=== PATIENT | male | born 1940 | race Caucasian/White ===

== ENCOUNTER 2017-05-08 06:32 | Day surgery (SDC) | payer OTHER ==
[~2017-05-08] VITALS: Ht 167.6 cm; Wt 92.7 kg
[~2017-05-08 06:32] MED LIST: FURO1TAB93 PO; LISI40TA PO; NEBI20 PO; PROS5TAB2 PO
[2017-05-08 06:52] VITALS: BP 128/65; PULSE 115; RESP 18; TEMP 97.7; O2SAT 94
[2017-05-08] MEDS ORDERED: AMLO5TAB2 PO (07:06)
[2017-05-08] MEDS ORDERED: LISI40TA PO (07:06)
[2017-05-08] MEDS ORDERED: FINA5TAB2 PO (07:06)
[2017-05-08] MEDS ORDERED: SPIR50TA PO (07:06)
[2017-05-08] MEDS ORDERED: OXYC1TAB63 PO (07:06)
[2017-05-08] MEDS ORDERED: IBUP1TAB7 PO (07:06)
[2017-05-08] MEDS ORDERED: UMEC1AER INH (07:06)
[2017-05-08] MEDS ORDERED: TRAM50TA PO (07:06)
[2017-05-08] MEDS ORDERED: HYDR50TA3 PO (07:06)
[2017-05-08] MEDS ORDERED: OMEP20TA93 PO (07:06)
[2017-05-08] MEDS ORDERED: METO50TA PO (07:06)
[2017-05-08] MEDS ORDERED: LIDOCAINE HCL 1% 20 ML VIAL ONE (07:58)
[2017-05-08] MEDS ORDERED: SODIUM CHLOR 0.9% 1000 ML IV SCH (08:00)
[2017-05-08] MEDS ORDERED: MIDAZOLAM HCL 2 MG/2 ML VIAL ONE (08:04)
[2017-05-08] MEDS ORDERED: fentaNYL CITRATE 250 MCG/5 ML AMP ONE (08:04)
--- NOTE | 2017-05-08 08:47 | PD.RAD ---
Post CT Procedure Prog Note Pre Procedure Diagnosis: (1) Lung mass Post Procedure Diagnosis: (1) Lung mass Procedure Date: May 08, 2017 Supervising Radiologist: Yung Lim Proceduralist/Assist: lisandra allan Estimated blood loss: none Anesthesia: Conscious Sedation Plan of Activity Patient to Unit: [facility] Patient Condition: Good See PACS Report for procedural detail/treatment Yung Lim MD May 08, 2017 08:47
[2017-05-08 09:00] VITALS: BP 110/57; PULSE 105; RESP 18; TEMP 98.5; O2SAT 92
[2017-05-08] MEDS ORDERED: oxyCODONE/ACETAMINOPHEN 5 MG/325 MG TAB PO PRN (09:00)
[2017-05-08 09:45] VITALS: BP 114/55; PULSE 98; RESP 18; O2SAT 97
[2017-05-08 10:15] VITALS: BP 106/55; PULSE 103; RESP 18; O2SAT 96
[2017-05-08 10:45] VITALS: BP 118/66; PULSE 105; RESP 18; O2SAT 94
--- NOTE | 2017-05-08 10:54 | RADRPT ---
EXAM DATE/TIME: 05/08/2017 10:05 [facility] COMPARISON: CT NEEDLE BIOPSY LUNG, RIGHT, May 08, 2017, 8:33. INDICATIONS : Post lung biopsy MEDICAL HISTORY : None. SURGICAL HISTORY : None. ENCOUNTER: Initial ACUITY: 1 day PAIN SCORE: 0/10 LOCATION: Bilateral chest FINDINGS: A single frontal expiratory view of the chest was performed. Right basilar pleural-parenchymal densit y and mass. No evidence of pneumothorax. Elevation right hemidiaphragm. Mediastinal structures are i n the midline. CONCLUSION: No pneumothorax status post biopsy on the right. Yung Lim MD on May 08, 2017 at 10:51 Board Certified Radiologist. This report was verified electronically.
[2017-05-08 11:15] VITALS: BP 113/52; PULSE 107; RESP 16; O2SAT 92
--- NOTE | 2017-05-08 16:05 | RADRPT ---
EXAM DATE/TIME: 05/08/2017 08:33 [facility] COMPARISON: No previous studies available for comparison. INDICATIONS : Right lung mass. SEDATION TIME: minutes BIOPSY SITE: MEDICATION(S): 1.) 2 mg midazolam (Versed) IV 2.) 150 mcg fentanyl (Sublimaze) IV DEVICE(S): 1.) 20 gauge Temno core biopsy needle MEDICAL HISTORY : Hypertension. Emphysema. Chronic obstructive pulmonary disease. SURGICAL HISTORY : None. ENCOUNTER: Initial ACUITY: 1 day PAIN SCORE: 0/10 LOCATION: Right chest A total of three core specimen(s) were obtained and sent to the laboratory for pathologic evaluation. PROCEDURE: 1. CT guided lung biopsy. 2. Conscious sedation with continuous EKG and oximetry monitoring. 3. EKG and oximetry remained stable throughout the procedure. Prior to the procedure informed consent was obtained. Any appropriate prior imaging studies were rev iewed. Using automated exposure control and adjustment of the mA and/or kV according to patient size, radiation dose was kept as low as reasonably achievable to obtain optimal diagnostic quality images. DICOM format image data is available electronically for review and comparison. The site was prepped in a sterile fashion. Full sterile technique was used, including cap, mask, alison rile gloves and gown and a large sterile sheet. Hand hygiene and 2% chlorhexidine and/or betadine/al cohol prep was utilized per protocol for cutaneous antisepsis. The skin and subcutaneous tissues wer e infiltrated with local anesthetic solution. With CT guidance the previously identified target was localized. Biopsy was performed using the presc ribed needle as above. Adequate hemostasis was obtained with compression at the puncture site. Follow-up CT scan reveals no pneumothorax. Conscious sedation was performed with the prescribed dosages and duration as above in the presence of an independent trained radiology nurse to assist in the monitoring of the patient. EKG and oximetry remained stable throughout the procedure. The patient tolerated the procedure well and there were no complications. The patient was sent to Radiology Outpatient Unit in stable condition. CONCLUSION: Uncomplicated CT guided biopsy of the mass in the right middle lobe at the cardiophrenic angle. Yung Lim MD on May 08, 2017 at 16:02 Board Certified Radiologist. This report was verified electronically.
== END 2017-05-08 13:10 | disposition home or self-care (01) ==
LOC: HRAD 06:32 → HRIP 06:43 → HRAD 13:10
PROVIDERS: ATTEND Internal Medicine Hematology & Oncology
DX: C34.91 Malignant neoplasm of unspecified part of right bronchus or lung (principal); I10 Essential (primary) hypertension; J44.9 Chronic obstructive pulmonary disease, unspecified
CPT/HCPCS: 32405; 71045; 77012; 88305; 88341; 88342; J2250; J3010; J7030

== ENCOUNTER → 2017-05-13 | Day surgery (SDC) | payer OTHER ==
[~2017-05-13] MED LIST changes: +AMLO5TAB2 PO; +BUPIVACAINE/EPINEPHRINE 0.25% PF 10 ML VIAL ONE; +COQ-100C5 PO; +DEXA1TAB PO; +DURA12DI T-DERMAL; +FINA5TAB2 PO; +FOLI1TAB6 PO; -FURO1TAB93 PO; +HYDR-3288 PO; +HYDR50TA3 PO; +IBUP1TAB7 PO; +LACT10SO PO; +LOPE-1 PO; +METO50TA PO; -NEBI20 PO; +OMEP20TA93 PO; +OXYC1TAB63 PO; +POME1CAP PO; +PROC10TA PO; -PROS5TAB2 PO; +RESV1CAP2 PO; +SELE50TA PO; +SODIUM CHLORIDE 0.9% INJ 0 ML ONE; +SPIR50TA PO; +TRAM50TA PO; +UMEC1AER INH; +VITA250T3 PO; +VITA400T18 PO; +ZOFR8TAB PO; +[UNRECOGNIZED DRUG - CODE] PO
== END | disposition home or self-care (01) ==
LOC: ESDC 12:06
PROVIDERS: ATTEND Surgery Trauma Surgery
DX: C34.90 Malignant neoplasm of unspecified part of unspecified bronchus or lung (principal); Z53.9 Procedure and treatment not carried out, unspecified reason
CPT/HCPCS: J1642

== ENCOUNTER 2017-05-22 12:09 | Inpatient (IN) | payer OTHER ==
[2017-05-22] VITALS (11 sets, daily range): BP systolic 92–135; BP diastolic 54–82; PULSE 105–122; RESP 13–24; TEMP 97.6–98; O2SAT 94–98
[~2017-05-22] VITALS: Ht 170.2 cm; Wt 81.0 kg
[~2017-05-22 12:09] MED LIST changes: -BUPIVACAINE/EPINEPHRINE 0.25% PF 10 ML VIAL ONE; -COQ-100C5 PO; -DEXA1TAB PO; -DURA12DI T-DERMAL; -FOLI1TAB6 PO; -HYDR-3288 PO; -LACT10SO PO; -LOPE-1 PO; -POME1CAP PO; -PROC10TA PO; -RESV1CAP2 PO; -SELE50TA PO; -SODIUM CHLORIDE 0.9% INJ 0 ML ONE; -VITA250T3 PO; -VITA400T18 PO; -ZOFR8TAB PO; -[UNRECOGNIZED DRUG - CODE] PO
[2017-05-22] MEDS ORDERED: SODIUM CHLOR 0.9% 1000 ML INJ 1,000 ML IV SCH (12:23)
[2017-05-22] MEDS ORDERED: SODIUM CHLORIDE 0.9% FLUSH 10 ML FLUSH IV FLUSH PRN (12:30)
--- NOTE | 2017-05-22 12:34 | PD ---
HPI Chief Complaint: General Weakness Time Seen by Provider: 12:22 Travel History International Travel<30 days: No Contact w/Intl Traveler<30days: No Traveled to known affect area: No History of Present Illness HPI Patient is a 76-year-old male presenting to emergency department for evaluation of generalized weakness. Patient was at the oncology clinic today where he was noted to have a systolic blood pressure in the 70s. He reported feeling short of breath and the event was called to transport patient. Patient states he's had a decreased appetite and has felt weak for several days. He reports mild abdominal pain, loose stools last night. He denies any nausea or vomiting, fever, chills, chest pain. Symptom onset was gradual, exacerbating factors include activity. There were no alleviating factors. Patient was diagnosed with lung cancer in March and he had his first round of chemotherapy last Friday. A note was sent from the nurse at the oncology clinic and family reported to them that his blood pressure has been lower at home as well. He has not had any blood pressure medications this morning. He does have a fentanyl patch on and took a dose of hydrocodone around 9 AM this morning. Past medical history significant for COPD, lung cancer, hypertension, BPH. Patient is also undergoing radiation therapy. PFSH Past Medical History Arthritis: Yes Cancer: Yes (lung) Chemotherapy: Yes (LUNG CANCER ) Genitourinary: Yes (BPH) Hypertension: Yes Implanted Vascular Access Dvce: Yes (left chest port) Respiratory: Yes (copd, emphysema) ?: Not Past Surgical History Cholecystectomy: Yes Joint Replacement: No Pacemaker: No Social History Alcohol Use: No Tobacco Use: No Substance Use: No Allergies-Medications (Allergen,Severity, Reaction): Coded Allergies: No Known Allergies (Unverified , 05/06/14) Reported Meds & Prescriptions Reported Meds & Active Scripts Active Reported Pomegranate (Pomegranate Fruit Extract) 250 Mg Capsule 250 Mg PO DAILY Resveratrol 250 Mg Cap 250 Mg PO DAILY Coq-10 Tr (Coenzyme Q10 (Ubidecarenone)) 100 Mg Cap 100 Mg PO DAILY Oceanic Selenium (Selenium) 50 Mcg Tab 50 Mcg PO DAILY Vitamin E (Vitamin E Acid Succinate) 400 Unit Tablet 400 Units PO DAILY Vitamin C (Ascorbic Acid) 250 Mg Tab 500 Mg PO DAILY Vitamin A 25,000 Unit Capsule 25,000 Units PO DAILY Imodium A-D (Loperamide HCl) 2 Mg Capsule 2 Mg PO DIRECTED PRN One capsule after each loose stool. Not to exceed 4 tablets per day. Lactulose Liq (Lactulose) 10 Gm/15 Ml Soln 15 Ml PO Q6H PRN Prochlorperazine Maleate 10 Mg Tab 10 Mg PO HS Zofran (Ondansetron HCl) 8 Mg Tab 8 Mg PO TID [place] (Hydrocodone-Acetaminophen) 7.5-325 mg Tab 1 Tab PO Q4-6H PRN Duragesic Patch 72 HR (Fentanyl) 12 Mcg/Hr Patch 24 Mcg T-DERMAL Q72H Remove old patch when new one placed. Dexamethasone 1 Mg Tab 1 Mg PO DIRECTED Take 1 tablet (1mg) 2 days before & day after Chemo Folic Acid 1 Mg Tablet 1 Mg PO DAILY Spironolactone 50 Mg Tab 50 Mg PO DAILY Finasteride 5 Mg Tab 5 Mg PO DAILY Do not crush. Amlodipine (Amlodipine Besylate) 5 Mg Tab 5 Mg PO DAILY Metoprolol Tartrate 50 Mg Tab 50 Mg PO DAILY Lisinopril 40 Mg Tab 40 Mg PO DAILY Anoro Ellipta Inh (Umeclidinium/Vilanterol) 62.5-25 Mcg/Act Aero 1 Puff INH DAILY Review of Systems Except as stated in HPI: all other systems reviewed are Neg General / Constitutional: No: Fever, Chills HENT: No: Headaches Cardiovascular: Positive: Edema, No: Chest Pain or Discomfort Respiratory: Positive: Shortness of Breath Gastrointestinal: Positive: Diarrhea, Abdominal Pain, Changes in Bowel Habits, Loss of Appetite, No: Nausea, Vomiting Genitourinary: Positive: Decreased Urinary Output Musculoskeletal: No: Myalgias Neurologic: Positive: Weakness, No: Dizziness, Syncope, Focal Abnormalities Physical Exam Narrative GENERAL: Overweight, well-developed, alert elderly gentleman. Resting comfortably in no acute distress. SKIN: Warm and dry. HEAD: Atraumatic. Normocephalic. EYES: Pupils equal and round. No scleral icterus. No injection or drainage. ENT: No nasal bleeding or discharge. Mucous membranes pink and moist. NECK: Trachea midline. No JVD. CARDIOVASCULAR: Mildly tachycardic RESPIRATORY: No accessory muscle use. Prolonged expiratory wheezes in bases bilaterally. GASTROINTESTINAL: Abdomen soft, mildly tender diffusely, mildly distended. Hepatic and splenic margins not palpable. Positive bowel sounds, positive guarding, no rebound. MUSCULOSKELETAL: Extremities without clubbing, cyanosis. 1+ pitting edema. No obvious deformities. NEUROLOGICAL: Awake and alert. No obvious cranial nerve deficits. Motor grossly within normal limits. Five out of 5 muscle strength in the arms and legs. Normal speech. PSYCHIATRIC: Appropriate mood and affect; insight and judgment normal. Data Data Last Documented VS Vital Signs Date Time Temp Pulse Resp B/P (MAP) Pulse Ox O2 Delivery O2 Flow Rate FiO2 05/22/17 12:49 110 20 98 Nasal Cannula 2.00 05/22/17 12:20 109/57 (74) Orders Orders Complete Blood Count With Diff (05/22/17 12:23) Comprehensive Metabolic Panel (05/22/17 12:23) Lipase (05/22/17 12:23) Prothrombin Time / Inr (Pt) (05/22/17 12:23) Act Partial Throm Time (Ptt) (05/22/17 12:23) Urinalysis - C+S If Indicated (05/22/17 12:23) Iv Access Insert/Monitor (05/22/17 12:23) Ecg Monitoring (05/22/17 12:23) Oximetry (05/22/17 12:23) NPO (05/22/17 12:23) Sodium Chlor 0.9% 1000 Ml Inj (Ns 1000 M (05/22/17 12:23) Sodium Chloride 0.9% Flush (Ns Flush) (05/22/17 12:30) Electrocardiogram (05/22/17 12:23) Chest, Single Ap (05/22/17 12:23) Oxygen Administration (05/22/17 12:23) Ct Abd/Pel W/O Iv Contrast (05/22/17 ) B-Type Natriuretic Peptide (05/22/17 12:34) Admit Order (Ed Use Only) (05/22/17 13:43) Labs Laboratory Tests Test 05/22/17 12:42 White Blood Count 0.9 TH/MM3 Red Blood Count 3.29 MIL/MM3 Hemoglobin 10.3 GM/DL Hematocrit 30.2 % Mean Corpuscular Volume 91.8 FL Mean Corpuscular Hemoglobin 31.2 PG Mean Corpuscular Hemoglobin Concent 33.9 % Red Cell Distribution Width 12.8 % Platelet Count 116 TH/MM3 Mean Platelet Volume 8.6 FL CBC Comment AUTO DIFF Differential Total Cells Counted 100 Neutrophils % (Manual) 69 % Band Neutrophils % 7 % Lymphocytes % 18 % Monocytes % 2 % Eosinophils % 4 % Neutrophils # (Manual) 0.7 TH/MM3 Differential Comment FINAL DIFF MANUAL Toxic Granulation 2+ Platelet Estimate LOW Platelet Morphology Comment NORMAL Red Cell Morphology Comment NORMAL Prothrombin Time 10.7 SEC Prothromb Time International Ratio 1.1 RATIO Activated Partial Thromboplast Time 26.1 SEC Blood Urea Nitrogen 112 MG/DL Creatinine 2.51 MG/DL Random Glucose 165 MG/DL Total Protein 5.9 GM/DL Albumin 2.8 GM/DL Calcium Level 9.7 MG/DL Alkaline Phosphatase 51 U/L Aspartate Amino Transf (AST/SGOT) 5 U/L Alanine Aminotransferase (ALT/SGPT) 20 U/L Total Bilirubin 0.3 MG/DL Sodium Level 137 MEQ/L Potassium Level 4.3 MEQ/L Chloride Level 109 MEQ/L Carbon Dioxide Level 17.8 MEQ/L Anion Gap 10 MEQ/L Estimat Glomerular Filtration Rate 25 ML/MIN B-Type Natriuretic Peptide 45 PG/ML Lipase 71 U/L MDM Medical Decision Making Medical Screen Exam Complete: Yes Emergency Medical Condition: Yes Interpretation(s) Last Impressions Chest X-Ray 05/22/17 1223 Signed Impressions: Service Date/Time: April 12:41 - CONCLUSION: Increase in size of right pleural effusion and the right lung base consolidation and/or compressive collapse. Nino Brunner MD Laboratory Tests Test 05/22/17 12:42 White Blood Count 0.9 TH/MM3 Red Blood Count 3.29 MIL/MM3 Hemoglobin 10.3 GM/DL Hematocrit 30.2 % Mean Corpuscular Volume 91.8 FL Mean Corpuscular Hemoglobin 31.2 PG Mean Corpuscular Hemoglobin Concent 33.9 % Red Cell Distribution Width 12.8 % Platelet Count 116 TH/MM3 Mean Platelet Volume 8.6 FL CBC Comment AUTO DIFF Prothrombin Time 10.7 SEC Prothromb Time International Ratio 1.1 RATIO Activated Partial Thromboplast Time 26.1 SEC Blood Urea Nitrogen 112 MG/DL Creatinine 2.51 MG/DL Random Glucose 165 MG/DL Total Protein 5.9 GM/DL Albumin 2.8 GM/DL Calcium Level 9.7 MG/DL Alkaline Phosphatase 51 U/L Aspartate Amino Transf (AST/SGOT) 5 U/L Alanine Aminotransferase (ALT/SGPT) 20 U/L Total Bilirubin 0.3 MG/DL Sodium Level 137 MEQ/L Potassium Level 4.3 MEQ/L Chloride Level 109 MEQ/L Carbon Dioxide Level 17.8 MEQ/L Anion Gap 10 MEQ/L Estimat Glomerular Filtration Rate 25 ML/MIN Lipase 71 U/L Vital Signs Date Time Temp Pulse Resp B/P (MAP) Pulse Ox O2 Delivery O2 Flow Rate FiO2 05/22/17 12:20 105 20 109/57 (74) 98 Differential Diagnosis Metabolic abnormality versus cardiac arrhythmia versus congestive heart failure versus other Narrative Course Patient is a 76-year-old male presenting from the oncology office for evaluation of generalized weakness. Patient is mildly hypotensive and mildly tachycardic on arrival. Patient is requiring 2 L of oxygen to maintain O2 sat. Per EMS patient was mildly hypoxic on arrival and they placed the oxygen on him initially. He appears fatigued and is requiring oxygen at this time. Initially he had no complaints of abdominal pain however on exam he was tender to light palpation. He then admitted that he has had abdominal pain. Labs and imaging ordered and pending. Initial EKG shows sinus tachycardia with a right bundle branch block. Rate is 100. CBC with a white blood cell count of 0.9, this is new when compared to prior. Chemistry with elevated BUN and creatinine of 112/2.51 Chest x-ray was read by radiologist as increase in size of the right pleural effusion and the right lung base consolidation and/or compressive collapse. CT scan of the abdomen/pelvis with no acute findings. BNP is normal Discussed findings and plan of care with my attending physician. Patient will be admitted at this time. Discussed with Dr. Sanchez who accepted admission. Admission orders place. Diagnosis Primary Impression: Pleural effusion Additional Impressions: Neutropenia Qualified Codes: D70.9 - Neutropenia, unspecified Weakness generalized KELLIE (acute kidney injury) Lung cancer Qualified Codes: C34.90 - Malignant neoplasm of unspecified part of unspecified bronchus or lung Admitting Information Admitting Physician Requests: Admit Condition: Stable Caroline Carlson May 22, 2017 12:34
[2017-05-22 12:54] LABS: HEMATOCRIT 30.2 % (39.0-51.0); HEMOGLOBIN 10.3 GM/DL (13.0-17.0); MEAN CELL VOLUME 91.8 FL (80.0-100.0); MEAN CORPUSCULAR HEMOGLOBIN 31.2 PG (27.0-34.0); MEAN CORPUSCULAR HGB CONC 33.9 % (32.0-36.0); MEAN PLATELET VOLUME 8.6 FL (7.0-11.0); PLATELET COUNT 116 TH/MM3 (150-450); RED BLOOD COUNT 3.29 MIL/MM3 (4.50-5.90); RED CELL DISTRIBUTION WIDTH 12.8 % (11.6-17.2); WHITE BLOOD COUNT 0.9 TH/MM3 (4.0-11.0)
--- NOTE | 2017-05-22 13:05 | RADRPT ---
EXAM DATE/TIME: 05/22/2017 12:41 [facility] COMPARISON: CHEST EXPIRATION ONLY, May 08, 2017, 10:05. INDICATIONS : Short of breath. MEDICAL HISTORY : Carcinoma, lung. Hypertension. Emphysema. Chronic obstructive pulmonary disease. SURGICAL HISTORY : Infuse a port. ENCOUNTER: Initial ACUITY: 1 day PAIN SCORE: 0/10 LOCATION: Bilateral chest FINDINGS: Large right pleural effusion is present increased in size since prior exam. There is right lung base consolidation and/or compressive glass. Heart and mediastinum are unremarkable for technique. CONCLUSION: Increase in size of right pleural effusion and the right lung base consolidation and/or compressive c ollapse. Nino Brunner MD on May 22, 2017 at 12:59 Board Certified Radiologist. This report was verified electronically.
[2017-05-22 13:07] LABS: INTERNATIONAL NORMALIZED RATIO 1.1 RATIO; PROTHROMBIN TIME - PATIENT 10.7 SEC (9.8-11.6)
[2017-05-22 13:08] LABS: ALBUMIN 2.8 GM/DL (3.4-5.0); ALT (GPT) 20 U/L (12-78); AST (GOT) 5 U/L (15-37); BICARBONATE 17.8 MEQ/L (21.0-32.0); BLOOD UREA NITROGEN 112 MG/DL (7-18); CALCIUM 9.7 MG/DL (8.5-10.1); CHLORIDE 109 MEQ/L (98-107); CREATININE 2.51 MG/DL (0.60-1.30); GLOMERULAR FILTRATION RATE 25 ML/MIN (>89); GLUCOSE,RANDOM 165 MG/DL (74-106); LIPASE 71 U/L (73-393); SODIUM (NA) 137 MEQ/L (136-145)
[2017-05-22 13:10] LABS: ALKALINE PHOSPHATASE 51 U/L (45-117); TOTAL BILIRUBIN ADULT 0.3 MG/DL (0.2-1.0); TOTAL PROTEIN 5.9 GM/DL (6.4-8.2)
[2017-05-22] MEDS ORDERED: DURA12DI T-DERMAL (13:16)
[2017-05-22] MEDS ORDERED: ZOFR8TAB PO (13:16)
[2017-05-22] MEDS ORDERED: HYDR-3288 PO (13:16)
[2017-05-22] MEDS ORDERED: PROC10TA PO (13:16)
[2017-05-22] MEDS ORDERED: DEXA1TAB PO (13:16)
[2017-05-22] MEDS ORDERED: FOLI1TAB6 PO (13:16)
[2017-05-22] MEDS ORDERED: LOPE-1 PO (13:16)
[2017-05-22] MEDS ORDERED: LACT10SO PO (13:16)
[2017-05-22] MEDS ORDERED: VITA250T3 PO (13:24)
[2017-05-22] MEDS ORDERED: VITA400T18 PO (13:24)
[2017-05-22] MEDS ORDERED: RESV1CAP2 PO (13:24)
[2017-05-22] MEDS ORDERED: COQ-100C5 PO (13:24)
[2017-05-22] MEDS ORDERED: POME1CAP PO (13:24)
[2017-05-22] MEDS ORDERED: [UNRECOGNIZED DRUG - CODE] PO (13:24)
[2017-05-22] MEDS ORDERED: SELE50TA PO (13:24)
[2017-05-22 13:35] LABS: BANDS 7 % (0-6); LYMPHOCYTES 18 % (9-44); MONOCYTES 2 % (0-8); NEUTROPHIL # MANUAL DIFF 0.7 TH/MM3 (1.8-7.7); POLYS (SEG NEUTROPHILS) 69 % (16-70)
[2017-05-22 13:36] LABS: TOXIC GRANULATION 2+ (NORMAL)
[2017-05-22] MEDS ORDERED: NALOXONE HCL 0.4 MG/ML AMP IV PUSH PRN (13:45)
[2017-05-22] MEDS ORDERED: ONDANSETRON HCL 4 MG/2 ML VIAL IVP PRN (13:45)
[2017-05-22] MEDS ORDERED: ACETAMINOPHEN 325 MG TAB PO PRN (13:45)
--- NOTE | 2017-05-22 14:07 | RADRPT ---
EXAM DATE/TIME: 05/22/2017 13:32 [facility] COMPARISON: No previous studies available for comparison. INDICATIONS : Weakness, diarrhea . ORAL CONTRAST: No oral contrast ingested. RADIATION DOSE: 16.41 CTDIvol (mGy) MEDICAL HISTORY : Hypertension. Metastatic, lung. SURGICAL HISTORY : None. ENCOUNTER: Initial ACUITY: 1 day PAIN SCALE: 7/10 LOCATION: Right TECHNIQUE: Volumetric scanning of the abdomen and pelvis was performed. Using automated exposure control and ad justment of the mA and/or kV according to patient size, radiation dose was kept as low as reasonably achievable to obtain optimal diagnostic quality images. DICOM format image data is available electro nically for review and comparison. FINDINGS: LOWER LUNGS: There is a large right-sided pleural effusion with associated passive atelectasis of the right lower lobe. No effusion seen on the left. The heart is normal in size without pericardial effusion. There i s a rounded masslike area consolidation involving the anterior inferior portion of the right hilum. T his measures 4.3 x 2.6 cm. And 1.6 x 1.6 cm pleural-based nodule seen anteriorly within the lingula. Adjacent to this is smooth pleural thickening. A calcified granuloma is seen within the left base. LIVER: Homogeneous density without lesion. There is no dilation of the biliary tree. Prior cholecystectomy. SPLEEN: Normal size without lesion. PANCREAS: Within normal limits. KIDNEYS: Normal in size and shape. There is no mass, stone, or hydronephrosis. ADRENAL GLANDS: There is a 4.0 x 2.9 cm mass involving the left adrenal gland. The right adrenal gland is unremarkabl e. VASCULAR: Calcified atherosclerotic plaque throughout the aorta and inflow vessels. No aneurysmal change. BOWEL/MESENTERY: The stomach, small bowel, and colon demonstrate no acute abnormality. There is no free intraperitone al air or fluid. ABDOMINAL WALL: Within normal limits. RETROPERITONEUM: There is no lymphadenopathy. BLADDER: No wall thickening or mass. REPRODUCTIVE: Within normal limits. INGUINAL: There is no lymphadenopathy or hernia. MUSCULOSKELETAL: Multiple lytic metastatic lesions scattered throughout the pelvis, lumbar spine, and visualized thora cic spine, and visualized ribs bilaterally. The largest lesion involves the right sacral ala. There i s a metastatic lesion involving the left posterior portion of the T10 vertebral body that extends int o the neural foramen. There is a metastatic lesion involving the L1 pedicle on the left which also ex tends towards the neural foramen. CONCLUSION: 1. Diffuse metastatic disease to the visualized bony structures, left adrenal gland, and visualized l solomon parenchyma. Special note is made of destructive lesions involving the T10 and L1 levels that invo lve the left neural foramen and could be possible source of the left radiculopathy. 2. Large right-sided pleural effusion. 3. Prior cholecystectomy. Quinn Huang Jr., MD on May 22, 2017 at 13:57 Board Certified Radiologist. This report was verified electronically.
[2017-05-22 14:42] LABS: BILIRUBIN, URINE NEG (NEG); BLOOD, URINE NEG (NEG); GLUCOSE,URINE NEG (NEG); HYALINE CAST, URINE 3 /lpf (RARE); KETONE, URINE NEG (NEG); MUCUS URINE FEW /lpf (OCC); NITRITE,URINE NEG (NEG); SQUAMOUS EPITHELIAL CELL URINE <1 /hpf (0-5); URINE COLOR LIGHT-YELLOW (YELLW/STRAW); URINE LEUKOCYTE ESTERASE NEG (NEG)
--- NOTE | 2017-05-22 14:42 | HHI.HP ---
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 History mostly taken from patient's ywugonim-kr-jxz Gerry. Patient was short of breath and did not want to give a history. Per jzokxmss-co-slf patient had chemotherapy on Friday in which yesterday he developed diarrhea, shortness of breathing, generalized weakness, and emesis. Patient has had decreased appetite recently. Positive for chills but denies any fevers. Daughter in law stated that she also checked his blood pressure yesterday in which his blood pressure was in the lower 100s. She stated that on his antihypertensive medication is usually normal. She also stated that patient had increase in his pain medication doses. She patient does complain of pain. Pain is located in the back. Daughter stated that pain has worsened and that is the reason why he had a recent increase and his [place]. Patient was seen in radiation with Leslie Nowak. He stated that they did vitals and he was sent to the emergency department because his vitals. Per ED provider she was told systolic blood pressure was in the 70s. During my interview the patient systolic blood pressure in the low 100s. Patient also asking for his Mucinex and pain medication. Per uqnwnkhv-oq-rgw patient saw Dr. Young plater helper and also sees Dr. Gregorio oncologist. Patient continues to smoke about 1-1/2 pack per day which is a lot less from his 3-4 packs a day. Occasionally drinks alcohol. Denies any illicit drug use. All other review system reviewed and negative. All other review system reviewed and negative. Past Family Social History Past Medical History Non-small cell lung cancer with metastases to the bone Hypertension Tobacco dependence Past Surgical History Left knee arthroscopically Cholecystectomy Biopsy of the lungs Reported Medications Pomegranate (Pomegranate Fruit Extract) 250 Mg Capsule 250 Mg PO DAILY Resveratrol 250 Mg Cap 250 Mg PO DAILY Coq-10 Tr (Coenzyme Q10 (Ubidecarenone)) 100 Mg Cap 100 Mg PO DAILY Oceanic Selenium (Selenium) 50 Mcg Tab 50 Mcg PO DAILY Vitamin E (Vitamin E Acid Succinate) 400 Unit Tablet 400 Units PO DAILY Vitamin C (Ascorbic Acid) 250 Mg Tab 500 Mg PO DAILY Vitamin A 25,000 Unit Capsule 25,000 Units PO DAILY Imodium A-D (Loperamide HCl) 2 Mg Capsule 2 Mg PO DIRECTED PRN One capsule after each loose stool. Not to exceed 4 tablets per day. Lactulose Liq (Lactulose) 10 Gm/15 Ml Soln 15 Ml PO Q6H PRN Prochlorperazine Maleate 10 Mg Tab 10 Mg PO HS Zofran (Ondansetron HCl) 8 Mg Tab 8 Mg PO TID [place] (Hydrocodone-Acetaminophen) 7.5-325 mg Tab 1 Tab PO Q4-6H PRN Duragesic Patch 72 HR (Fentanyl) 12 Mcg/Hr Patch 24 Mcg T-DERMAL Q72H Remove old patch when new one placed. Dexamethasone 1 Mg Tab 1 Mg PO DIRECTED Take 1 tablet (1mg) 2 days before & day after Chemo Folic Acid 1 Mg Tablet 1 Mg PO DAILY Spironolactone 50 Mg Tab 50 Mg PO DAILY Finasteride 5 Mg Tab 5 Mg PO DAILY Do not crush. Amlodipine (Amlodipine Besylate) 5 Mg Tab 5 Mg PO DAILY Metoprolol Tartrate 50 Mg Tab 50 Mg PO DAILY Lisinopril 40 Mg Tab 40 Mg PO DAILY Anoro Ellipta Inh (Umeclidinium/Vilanterol) 62.5-25 Mcg/Act Aero 1 Puff INH DAILY Allergies: Coded Allergies: No Known Allergies (Unverified , 05/06/14) Active Ordered Medications Current Medications Sodium Chloride 1,000 ml @ 1,000 mls/hr Q1H IV Last administered on 05/22/17at 12:58; Start 05/22/17 at 12:23; Stop 05/22/17 at 13:22; Status DC Sodium Chloride (NS Flush) 2 ml UNSCH PRN IV FLUSH FLUSH AFTER USING IV ACCESS ; Start 05/22/17 at 12:30; Stop 05/22/17 at 13:53; Status DC Sodium Chloride (NS Flush) 2 ml UNSCH PRN IV FLUSH FLUSH AFTER USING IV ACCESS ; Start 05/22/17 at 13:45 Sodium Chloride (NS Flush) 2 ml BID IV FLUSH ; Start 05/22/17 at 21:00 Acetaminophen (Tylenol) 650 mg Q4H PRN PO TEMP > 100.4; Start 05/22/17 at 13:45 Ondansetron HCl (Zofran Inj) 4 mg Q6H PRN IVP NAUSEA OR VOMITING; Start at 13:45 Naloxone HCl (Narcan Inj) 0.4 mg UNSCH PRN IV PUSH SEE LABEL COMMENTS; Start at 13:45 Guaifenesin (Mucinex Er) 1,200 mg BID PO ; Start 05/22/17 at 14:30 Dexamethasone (Decadron) 1 mg DAILY PO ; Start 05/23/17 at 09:00; Status UNV Folic Acid (Folate) 1 mg DAILY PO ; Start 05/23/17 at 09:00; Status UNV Non-Formulary Medication 500 mg DAILY PO ; Start 05/23/17 at 09:00; Status UNV Non-Formulary Medication 100 mg DAILY PO ; Start 05/23/17 at 09:00; Status UNV Non-Formulary Medication 250 mg DAILY PO ; Start 05/23/17 at 09:00; Status UNV Non-Formulary Medication 250 mg DAILY PO ; Start 05/23/17 at 09:00; Status UNV Non-Formulary Medication 50 mcg DAILY PO ; Start 05/23/17 at 09:00; Status UNV Non-Formulary Medication 25,000 units DAILY PO ; Start 05/23/17 at 09:00; Status UNV Non-Formulary Medication 400 units DAILY PO ; Start 05/23/17 at 09:00; Status UNV Acetaminophen/ Hydrocodone Bitart ([place] 5-325 Mg) 1 tab Q4H PRN PO pain>4; Start 05/22/17 at 14:45; Status UNV Family History Reviewed past family history noncontributory Social History Smokes one half pack per day of tobacco Occasional alcohol use Denies any illicit drug use. Physical Exam Vital Signs Vital Signs Date Time Temp Pulse Resp B/P (MAP) Pulse Ox O2 Delivery O2 Flow Rate FiO2 05/22/17 12:49 110 20 98 Nasal Cannula 2.00 05/22/17 12:49 98 Nasal Cannula 2.00 05/22/17 12:49 104 16 98 Nasal Cannula 2.00 05/22/17 12:20 105 16 109/57 (74) 98 Nasal Cannula 2.00 05/22/17 12:20 105 20 109/57 (74) 98 Physical Exam GENERAL: mild distress with labored breathing SKIN: No rashes, ecchymoses or lesions. Cool and dry. HEAD: Atraumatic. Normocephalic. No temporal or scalp tenderness. EYES: Pupils equal round and reactive. Extraocular motions intact. No scleral icterus. No injection or drainage. ENT: Nose without bleeding, purulent drainage or septal hematoma. Throat without erythema, tonsillar hypertrophy or exudate. Uvula midline. Airway patent. NECK: Trachea midline. No JVD or lymphadenopathy. Supple, nontender, no meningeal signs. CARDIOVASCULAR: Regular rate and rhythm without murmurs, gallops, or rubs. RESPIRATORY: Decreased breath sounds in the right basilar area otherwise clear to auscultation. No rhonchi or wheezing noted. GASTROINTESTINAL: Abdomen soft, non-tender, nondistended. No hepato-splenomegaly , or palpable masses. No guarding. MUSCULOSKELETAL: Positive tenderness to palpation in the lower back. +1 to trace edema the lower extremity. NEUROLOGICAL: Awake and alert. Cranial nerves II through XII intact. Motor and sensory grossly within normal limits. Five out of 5 muscle strength in all muscle groups. Normal speech. Laboratory Laboratory Tests Test 05/22/17 12:42 05/22/17 14:28 White Blood Count 0.9 Red Blood Count 3.29 Hemoglobin 10.3 Hematocrit 30.2 Mean Corpuscular Volume 91.8 Mean Corpuscular Hemoglobin 31.2 Mean Corpuscular Hemoglobin Concent 33.9 Red Cell Distribution Width 12.8 Platelet Count 116 Mean Platelet Volume 8.6 CBC Comment AUTO DIFF Differential Total Cells Counted 100 Neutrophils % (Manual) 69 Band Neutrophils % 7 Lymphocytes % 18 Monocytes % 2 Eosinophils % 4 Neutrophils # (Manual) 0.7 Differential Comment FINAL DIFF MANUAL Toxic Granulation 2+ Platelet Estimate LOW Platelet Morphology Comment NORMAL Red Cell Morphology Comment NORMAL Prothrombin Time 10.7 Prothromb Time International Ratio 1.1 Activated Partial Thromboplast Time 26.1 Blood Urea Nitrogen 112 Creatinine 2.51 Random Glucose 165 Total Protein 5.9 Albumin 2.8 Calcium Level 9.7 Alkaline Phosphatase 51 Aspartate Amino Transf (AST/SGOT) 5 Alanine Aminotransferase (ALT/SGPT) 20 Total Bilirubin 0.3 Sodium Level 137 Potassium Level 4.3 Chloride Level 109 Carbon Dioxide Level 17.8 Anion Gap 10 Estimat Glomerular Filtration Rate 25 B-Type Natriuretic Peptide 45 Lipase 71 Result Diagram: 05/22/17 1242 05/22/17 1242 Imaging Last Impressions Chest X-Ray 05/22/17 1223 Signed Impressions: Service Date/Time: April 12:41 - CONCLUSION: Increase in size of right pleural effusion and the right lung base consolidation and/or compressive collapse. Nino Brunner MD Abdomen/Pelvis CT 05/22/17 0000 Signed Impressions: Service Date/Time: April 13:32 - CONCLUSION: 1. Diffuse metastatic disease to the visualized bony structures, left adrenal gland, and visualized lung parenchyma. Special note is made of destructive lesions involving the T10 and L1 levels that involve the left neural foramen and could be possible source of the left radiculopathy. 2. Large right-sided pleural effusion. 3. Prior cholecystectomy. MD Jerri Garnica Jr. VTE Risk Assessment Caprini VTE Risk Assessment: Mod/High Risk (score >= 2) Caprini Risk Assessment Model Point Value = 1 Point Value = 2 Point Value = 3 Point Value = 5 Age 41-60 Minor surgery BMI > 25 kg/m2 Swollen legs Varicose veins or History of unexplained or recurrent spontaneous Oral contraceptives or hormone replacement Sepsis (< 1 month) Serious lung disease, including pneumonia (< 1 month) Abnormal pulmonary function Acute myocardial infarction Congestive heart failure (< 1 month) History of inflammatory bowel disease Medical patient at bed rest Age 61-74 Arthroscopic surgery Major open surgery (> 45 min) Laparoscopic surgery (> 45 min) Malignancy Confined to bed (> 72 hours) Immobilizing plaster cast Central venous access Age >= 75 History of VTE Family history of VTE Factor V Leiden Prothrombin [id number] Lupus anticoagulant Anticardiolipin antibodies Elevated serum homocysteine Heparin-induced thrombocytopenia Other congenital or acquired thrombophilia Stroke (< 1 month) Elective arthroplasty Hip, pelvis, or leg fracture Acute spinal cord injury (< 1 month) Prophylaxis Regimen Total Risk Factor Score Risk Level Prophylaxis Regimen 0-1 Low Early ambulation 2 Moderate Order ONE of the following: *Sequential Compression Device (SCD) *Heparin 5000 units SQ BID 3-4 Higher Order ONE of the following medications: *Heparin 5000 units SQ TID *Enoxaparin/Lovenox 40 mg SQ daily (WT < 150 kg, CrCl > 30 mL/min) *Enoxaparin/Lovenox 30 mg SQ daily (WT < 150 kg, CrCl > 10-29 mL/min) *Enoxaparin/Lovenox 30 mg SQ BID (WT < 150 kg, CrCl > 30 mL/min) AND/OR *Sequential Compression Device (SCD) 5 or more Highest Order ONE of the following medications: *Heparin 5000 units SQ TID (Preferred with Epidurals) *Enoxaparin/Lovenox 40 mg SQ daily (WT < 150 kg, CrCl > 30 mL/min) *Enoxaparin/Lovenox 30 mg SQ daily (WT < 150 kg, CrCl > 10-29 mL/min) *Enoxaparin/Lovenox 30 mg SQ BID (WT < 150 kg, CrCl > 30 mL/min) AND *Sequential Compression Device (SCD) Assessment and Plan Assessment and Plan This is a 76-year-old male with 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 Chest x-ray shows right-sided pleural effusion that was reviewed by me. -Patient currently on 2 L of oxygen but does have labored breathing. -We will supplement with oxygen. Consult plater helper. Recommend a therapeutic thoracentesis since patient is symptomatic. Will place order for that. Non-small cell lung cancer with metastases to the bone -Consult oncologist Dr. Gregorio. Neutropenia/anemia/mild thrombocytopenia -Status post chemotherapy on Friday -Consult his oncologist Dr. Gregorio. Hypotension -Review labs. Patient is third spacing with low albumin. Decrease oral intake along with diarrhea. -We will start IV fluids at a very low rate and be cautious due to pleural effusion. Will give a dose of albumin. -Will hold antihypertensive medication. Need to be cautious with pain medication due to side effects causing low blood pressure. Diarrhea -Mostly secondary to chemotherapy. Will check for C. difficile. -Refuse CT scan of the abdomen which shows metastases to the bones, left adrenal gland, and lungs. Acute on chronic pain secondary to metastatic disease -Patient on fentanyl patch and [place]. Will resume [place] at a low dose but will need to be cautious. If his blood pressure continues to improve and remain stable can be more aggressive with pain control. Acute on chronic renal failure -Patient was recently taken off of ibuprofen due to worsening renal function. -Most likely secondary to combination of hypotension and ibuprofen use. Not recommend NSAID use. -will give fluids as noted above. Ins and outs. Continue to monitor creatinine. Hypertension -Currently patient is hypotensive. See management as above. Failure to thrive -Secondary to cancer and chemotherapy treatment. -Will consult dietitian. Patient was put on Megace. Tobacco dependence -Patient has decreased amount of cigarettes he is smoking. Smoking cessation. DVT prophylaxis -Chemoprophylaxis held secondary to anticipating thoracentesis. Code Status DNR Discussed Condition With patient and with [id number]-[id number]. Physician Certification 2 Midnight Certification Type: Admission for Inpatient Services Order for Inpatient Services The services are ordered in accordance with Medicare regulations or non- Medicare payer requirements, as applicable. In the case of services not specified as inpatient-only, they are appropriately provided as inpatient services in accordance with the 2-midnight benchmark. Estimated LOS (days): 5 5 days is the estimated time the patient will need to remain in the hospital, assuming treatment plan goals are met and no additional complications. Post-Hospital Plan: Lidia Lezama MD May 22, 2017 14:42
[2017-05-22] MEDS ORDERED: ACETAMINOPHEN/HYDROcodone 325 MG/5 MG TAB PO PRN (14:45)
[2017-05-22] MEDS: guaiFENesin E.R. 600 MG TAB PO SCH (14:49)
[2017-05-22] MEDS ORDERED: ALBUMIN 25% INJ 50 ML IV ONE (15:15)
[2017-05-22] MEDS ORDERED: LIDOCAINE HCL 1% 20 ML VIAL ONE (15:48)
--- NOTE | 2017-05-22 16:06 | RADRPT ---
EXAM DATE/TIME: 05/22/2017 15:52 [facility] COMPARISON: CT NEEDLE BIOPSY LUNG, RIGHT, May 08, 2017, 8:33. CHEST EXPIRATION ONLY, May 08, 2017, 10:05 . INDICATIONS : Post right thoracentesis MEDICAL HISTORY : Hypertension. Metastatic, lung. SURGICAL HISTORY : None. ENCOUNTER: Subsequent ACUITY: 1 day PAIN SCORE: 3/10 LOCATION: Right chest FINDINGS: A single portable frontal view the chest shows mild atelectasis within the right base. No pneumothora x following right thoracentesis. The right lung has fully reexpanded. A masslike consolidation is aga in seen involving the right medial base. Stable. Left lung is clear with exception of areas of scarri ng. Heart is enlarged. No residual effusions. CONCLUSION: No pneumothorax following right thoracentesis. Quinn Huang Jr., MD on May 22, 2017 at 16:02 Board Certified Radiologist. This report was verified electronically.
--- NOTE | 2017-05-22 16:14 | RADRPT ---
EXAM DATE/TIME: 05/22/2017 14:56 [facility] COMPARISON: No previous studies available for comparison. EXTERNAL COMPARISON: [facility], XR CHEST, UPRIGHT, May 14 2017, PET/CT TUMOR, May 05, 2017, [facility], CT CHEST W /CONTRAST, April 29, 2017. INDICATIONS : Right pleural effusion. MEDICAL HISTORY : Benign prostatic hyperplasia, (BPH) Hypertension. Metastatic, lung. SURGICAL HISTORY : Cholecystectomy Port. ENCOUNTER: Initial ACUITY: 3 days PAIN SCORE: 4/10 LOCATION: Right chest FLUID: Total volume of 2400 cc of clear, yellow fluid was removed. Fluid was discarded. Thoracentesis was therapeutic only. TECHNIQUE: 1. Ultrasound guidance for thoracentesis. 2. Thoracentesis. The risks, benefits, and alternatives to ultrasound guided thoracentesis were explained to the patien t in lay simple terms, including the risk of bleeding and infection. Written and verbal informed con sent was obtained. Appropriate area for thoracentesis was marked under ultrasound guidance with the patient in the uprig ht position. Overlying skin was prepped and draped in the usual sterile fashion and with local anest hetic, a dermatotomy was made with an 11 blade scalpel. A 6 Brazilian thoracentesis catheter was placed in the pleural space and fluid was removed. Catheter was then removed and a sterile dressing applie d. There were no immediate complications. The patient tolerated the procedure well and the left the ultrasound suite in stable condition. Chest radiograph is to be obtained. CONCLUSION: Uncomplicated ultrasound guided right thoracentesis. Sampling was not requested. Quinn Huang Jr., MD on May 22, 2017 at 16:11 Board Certified Radiologist. This report was verified electronically.
[2017-05-22] MEDS: SODIUM CHLOR 0.9% 1000 ML INJ 1,000 ML IV SCH (18:30)
[2017-05-22] MEDS ORDERED: ACETAMINOPHEN/HYDROcodone 325 MG/10 MG TAB PO PRN (18:45)
[2017-05-22] MEDS ORDERED: MORPHINE SULFATE 2 MG/ML INJ IV PUSH PRN (18:45)
[2017-05-22] MEDS: FILGRASTIM 480 MCG/1.6 ML VIAL SQ SCH (19:07)
[2017-05-22] MEDS ORDERED: HYDROmorphone HCL PF 2 MG/ML VIAL IV PUSH ONE (19:45)
[2017-05-22] MEDS ORDERED: HYDROmorphone HCL PF 2 MG/ML VIAL IV PUSH PRN ×2 (19:45→20:15)
[2017-05-22] MEDS: MEGESTROL ACETATE SUSP 400 MG/10 ML CUP PO SCH (21:00)
[2017-05-22] MEDS: SODIUM CHLORIDE 0.9% FLUSH 10 ML FLUSH IV FLUSH SCH (21:00)
[2017-05-23] VITALS (22 sets, daily range): BP systolic 67–149; BP diastolic 43–74; PULSE 91–180; RESP 18–24; TEMP 97.9–98.7; O2SAT 95–100
[2017-05-23] MEDS: MEGESTROL ACETATE SUSP 400 MG/10 ML CUP PO SCH ×3 (06:01→15:20)
[2017-05-23] MEDS: SODIUM CHLORIDE 0.9% FLUSH 10 ML FLUSH IV FLUSH SCH ×2 (09:00→21:00)
[2017-05-23] MEDS ORDERED: [UNRECOGNIZED DRUG - OTHER] PO SCH (09:00)
[2017-05-23] MEDS ORDERED: LACTULOSE SYRUP 20 GM/30 ML CUP PO SCH (09:00)
[2017-05-23] MEDS ORDERED: COENZYME Q10 100 MG PO SCH (09:00)
[2017-05-23] MEDS ORDERED: RESVERATROL 250 MG PO SCH (09:00)
[2017-05-23] MEDS ORDERED: BETA CAROTENE 25,000 UNIT CAP PO SCH (09:00)
[2017-05-23] MEDS ORDERED: DEXAMETHASONE 0.5 MG TAB PO SCH (09:00)
[2017-05-23] MEDS ORDERED: SELENIUM 50 MCG PO SCH (09:00)
[2017-05-23] MEDS ORDERED: ASCORBIC ACID 500 MG TAB PO SCH (09:00)
[2017-05-23] MEDS ORDERED: PNEUMOCOCCAL POLYVALENT INJ 25 MCG/0.5 ML SYR IM ONE (09:00)
[2017-05-23] MEDS ORDERED: VITAMIN E 400 UNIT CAP PO SCH (09:00)
--- NOTE | 2017-05-23 09:55 | MB ---
cc: GENNA EM MD, RUBY ANNE E. M.D. DATE OF CONSULTATION 05/22/2017 DATE OF [address] Genna Em CHIEF COMPLAINT Dr. Em requested consultation for Mr. Acosta regarding metastatic pgx-njaqj-[id number] lung cancer post chemotherapy with neutropenia. HISTORY OF PRESENT ILLNESS Mr. Acosta is a 76-year-old man with a long history of tobacco use. He wade in [place]. He was found to have a large pleural based mass in the medial aspect of the right upper lobe with bony metastatic disease. CT/PET scan shows evidence of metastatic disease to the left adrenal gland in addition to a right pleural effusion and questionable solitary metastatic lesion to the liver. Biopsy showed a poorly differentiated non-small cell lung cancer, adenocarcinoma histology. EGFR, ALK, PD-L1 are still pending. He was offered palliative chemotherapy with carboplatin and Alimta on May 16, 2017. At that time, his creatinine was 1.6. His carboplatin was adjusted accordingly. Neulasta was requested through his insurance company, but was denied given that the stated risk of neutropenic fever associated with Alimta and carboplatin is only 5%. He was undergoing some palliative radiation treatment. He had progressive symptoms of weakness. He was short of breath. He was hypotensive at this time that his ymufykoy-at-jwz found him. He was advised to be brought to the emergency room. In the emergency room, he was afebrile with a temperature of 98.0. He was neutropenic, however with an ANC of 700. His heart rate was 105. His blood pressure was low at 109/57. Laboratory evaluation also shows thrombocytopenia, worsened renal insufficiency with a BUN of 112, creatinine of 2.51. He has stopped taking his ibuprofen at this point. He still has urinary symptoms as seen previously. He complains of nocturia. He is unable to empty his bladder completely. He feels that the bladder is still full. He had declined postvoid residual check in the clinic. He was pending follow up appointment with Dr. Barajas for his urologic symptoms. He was admitted to the hospital because of the above symptoms. Evaluation in the hospital shows worsening pleural effusion. In light of his symptoms, a thoracentesis was performed which was therapeutic. Mr. Acosta has received some benefit. He was complaining of a significant amount of pain. Pain-diane, his Fentanyl patch is increased to 25 mcg. He was taking his breakthrough medication. He is not taking any breakthrough medication and is quite uncomfortable all over at the time of the consultation. CT scan of the abdomen and pelvis showed the bony structures and a destructive lesion at T10 and 11 that is probably a source of his radiculopathy. These other sites are being targeted with radiation. He denies any fevers at home. He was feeling very weak this week. The rest of his review of systems is negative. PAST MEDICAL HISTORY 1. COPD 2. Chronic pain 3. Chronic tobacco use 4. Metastatic xxw-cbpko-jtea lung cancer adenocarcinoma Histology. 5 Chronic renal insufficiency 6. Chronic anemia PAST SURGICAL HISTORY 1. Left knee surgery 2. Colonoscopy 3. Port placement 4. Cholecystectomy 5. Gallbladder surgery ALLERGIES NO KNOWN DRUG ALLERGIES. FAMILY HISTORY Mother age 96. Father at age 56. SOCIAL HISTORY He is and retired. He smokes daily three packs a day for 60 years. He drinks daily. He drinks three drinks per day 7 days a week. Denies any illicit drug use. ALLERGIES NO KNOWN DRUG ALLERGIES. CURRENT MEDICATIONS Include: 1. Decadron 2. Folic acid 3. Vitamin C 4. Vitamin A 5. Vitamin E 6. Normal saline flush 7. V[place]on 8. Morphine 9. Neupogen was started PHYSICAL EXAMINATION VITAL SIGNS: Temperature 98.0, heart rate 120, respiratory rate 18, blood pressure 103/54, saturation 96%. GENERAL: Mr. Logan is a well-developed, heavy-set man forward head posturing. He looks uncomfortable sitting in a chair. His pupils are round and reactive to light and accommodation. Oropharynx is dry. NECK: Supple. LUNGS: With diminished breath sounds at the right lung base. CARDIOVASCULAR: Exam reveals tachycardia. ABDOMEN: Benign. EXTREMITIES: Lower extremities with no edema. LABORATORY DATA Significant for a BUN of 112, creatinine 2.5, white blood cell count 0.9, ANC of 700. ASSESSMENT/PLAN Mr. Acosta is a 76-year-old man with metastatic unn-qipef-hhgi lung cancer adenocarcinoma histology. He was treated with his first cycle of chemotherapy May 16, 2017. He is admitted with toxicity related to the chemotherapy, namely neutropenia. He is fortunately afebrile. He comes in with worsening shortness of breath, worsened renal insufficiency and hypotension. He is undergoing a thoracentesis with some relief of symptoms. He remains tachycardiac. We will continue support with IV fluid hydration gingerly. Neurology will be consulted. I suspect the renal insufficiency is related to the obstruction. He had declined a Hernadez catheter previously. It is tricky to place a Hernadez catheter at this point given that he is neutropenic. Nevertheless, a bladder scan will be performed if significantly full and unable to urinate, a Hernadez catheter will need to be placed. Urology Dr. Barajas will be consulted. Neupogen is initiated for support. Folic acid will continue because of the Alimta. His COPD will be managed by the primary team as he still has this underlying problem as he continues to smoke despite the cancer diagnosis. I will continue his long-acting pain medication of fentanyl 25 mcg patch. We will monitor closely his response. He is stating his pain is 6-7/10 which is an improvement from before. He may be a little sleepy, but we will monitor closely. Breakthrough medication will be monitored. Megace and bowel regimen will be started as well. MD AYLEEN Solis/GRACIE /7:32 PM /9:08 AM
[2017-05-23] MEDS ORDERED: ALTEPLASE RECOMBINANT 2 MG VIAL INTRACATH PRN (10:00)
--- NOTE | 2017-05-23 10:07 | PD.CONS ---
[facility] Service Urology Consult Requested By Dr. Gregorio Reason for Consult Difficulty urinating with elevation in the serum creatinine. Primary Care Physician Unknown Diagnosis: History of Present Illness Consulted to evaluate this pleasant 76-year-old gentleman with history BPH for difficulty urinating. Patient has a history of metastatic lung cancer being managed with chemotherapy and was recently admitted for symptoms of shortness of breath, generalized weakness and diarrhea. During his present consultation the patient complained of difficulty urinating with elevation of the serum creatinine measuring 2.51 thus prompting the urology consult. Patient has an established urologist Dr. Nilay Prieto who is treating the patient for BPH with finasteride. At the time of consultation, the patient reports that his voiding has improved. Laboratory studies from this morning demonstrated improvement of the serum creatinine now measuring 1.61. CT scanning was performed during present consultation consistent with diffuse metastatic lung cancer. The kidneys themselves appear normal without evidence of mass lesions or hydronephrosis. Review of Systems Constitutional: COMPLAINS OF: Fatigue, Change in appetite (diminished) Respiratory: COMPLAINS OF: Shortness of breath Gastrointestinal: COMPLAINS OF: Diarrhea Except as stated in HPI: all other systems reviewed are Neg Past Family Social History Past Medical History BPH Metastatic lung cancer Hypertension Past Surgical History Status post cholecystectomy Status post left knee surgery Reported Medications Refer to EMR Allergies: Coded Allergies: No Known Allergies (Unverified , 05/06/14) Active Ordered Medications Refer to EMR Family History Reviewed and noncontributory Social History care home smoker, Dickson smokes one half pack per day Occasional alcohol use Denies history intravenous drug abuse Physical Exam Vital Signs Date Time Temp Pulse Resp B/P (MAP) Pulse Ox O2 Delivery O2 Flow Rate FiO2 05/23/17 04:45 98.0 113 20 149/71 (97) 95 05/23/17 01:38 98.6 106 18 132/69 (90) 97 05/22/17 23:05 16 05/22/17 22:55 05/22/17 22:23 97.6 119 16 92/56 (68) 94 05/22/17 21:56 109 17 107/55 (72) 98 Nasal Cannula 2.00 05/22/17 21:30 108 15 101/82 (88) 97 Nasal Cannula 2.00 05/22/17 20:33 112 13 98/56 (70) 98 Nasal Cannula 2.00 05/22/17 20:09 115 18 97 2.00 05/22/17 20:08 115 18 115/56 (75) 97 Nasal Cannula 2.00 05/22/17 19:30 96 Nasal Cannula 2.00 05/22/17 18:16 96 Nasal Cannula 2.00 05/22/17 16:00 98.0 120 18 103/54 (70) 96 Nasal Cannula 2.00 05/22/17 15:37 98.0 122 24 135/67 (89) 98 05/22/17 12:49 110 20 98 Nasal Cannula 2.00 05/22/17 12:49 98 Nasal Cannula 2.00 05/22/17 12:49 104 16 98 Nasal Cannula 2.00 05/22/17 12:20 105 16 109/57 (74) 98 Nasal Cannula 2.00 05/22/17 12:20 105 20 109/57 (74) 98 Physical Exam GENERAL: This is a well-nourished, well-developed patient, in no apparent distress. SKIN: No rashes, ecchymoses or lesions. Cool and dry. HEAD: Atraumatic. Normocephalic. No temporal or scalp tenderness. EYES: Pupils equal round and reactive. Extraocular motions intact. No scleral icterus. No injection or drainage. ENT: Nose without bleeding, purulent drainage or septal hematoma. Throat without erythema, tonsillar hypertrophy or exudate. Uvula midline. Airway patent. NECK: Trachea midline. No JVD or lymphadenopathy. Supple, nontender, no meningeal signs. GASTROINTESTINAL: Abdomen soft, non-tender, nondistended. No hepato-splenomegaly , or palpable masses. No guarding. GENITOURINARY: Bladder not distended MUSCULOSKELETAL: Extremities without clubbing, cyanosis, or edema. No joint tenderness, effusion, or edema noted. No calf tenderness. Negative Homans sign bilaterally. NEUROLOGICAL: Awake and alert. Cranial nerves II through XII intact. Motor and sensory grossly within normal limits. Five out of 5 muscle strength in all muscle groups. Normal speech. Lab results reviewed: Yes Laboratory Tests Test 05/22/17 12:42 05/22/17 14:28 White Blood Count 0.9 Red Blood Count 3.29 Hemoglobin 10.3 Hematocrit 30.2 Mean Corpuscular Volume 91.8 Mean Corpuscular Hemoglobin 31.2 Mean Corpuscular Hemoglobin Concent 33.9 Red Cell Distribution Width 12.8 Platelet Count 116 Mean Platelet Volume 8.6 CBC Comment AUTO DIFF Differential Total Cells Counted 100 Neutrophils % (Manual) 69 Band Neutrophils % 7 Lymphocytes % 18 Monocytes % 2 Eosinophils % 4 Neutrophils # (Manual) 0.7 Differential Comment FINAL DIFF MANUAL Toxic Granulation 2+ Platelet Estimate LOW Platelet Morphology Comment NORMAL Red Cell Morphology Comment NORMAL Prothrombin Time 10.7 Prothromb Time International Ratio 1.1 Activated Partial Thromboplast Time 26.1 Blood Urea Nitrogen 112 Creatinine 2.51 Random Glucose 165 Total Protein 5.9 Albumin 2.8 Calcium Level 9.7 Alkaline Phosphatase 51 Aspartate Amino Transf (AST/SGOT) 5 Alanine Aminotransferase (ALT/SGPT) 20 Total Bilirubin 0.3 Sodium Level 137 Potassium Level 4.3 Chloride Level 109 Carbon Dioxide Level 17.8 Anion Gap 10 Estimat Glomerular Filtration Rate 25 B-Type Natriuretic Peptide 45 Lipase 71 Urine Color LIGHT-YELLOW Urine Turbidity CLEAR Urine pH 5.0 Urine Specific [place] 1.010 Urine Protein TRACE Urine Glucose (UA) NEG Urine Ketones NEG Urine Occult Blood NEG Urine Nitrite NEG Urine Bilirubin NEG Urine Urobilinogen LESS THAN 2.0 Urine Leukocyte Esterase NEG Urine RBC LESS THAN 1 Urine WBC 2 Urine Squamous Epithelial Cells <1 Urine Hyaline Casts 3 Urine Mucus FEW Microscopic Urinalysis Comment CULT NOT INDICATED Result Diagram: 05/22/17 1242 05/22/17 1242 Personally reviewed images: Yes Imaging Last Impressions Chest X-Ray 05/22/17 1223 Signed Impressions: Service Date/Time: April 12:41 - CONCLUSION: Increase in size of right pleural effusion and the right lung base consolidation and/or compressive collapse. Nino Brunner MD Thoracentesis Ultrasound 05/22/17 0000 Signed Impressions: Service Date/Time: April 14:56 - CONCLUSION: Uncomplicated ultrasound guided right thoracentesis. Sampling was not requested. Quinn Huang Jr., MD Abdomen/Pelvis CT 05/22/17 0000 Signed Impressions: Service Date/Time: April 13:32 - CONCLUSION: 1. Diffuse metastatic disease to the visualized bony structures, left adrenal gland, and visualized lung parenchyma. Special note is made of destructive lesions involving the T10 and L1 levels that involve the left neural foramen and could be possible source of the left radiculopathy. 2. Large right-sided pleural effusion. 3. Prior cholecystectomy. Quinn Huang Jr., MD Assessment and Plan Assessment and Plan Urologic impression: #1 lower urinary tract symptoms related to BPH #2 improvement in serum creatinine levels since hospitalization Recommendations: #1 resume finasteride 5 mg by mouth daily #2 and Flomax 0.4 mg by mouth daily #3 patient to follow up with his established urologist Dr. Nilay Prieto after hospital discharge as previously scheduled. Jamel Rivera MD May 23, 2017 10:07
--- NOTE | 2017-05-23 10:26 | EKG ---
Date Performed: 05/22/2017 Time Performed: 12:35:01 PTAGE: 76 years EKG: SINUS TACHYCARDIA RIGHT BUNDLE BRANCH BLOCK LEFT ANTERIOR FASCICULAR BLOCK ABNORMAL ECG NO PREVIOUS TRACING DOCTOR: Braden Barr Interpretating Date/Time 05/23/2017 10:24:24
[2017-05-23 10:52] LABS: HEMATOCRIT 28.2 % (39.0-51.0); HEMOGLOBIN 9.7 GM/DL (13.0-17.0); MEAN CELL VOLUME 92.4 FL (80.0-100.0); MEAN CORPUSCULAR HEMOGLOBIN 31.6 PG (27.0-34.0); MEAN CORPUSCULAR HGB CONC 34.2 % (32.0-36.0); MEAN PLATELET VOLUME 9.2 FL (7.0-11.0); PLATELET COUNT 74 TH/MM3 (150-450); RED BLOOD COUNT 3.05 MIL/MM3 (4.50-5.90); WHITE BLOOD COUNT 0.8 TH/MM3 (4.0-11.0)
[2017-05-23] MEDS: HYDROmorphone HCL 2 MG TAB PO PRN (10:52)
[2017-05-23] MEDS: guaiFENesin E.R. 600 MG TAB PO SCH ×2 (10:52→22:56)
[2017-05-23] MEDS: FOLIC ACID 1 MG TAB PO SCH (10:53)
--- NOTE | 2017-05-23 11:14 | HHI.PR ---
Subjective Remarks Follow-up for multiple medical condition was and assessment and plan Patient denied any shortness of breathing. He stated that he feels a lot better but still very weak. Patient complaining about diarrhea and not getting to the restroom quickly. Otherwise he has no other complaints. Objective Vitals Vital Signs Date Time Temp Pulse Resp B/P (MAP) Pulse Ox O2 Delivery O2 Flow Rate FiO2 05/23/17 04:45 98.0 113 20 149/71 (97) 95 05/23/17 01:38 98.6 106 18 132/69 (90) 97 05/22/17 23:05 16 05/22/17 22:55 05/22/17 22:23 97.6 119 16 92/56 (68) 94 05/22/17 21:56 109 17 107/55 (72) 98 Nasal Cannula 2.00 05/22/17 21:30 108 15 101/82 (88) 97 Nasal Cannula 2.00 05/22/17 20:33 112 13 98/56 (70) 98 Nasal Cannula 2.00 05/22/17 20:09 115 18 97 2.00 05/22/17 20:08 115 18 115/56 (75) 97 Nasal Cannula 2.00 05/22/17 19:30 96 Nasal Cannula 2.00 05/22/17 18:16 96 Nasal Cannula 2.00 05/22/17 16:00 98.0 120 18 103/54 (70) 96 Nasal Cannula 2.00 05/22/17 15:37 98.0 122 24 135/67 (89) 98 05/22/17 12:49 110 20 98 Nasal Cannula 2.00 05/22/17 12:49 98 Nasal Cannula 2.00 05/22/17 12:49 104 16 98 Nasal Cannula 2.00 05/22/17 12:20 105 16 109/57 (74) 98 Nasal Cannula 2.00 05/22/17 12:20 105 20 109/57 (74) 98 I/O 05/22/17 05/22/17 05/22/17 05/23/17 05/23/17 05/23/17 07:00 15:00 23:00 07:00 15:00 23:00 Intake Total 1000 ml 50 ml Output Total 550 ml Balance 1000 ml 50 ml -550 ml Intake IV Total 1000 ml 50 ml Output Urine Total 550 ml Result Diagram: 05/22/17 1242 05/22/17 1242 Objective Remarks GENERAL: in NAD CARDIOVASCULAR: Regular rate and rhythm without murmurs, gallops, or rubs. RESPIRATORY: Decreased breath sounds in the right lower area. Otherwise clear to auscultation. Dressing in place on the right side. No accessory muscle use. GASTROINTESTINAL: Abdomen soft, non-tender, nondistended. MUSCULOSKELETAL: No cyanosis, or edema. BACK: Nontender without obvious deformity. No CVA tenderness. Medications and IVs Current Medications Sodium Chloride 1,000 ml @ 1,000 mls/hr Q1H IV Last administered on 05/22/17at 12:58; Start 05/22/17 at 12:23; Stop 05/22/17 at 13:22; Status DC Sodium Chloride (NS Flush) 2 ml UNSCH PRN IV FLUSH FLUSH AFTER USING IV ACCESS ; Start 05/22/17 at 12:30; Stop 05/22/17 at 13:53; Status DC Sodium Chloride (NS Flush) 2 ml UNSCH PRN IV FLUSH FLUSH AFTER USING IV ACCESS ; Start 05/22/17 at 13:45 Sodium Chloride (NS Flush) 2 ml BID IV FLUSH ; Start 05/22/17 at 21:00 Acetaminophen (Tylenol) 650 mg Q4H PRN PO TEMP > 100.4; Start 05/22/17 at 13:45 Ondansetron HCl (Zofran Inj) 4 mg Q6H PRN IVP NAUSEA OR VOMITING; Start at 13:45 Naloxone HCl (Narcan Inj) 0.4 mg UNSCH PRN IV PUSH SEE LABEL COMMENTS; Start at 13:45 Guaifenesin (Mucinex Er) 1,200 mg BID PO Last administered on 05/23/17at 10:52; Start 05/22/17 at 14:30 Dexamethasone (Decadron) 1 mg DAILY PO ; Start 05/23/17 at 09:00; Status Cancel Folic Acid (Folate) 1 mg DAILY PO Last administered on 05/23/17at 10:53; Start 05/23/17 at 09:00 Ascorbic Acid (Vitamin C) 500 mg DAILY PO Last administered on 05/23/17at 10:53 ; Start 05/23/17 at 09:00 Non-Formulary Medication 100 mg DAILY PO ; Start 05/23/17 at 09:00; Stop at 09:00; Status DC Non-Formulary Medication 250 mg DAILY PO ; Start 05/23/17 at 09:00; Stop at 09:00; Status DC Non-Formulary Medication 250 mg DAILY PO ; Start 05/23/17 at 09:00; Status UNV Non-Formulary Medication 50 mcg DAILY PO ; Start 05/23/17 at 09:00; Stop at 09:00; Status DC Beta Carotene (Vitamin A) 25,000 units DAILY PO ; Start 05/23/17 at 09:00 Vitamin E (Vitamin E) 400 units DAILY PO ; Start 05/23/17 at 09:00 Acetaminophen/ Hydrocodone Bitart ([place] 5-325 Mg) 1 tab Q4H PRN PO pain 1-7; Start 05/22/17 at 14:45; Status Future Hold Sodium Chloride 1,000 ml @ 70 mls/hr [id number] IV Last administered on at 18:30; Start 05/22/17 at 15:00 Albumin Human 50 ml @ 60 mls/hr ONCE ONCE IV Last administered on 05/22/17at 17 :22; Start 05/22/17 at 15:15; Stop 05/22/17 at 16:04; Status DC Lidocaine HCl (Xylocaine 1% Inj) 20 ml STK-MED ONCE .ROUTE Last administered on 05/22/17at 15:48; Start 05/22/17 at 15:48; Stop 05/22/17 at 15:49; Status DC Filgrastim (Neupogen Inj) 480 mcg DAILY@14 SQ Last administered on 05/22/17at 19 :07; Start 05/22/17 at 18:00 Acetaminophen/ Hydrocodone Bitart ([place]gs 10-325 Mg) 1 tab Q4H PRN PO 8-10; Start 05/22/17 at 18:45; Status Future Hold Morphine Sulfate (Morphine Inj) 2 mg Q4H PRN IV PUSH PAIN, SEVERE 7-10 ON SCALE ; Start 05/22/17 at 18:45 Hydromorphone HCl (Dilaudid Pf Inj) 1 mg ONCE ONCE IV PUSH Last administered on 05/22/17at 20:23; Start 05/22/17 at 19:45; Stop 05/22/17 at 19:46; Status DC Hydromorphone HCl (Dilaudid Pf Inj) 1 mg UNSCH X1 PRN IV PUSH SEE LABEL COMMENTS; Start 05/22/17 at 19:45; Stop 05/22/17 at 19:46; Status Cancel Hydromorphone HCl (Dilaudid Pf Inj) 1 mg UNSCH X1 PRN IV PUSH SEE LABEL COMMENTS; Start 05/22/17 at 20:15; Stop 05/22/17 at 20:16; Status DC Megestrol Acetate (Megace Liq) 40 mg ACHS PO Last administered on 05/23/17at 06: 01; Start 05/22/17 at 21:00 Hydromorphone HCl (Dilaudid) 2 mg Q4H PRN PO PAIN SCALE 4 TO 7 Last administered on 05/23/17at 10:52; Start 05/22/17 at 19:45 Lactulose (Lactulose Liq) 30 ml DAILY PO ; Start 05/23/17 at 09:00 Pneumococcal Polyvalent Vaccine (Pneumovax-23 Inj) 25 mcg ONCE ONCE IM ; Start 05/23/17 at 09:00; Stop 05/23/17 at 09:01; Status DC Heparin Sodium (Porcine) (Heparin Central Flush) 250 units UNSCH PRN IV FLUSH SEE PROTOCOL TABLE Last administered on 05/23/17at 05:59; Start 05/23/17 at 05:30 Heparin Sodium (Porcine) (Heparin Central Flush) 500 units UNSCH IV FLUSH ; Start 05/23/17 at 05:30 Sodium Chloride (NS Flush) 5 ml UNSCH PRN IV FLUSH FLUSH AFTER USING IV ACCESS ; Start 05/23/17 at 05:30 Alteplase, Recombinant (Cathflo Activase Inj) 2 mg Q2H PRN INTRACATH clotted catheter Last administered on 05/23/17at 10:42; Start 05/23/17 at 10:00 Finasteride (Proscar) 5 mg DAILY PO ; Start 05/23/17 at 11:00 Tamsulosin HCl (Flomax) 0.4 mg DAILY PO ; Start 05/23/17 at 11:00 A/P Assessment and Plan This is a 76-year-old male with 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 Chest x-ray shows right-sided pleural effusion that was reviewed by me. -Status post therapeutic thoracentesis on 05/22 by IR. -Today there is a drastic improvement in his respiratory status and he is denying any shortness of breathing. -Will wean off oxygen as tolerated. Non-small cell lung cancer with metastases to the bone -Dr. Gregorio consulted and following. Pending report. Neutropenia/anemia/mild thrombocytopenia -Status post chemotherapy on Friday -See treatment as above. Hypotension -Review labs. Patient is third spacing with low albumin. Decrease oral intake along with diarrhea. -Improved on IV fluids. Status post albumin given. -Will continue to hold off on antihypertensive medication. Diarrhea -Mostly secondary to chemotherapy. Pending C. difficile PCR. -Reviewed CT scan of the abdomen which shows metastases to the bones, left adrenal gland, and lungs. Acute on chronic pain secondary to metastatic disease -Pain medication adjusted by oncologist. Patient now on PO Dilaudid. Acute on chronic renal failure -Patient was recently taken off of ibuprofen due to worsening renal function. -Most likely secondary to combination of hypotension and ibuprofen use. Not recommend NSAID use. -Still pending labs from today. Urologist was consulted and stated very unlikely due to BPH. Patient was started on Flomax and Proscar. -Continue to trend creatinine. Based on results will determine if urologist needs to be consulted. Hypertension -Patient was initially hypotensive so medication was held. He is now normotensive so we'll continue to hold medication. Failure to thrive -Secondary to cancer and chemotherapy treatment. -On Megace. Dietitian consulted. Tobacco dependence -Patient has decreased amount of cigarettes he is smoking. Smoking cessation. DVT prophylaxis -Chemoprophylaxis held secondary to anticipating thoracentesis. Discussed case with patient's nurse is at the bedside during the interview. Lidia Sanchez MD May 23, 2017 11:14
[2017-05-23 11:20] LABS: CALCIUM 9.1 MG/DL (8.5-10.1); CREATININE 1.61 MG/DL (0.60-1.30)
[2017-05-23] MEDS: UMECLIDINIUM 62.5 MCG/VILANTEROL 25 MCG INHALER INH SCH (12:44)
[2017-05-23] MEDS: TAMSULOSIN HCL 0.4 MG CAP PO SCH (12:53)
[2017-05-23] MEDS: FINASTERIDE 5 MG TAB PO SCH (12:53)
--- NOTE | 2017-05-23 13:06 | PD.ONC.PN ---
Subjective Subjective Remarks Afebrile overnight. Patient's port has been sluggish with drawing blood per nurse. Patient states he is not in pain. Breathing okay. Tired of people asking him questions. Objective Data Date Time Temp Pulse Resp B/P (MAP) Pulse Ox O2 Delivery O2 Flow Rate FiO2 05/23/17 08:00 98.0 112 20 120/63 (82) 100 05/23/17 04:45 98.0 113 20 149/71 (97) 95 05/23/17 01:38 98.6 106 18 132/69 (90) 97 05/22/17 23:05 16 05/22/17 22:55 05/22/17 22:23 97.6 119 16 92/56 (68) 94 05/22/17 21:56 109 17 107/55 (72) 98 Nasal Cannula 2.00 05/22/17 21:30 108 15 101/82 (88) 97 Nasal Cannula 2.00 05/22/17 20:33 112 13 98/56 (70) 98 Nasal Cannula 2.00 05/22/17 20:09 115 18 97 2.00 05/22/17 20:08 115 18 115/56 (75) 97 Nasal Cannula 2.00 05/22/17 19:30 96 Nasal Cannula 2.00 05/22/17 18:16 96 Nasal Cannula 2.00 05/22/17 16:00 98.0 120 18 103/54 (70) 96 Nasal Cannula 2.00 05/22/17 15:37 98.0 122 24 135/67 (89) 98 05/23/17 05/23/17 05/23/17 07:00 15:00 23:00 Output Total 550 ml Balance -550 ml Result Diagram: 05/23/17 0800 05/23/17 0800 Laboratory Results Laboratory Tests Test 05/22/17 14:28 05/23/17 08:00 Urine Color LIGHT-YELLOW Urine Turbidity CLEAR Urine pH 5.0 Urine Specific [place] 1.010 Urine Protein TRACE mg/dL Urine Glucose (UA) NEG mg/dL Urine Ketones NEG mg/dL Urine Occult Blood NEG Urine Nitrite NEG Urine Bilirubin NEG Urine Urobilinogen LESS THAN 2.0 MG/DL Urine Leukocyte Esterase NEG Urine RBC LESS THAN 1 /hpf Urine WBC 2 /hpf Urine Squamous Epithelial Cells <1 /hpf Urine Hyaline Casts 3 /lpf Urine Mucus FEW /lpf Microscopic Urinalysis Comment CULT NOT INDICATED White Blood Count 0.8 TH/MM3 Red Blood Count 3.05 MIL/MM3 Hemoglobin 9.7 GM/DL Hematocrit 28.2 % Mean Corpuscular Volume 92.4 FL Mean Corpuscular Hemoglobin 31.6 PG Mean Corpuscular Hemoglobin Concent 34.2 % Red Cell Distribution Width 13.0 % Platelet Count 74 TH/MM3 Mean Platelet Volume 9.2 FL Blood Urea Nitrogen 101 MG/DL Creatinine 1.61 MG/DL Random Glucose 144 MG/DL Calcium Level 9.1 MG/DL Sodium Level 144 MEQ/L Potassium Level 4.0 MEQ/L Chloride Level 119 MEQ/L Carbon Dioxide Level 15.0 MEQ/L Anion Gap 10 MEQ/L Estimat Glomerular Filtration Rate 42 ML/MIN Administered Medications Medications (Trade) Dose Ordered Sig/Javier Route PRN Reason Start Time Stop Time Status Last Admin Dose Admin Guaifenesin (Mucinex Er) 1,200 mg BID PO 05/22/17 14:30 05/23/17 10:52 Folic Acid (Folate) 1 mg DAILY PO 05/23/17 09:00 05/23/17 10:53 Ascorbic Acid (Vitamin C) 500 mg DAILY PO 05/23/17 09:00 05/23/17 10:53 Sodium Chloride 1,000 ml @ 70 mls/hr [id number] IV 05/22/17 15:00 05/22/17 18:30 Filgrastim (Neupogen Inj) 480 mcg DAILY@14 SQ 05/22/17 18:00 05/22/17 19:07 Megestrol Acetate (Megace Liq) 40 mg ACHS PO 05/22/17 21:00 05/23/17 06:01 Hydromorphone HCl (Dilaudid) 2 mg Q4H PRN PO PAIN SCALE 4 TO 7 05/22/17 19:45 05/23/17 10:52 Heparin Sodium (Porcine) (Heparin Central Flush) 250 units UNSCH PRN IV FLUSH SEE PROTOCOL TABLE 05/23/17 05:30 05/23/17 05:59 Alteplase, Recombinant (Cathflo Activase Inj) 2 mg Q2H PRN INTRACATH clotted catheter 05/23/17 10:00 05/23/17 10:42 Objective Remarks GENERAL: Elderly male, sitting up in chair next to bed, appears fatigued, but otherwise in nad. SKIN: Warm and dry. port in place, left chest wall HEAD: Normocephalic. EYES: No injection or drainage. NECK: Supple, trachea midline. CARDIOVASCULAR: IRR RESPIRATORY: diminished at bases, anterior eldridge with occasional rhonchi. on O2 via NC GASTROINTESTINAL: Abdomen soft, non-tender, nondistended. EXTREMITIES: No cyanosis NEUROLOGICAL: awake, alert, normal speech. able to move extremities. Assessment/Plan Problem List: (1) Neutropenia ICD Codes: D70.9 - Neutropenia, unspecified Status: Acute Plan: --on Neupogen, monitor for fever (2) Lung cancer ICD Codes: C34.90 - Malignant neoplasm of unspecified part of unspecified bronchus or lung Status: Acute Plan: --will plan further treatment outpatient once recovered from current hospitalization. History: -- found to have a large pleural based mass in the medial aspect of the right upper lobe with bony metastatic disease. --CT/PET scan shows evidence of metastatic disease to the left adrenal gland in addition to a right pleural effusion and questionable solitary metastatic lesion to the liver. --Biopsy showed a poorly differentiated non-small cell lung cancer, adenocarcinoma histology. EGFR, ALK, PD-L1 are still pending. --was offered palliative chemotherapy with carboplatin and Alimta on April. Neulasta was requested through his insurance company, but was denied given that the stated risk of neutropenic fever associated with Alimta and carboplatin is only 5%. (3) Pain ICD Codes: R52 - Pain, unspecified Plan: --on TD Fentanyl Pain: --CT abdomen and pelvis showed diffuse mets to the bony structures and a destructive lesion at T10 and 11 that is probably a source of his radiculopathy. other sites are being targeted with radiation. (4) Pleural effusion ICD Codes: J90 - Pleural effusion, not elsewhere classified Status: Acute Plan: --s/p thoracentesis. (5) Renal insufficiency ICD Codes: N28.9 - Disorder of kidney and ureter, unspecified Plan: --improving. Assessment 76y/o male with metastatic NSCLC admitted with chemotherapy induced neutropenia , worsening pleural effusion, worsened renal insufficiency and hypotension. --s/ p thoracentesis. h/o COPD Chronic pain Chronic tobacco use Metastatic [id number] lung cancer adenocarcinoma Histology. Chronic renal insufficiency Chronic anemia Plan 1. PRN cath-tyesha for sluggish port. UPDATE: will consult invasive for evaluation as only 1cc of the cath-tyesha could be aspirated after indwelling in the catheter 2. check CBC today 3. monitor for fever Attending Statement The exam, history, and the medical decision-making described in the above note were completed with the assistance of the mid-level provider. I reviewed and agree with the findings presented. I attest that I had a [id number] encounter with the patient on the same day, and personally performed and documented my assessment and findings in the medical record. Feels tired in AM, still with pain but better with patch. Some sleepiness with patch 25mcg/hr. Still neutropenic. Anticipate pancytopenia and manpreet. Monitor closely for fevers. Urology consulted, state he is able to urinate in urinal. BP better in AM. Hold XRT due to neutropenia. GCSF continue. No transfusion needed for now. Problem Qualifiers (1) Neutropenia: Qualified Codes: D70.9 - Neutropenia, unspecified (2) Lung cancer: Qualified Codes: C34.90 - Malignant neoplasm of unspecified part of unspecified bronchus or lung Rosalinda Milian May 23, 2017 13:05 Tavia Gregorio MD May 23, 2017 22:21
[2017-05-23 13:38] LABS: BANDS 10 % (0-6); LYMPHOCYTES 8 % (9-44); METAMYELOCYTES 2 % (0-1); MONOCYTES 22 % (0-8); POLYS (SEG NEUTROPHILS) 56 % (16-70)
[2017-05-23 13:47] LABS: NEUTROPHIL # MANUAL DIFF 0.5 TH/MM3 (1.8-7.7)
[2017-05-23] MEDS ORDERED: METOPROLOL TARTRATE 25 MG TAB PO SCH (14:45)
[2017-05-23] MEDS ORDERED: IOHEXOL 350 MG/ML 50 ML BTL (for RAD DIAG) OTHER ONE (16:10)
--- NOTE | 2017-05-23 16:46 | RADRPT ---
EXAM DATE/TIME: 05/23/2017 17:18 [facility] COMPARISON: No previous studies available for comparison. INDICATIONS : Patient with history of lung cancer in need of port evaluation. MEDICAL HISTORY : HTN, Non small cell lung cancer metastatic to the bone, Chemotherapy, COPD, Emphysema SURGICAL HISTORY : Port placement, Lung biopsy ENCOUNTER: Initial ACUITY: 1 day PAIN SCORE: 0/10 FLUORO TIME: 0.2 minutes IMAGE SERIES: 1 CONTRAST: 1.) 5 cc Omnipaque (iohexol) 350 PROCEDURE : 1. Access of [id number]. 2. Port patency injection. The risks, benefits and alternatives to the procedure were explained and verbal and written consent w as obtained. The patient was placed supine. The port was prepped in sterile fashion. Full sterile t echnique was used, including cap, mask, sterile gloves and gown, and a large sterile sheet. Hand hyg iene and 2% chlorhexidine prep was utilized per protocol for cutaneous antisepsis with appropriate dr y time for site. The previously placed port was accessed and positive contrast was injected for evaluation. Injection demonstrates fibrin sheath at the catheter tip. The port reservoir and tubing are otherwise intact. Patient reportedly recently had TPA infusion. CONCLUSION: 1. Port catheter and tubing are intact. 2. Port tip projects over the central venous system. There appears to be a persistent fibrin sheath a t the catheter tip despite recent TPA infusion. Derek Davis MD on May 23, 2017 at 16:42 Board Certified Radiologist. This report was verified electronically.
--- NOTE | 2017-05-23 17:08 | MB ---
cc: Nora JOYNER DATE OF CONSULTATION 05/23/17 HISTORY OF PRESENT ILLNESS Mr. Acosta is a 76-year-old white male who came from [place] to stay with his daughter which he had been doing annually for years. He had had some pleurisy prior to traveling down that had been treated in [place], but when he arrived he looked very short of breath and debilitated. She ended up taking him to [facility] emergency room where a CT was done and he had a mass in his right lung. He was subsequently followed up by Dr. Avila who referred him to Dr. Gregorio who had a biopsy done which revealed non-small cell cancer. It was adenocarcinoma. Unfortunately, he has widespread bony metastatic disease and an adrenal lesion as well. He has received several courses of radiation therapy as an outpatient as well as his initial chemotherapy and he presented with increasing shortness of breath to the emergency room on May 22. CT scan revealed cancer and a large right pleural effusion. He was sent to IR from the ER and had 2.5 liters of fluid drained, but no sampling was done. He is feeling much better. Very little pain currently, receiving pain medication. He continues to smoke about a pack per day and smoked all of his adult life. He has been diagnosed with COPD, emphysema previously and was on Anoro. He was placed on one puff of Anoro here in the hospital. No purulent sputum. No hemoptysis. No fever. He is neutropenic with 800 white cells. Oncology has seen him and no antibiotics have been ordered. He has been afebrile. No purulent sputum. PAST MEDICAL HISTORY 1. Hypertension, 2. Left knee arthroscopic 3. Cholecystectomy. 4. History of anemia 5. Renal insufficiency with an elevated creatinine 6. Multiple bony metastases. ALLERGIES None known. MEDICATIONS Reviewed in the EMR. SOCIAL HISTORY He is from [place], comes here to visit his daughter who is at the bedside with him and very supportive. No excessive alcohol use. Smoking as noted. REVIEW OF SYSTEMS Noted above. PHYSICAL EXAMINATION VITAL SIGNS: 98, pulse 110, a little irregular, respirations are 18, sat is 100% on 2 liters. NECK: No adenopathy in the neck or supraclavicular region. CHEST: Some minimal scattered congestion. No wheezing. CARDIAC: Slightly irregular heart rhythm. No harsh murmur. ABDOMEN: Abdomen is obese but soft. EXTREMITIES: No pitting edema. ASSESSMENT AND PLAN Mr. Acosta presented with increasing shortness of breath, large right pleural effusion. 2.5 liters were drained and his followup chest x-ray looked much better. I have ordered aerosol therapy twice a day in addition to his Anoro to help clear some of this congestion. Undoubtedly, he has underlying COPD and unfortunately continues to smoke, which he knows he should quit. The patient was seen and evaluated prior to this admission by Dr. Avila. He has a follow up with him on May 30 and I have encouraged him to keep that. I will be available as needed in the hospital if further problems arise, but he is markedly improved after the drainage of the pleural effusion. R. MD PHYLLIS Vail/ /12:55 PM /4:51 PM
[2017-05-23] MEDS ORDERED: DILTIAZEM HCL 25 MG/5 ML VIAL IV PUSH ONE (17:45)
[2017-05-23] MEDS ORDERED: ADENOSINE IV SOLN 3 MG/ML 2 ML VIAL IV PUSH ONE (17:45)
[2017-05-23] MEDS ORDERED: AMIODARONE HCL 150 MG/3 ML VIAL ONE (17:55)
[2017-05-23] MEDS: DILTIAZEM INJ 125 MG in SODIUM CHLORIDE 0.9% INJ 100 ML IV PRN (18:15)
--- NOTE | 2017-05-23 18:29 | PD.CONS ---
[facility] Service Critical Care Medicine Consult Requested By Dr. Sanchez Reason for Consult unstable atrial fibrillation with rapid ventricular response Primary Care Physician Unknown History of Present Illness I was called to the bedside emergently by Dr. Sanchez for evaluation of unstable narrow complex tachycardia. In brief, this is a 76yM with metastatic NSCLC undergoing palliative chemo/radiation who was admitted for shortness of breath and malignant pleural effusions. Today with ambulation he went into afib (his lopressor was on hold for admission hypotension). tonight his heart rate became uncontrolled in the 180s with associated hypotension with sbp < 90. I came immediately to the bedside and evaluated the patient. he denied any chest pain or shortness of breath. he was hypotensive and did have a narrow complex tachycardia with rate in the 180s. I gave 6mg adenosine iv x 1 which slowed his rate to the 50s and was clearly atrial fibrillation by tele strip. however, the rate returned to the 180s. While I remained at bedside, I titrated diltiazem in divided doses for a total of 35mg iv. At this point his heart rate slowed to the 110s and the patient stated his subjective fatigue had improved. electrolytes from this morning are wnl. I have ordered 2gm mgso4 and amio load and bolus as well as diltiazem drip. we have restarted his home lopressor and increased its dose to 25mg po q8hr. Review of Systems ROS Limitations: Clinical Condition ROS due to the acute nature of his complaint, a complete ROS is unobtainable. brief pertinent ROS negative for chest pain, SOB. + fatigue. Past Family Social History Allergies: Coded Allergies: No Known Allergies (Unverified , 05/06/14) Past Medical History Non-small cell lung cancer with metastases to the bone Hypertension Tobacco dependence Past Surgical History Left knee arthroscopically Cholecystectomy Biopsy of the lungs Reported Medications Pomegranate (Pomegranate Fruit Extract) 250 Mg Capsule 250 Mg PO DAILY Resveratrol 250 Mg Cap 250 Mg PO DAILY Coq-10 Tr (Coenzyme Q10 (Ubidecarenone)) 100 Mg Cap 100 Mg PO DAILY Oceanic Selenium (Selenium) 50 Mcg Tab 50 Mcg PO DAILY Vitamin E (Vitamin E Acid Succinate) 400 Unit Tablet 400 Units PO DAILY Vitamin C (Ascorbic Acid) 250 Mg Tab 500 Mg PO DAILY Vitamin A 25,000 Unit Capsule 25,000 Units PO DAILY Imodium A-D (Loperamide HCl) 2 Mg Capsule 2 Mg PO DIRECTED PRN One capsule after each loose stool. Not to exceed 4 tablets per day. Lactulose Liq (Lactulose) 10 Gm/15 Ml Soln 15 Ml PO Q6H PRN Prochlorperazine Maleate 10 Mg Tab 10 Mg PO HS Zofran (Ondansetron HCl) 8 Mg Tab 8 Mg PO TID Orestes (Hydrocodone-Acetaminophen) 7.5-325 mg Tab 1 Tab PO Q4-6H PRN Duragesic Patch 72 HR (Fentanyl) 12 Mcg/Hr Patch 24 Mcg T-DERMAL Q72H Remove old patch when new one placed. Dexamethasone 1 Mg Tab 1 Mg PO DIRECTED Take 1 tablet (1mg) 2 days before & day after Chemo Folic Acid 1 Mg Tablet 1 Mg PO DAILY Spironolactone 50 Mg Tab 50 Mg PO DAILY Finasteride 5 Mg Tab 5 Mg PO DAILY Do not crush. Amlodipine (Amlodipine Besylate) 5 Mg Tab 5 Mg PO DAILY Metoprolol Tartrate 50 Mg Tab 50 Mg PO DAILY Lisinopril 40 Mg Tab 40 Mg PO DAILY Anoro Ellipta Inh (Umeclidinium/Vilanterol) 62.5-25 Mcg/Act Aero 1 Puff INH DAILY Active Ordered Medications See MAR Family History unobtainable secondary to the clinical condition of the patient. unlikely to be contributory to his acute illness. Social History Smokes one half pack per day of tobacco Occasional alcohol use Denies any illicit drug use. Physical Exam Vital Signs Vital Signs Date Time Temp Pulse Resp B/P (MAP) Pulse Ox O2 Delivery O2 Flow Rate FiO2 05/23/17 15:31 115/58 (77) 05/23/17 15:27 98.7 91 20 92/52 (65) 98 05/23/17 12:00 97.9 122 18 136/66 (89) 96 05/23/17 08:00 98.0 112 20 120/63 (82) 100 05/23/17 04:45 98.0 113 20 149/71 (97) 95 05/23/17 01:38 98.6 106 18 132/69 (90) 97 05/22/17 23:05 16 05/22/17 22:55 05/22/17 22:23 97.6 119 16 92/56 (68) 94 05/22/17 21:56 109 17 107/55 (72) 98 Nasal Cannula 2.00 05/22/17 21:30 108 15 101/82 (88) 97 Nasal Cannula 2.00 05/22/17 20:33 112 13 98/56 (70) 98 Nasal Cannula 2.00 05/22/17 20:09 115 18 97 2.00 05/22/17 20:08 115 18 115/56 (75) 97 Nasal Cannula 2.00 05/22/17 19:30 96 Nasal Cannula 2.00 Physical Exam on exam on my evaluation patient is in acute distress. HR 180s. SBP < 90. narrow complex tachycardia on monitor. after 6mg adenosine, clearly afib on monitor, transient HR 50s, then back to 180s. after 35mg diltiazem (divided doses), HR 110s. patients distress improving. Laboratory Laboratory Tests Test 05/23/17 08:00 05/23/17 15:30 White Blood Count 0.8 Red Blood Count 3.05 Hemoglobin 9.7 Hematocrit 28.2 Mean Corpuscular Volume 92.4 Mean Corpuscular Hemoglobin 31.6 Mean Corpuscular Hemoglobin Concent 34.2 Red Cell Distribution Width 13.0 Platelet Count 74 Mean Platelet Volume 9.2 Differential Total Cells Counted 50 Neutrophils % (Manual) 56 Band Neutrophils % 10 Lymphocytes % 8 Monocytes % 22 Eosinophils % 2 Neutrophils # (Manual) 0.5 Metamyelocytes 2 Differential Comment FINAL DIFF MANUAL Platelet Estimate LOW Platelet Morphology Comment NORMAL Red Cell Morphology Comment NORMAL Blood Urea Nitrogen 101 Creatinine 1.61 Random Glucose 144 Calcium Level 9.1 Sodium Level 144 Potassium Level 4.0 Chloride Level 119 Carbon Dioxide Level 15.0 Anion Gap 10 Estimat Glomerular Filtration Rate 42 Result Diagram: 05/23/17 0800 05/23/17 0800 Assessment and Plan Assessment and Plan Assessment: 76yM with history of terminal stage IV NSCLC undergoing palliative chemoradiation with hemodynamically unstable atrial fibrillation with rapid venticular response. most likely secondary to catecholamine surge from ambulation. replace electrolytes. restart held beta blockers. will give amio and keep on dilt drip overnight to prevent rebound RVR. Will remain in [facility] now that he has stabilized. Active Problems: Hemodynamically Unstable Atrial Fibrillation with Rapid Ventricular Response Plan: - 2gm mgso4 - amio load and bolus x 24h - diltiazem drip - increase lopressor to 25mg po q8h - AM BMP, mg, phos - discussed with Dr. Sanchez, will keep in [facility] overnight and return to [facility] service AM 05/24. Critical care time: the patient was critically ill with hemodynamically unstable narrow complex tachycardia. I spent in excess of 33 minutes in the evaluation, care, and management of this patient while he was critically ill. this time is exclusive of procedures. Discussed Condition With Victorino Weinstein MD May 23, 2017 18:29
[2017-05-23] MEDS ORDERED: AMIODARONE INJ 150 MG in DEXTROSE 5% IN WATER 100ML INJ 100 ML IV ONE ×2 (18:45)
[2017-05-23] MEDS ORDERED: DILTIAZEM HCL 25 MG/5 ML VIAL IV ONE ×3 (18:45)
[2017-05-23] MEDS ORDERED: DIGOXIN 0.5 MG/2 ML VIAL ONE (18:58)
[2017-05-23] MEDS: MAGNESIUM SULFATE 1 GM PREMIX 100 ML IV SCH ×2 (19:08→20:17)
[2017-05-23] MEDS: FILGRASTIM 480 MCG/1.6 ML VIAL SQ SCH (19:11)
[2017-05-23] MEDS ORDERED: DIGOXIN 0.5 MG/2 ML VIAL IV PUSH ONE (19:15)
[2017-05-23] MEDS: AMIODARONE INJ 450 MG in SODIUM CHLOR 0.9% (EXCEL) INJ 241 ML IV PRN (19:25)
[2017-05-23] MEDS: RESP: ALBUTEROL 2.5 MG/IPRATROPIUM 0.5 MG NEB (SCH) INH (21:08)
[2017-05-23] MEDS: SODIUM CHLOR 0.9% 1000 ML INJ 1,000 ML IV SCH (21:48)
[2017-05-23] MEDS: METOPROLOL TARTRATE 25 MG TAB PO SCH (22:56)
[2017-05-24] VITALS (17 sets, daily range): BP systolic 104–127; BP diastolic 54–70; PULSE 80–103; RESP 14–20; TEMP 97.3–99.1; O2SAT 95–100
[2017-05-24] MEDS: DILTIAZEM INJ 125 MG in SODIUM CHLORIDE 0.9% INJ 100 ML IV PRN (02:19)
[2017-05-24] MEDS: AMIODARONE INJ 450 MG in SODIUM CHLOR 0.9% (EXCEL) INJ 241 ML IV PRN ×2 (02:48→18:01)
[2017-05-24] MEDS: METOPROLOL TARTRATE 25 MG TAB PO SCH ×3 (06:14→21:24)
[2017-05-24 06:27] LABS: HEMOGLOBIN 9.6 GM/DL (13.0-17.0); MEAN CELL VOLUME 91.3 FL (80.0-100.0); MEAN CORPUSCULAR HEMOGLOBIN 31.2 PG (27.0-34.0); MEAN CORPUSCULAR HGB CONC 34.2 % (32.0-36.0); MEAN PLATELET VOLUME 9.1 FL (7.0-11.0); PLATELET COUNT 50 TH/MM3 (150-450); RED BLOOD COUNT 3.07 MIL/MM3 (4.50-5.90); RED CELL DISTRIBUTION WIDTH 12.9 % (11.6-17.2); WHITE BLOOD COUNT 0.5 TH/MM3 (4.0-11.0)
[2017-05-24] MEDS ORDERED: CALCIUM CARBONATE 500 MG CHEWABLE TAB CHEW ONE (06:45)
[2017-05-24 07:04] LABS: BICARBONATE 17.2 MEQ/L (21.0-32.0); CALCIUM 8.5 MG/DL (8.5-10.1); CREATININE 1.13 MG/DL (0.60-1.30); MAGNESIUM 2.7 MG/DL (1.5-2.5); PHOSPHORUS 3.5 MG/DL (2.5-4.9)
[2017-05-24 07:15] LABS: INTERNATIONAL NORMALIZED RATIO 1.1 RATIO; PROTHROMBIN TIME - PATIENT 10.8 SEC (9.8-11.6)
[2017-05-24] MEDS: RESP: ALBUTEROL 2.5 MG/IPRATROPIUM 0.5 MG NEB (SCH) INH ×2 (08:18→20:28)
[2017-05-24 08:19] LABS: BANDS 2 % (0-6); LYMPHOCYTES 11 % (9-44); MONOCYTES 5 % (0-8); POLYS (SEG NEUTROPHILS) 78 % (16-70)
[2017-05-24 08:20] LABS: NEUTROPHIL # MANUAL DIFF 0.4 TH/MM3 (1.8-7.7); ROULEAUX PRESENT (NORMAL)
[2017-05-24 08:21] LABS: HYPERSEGMENTED POLYS 1+ (NORMAL)
[2017-05-24 08:24] LABS: TOXIC GRANULATION 1+ (NORMAL)
[2017-05-24] MEDS ORDERED: POTASSIUM CHLORIDE 20 MEQ CONTROLLED RELEASE TAB PO ONE (08:30)
--- NOTE | 2017-05-24 09:54 | PD.ONC.PN ---
Subjective Subjective Remarks Afebrile Patient reports right-sided abdominal pain that started last night Has had some diarrhea Asking for ice chips Objective Data Date Time Temp Pulse Resp B/P (MAP) Pulse Ox O2 Delivery O2 Flow Rate FiO2 05/24/17 08:21 100 05/24/17 06:00 96 05/24/17 05:00 90 05/24/17 04:00 90 05/24/17 03:00 83 05/24/17 03:00 84 18 110/54 (72) 96 05/24/17 03:00 96 Room Air 05/24/17 02:48 84 117/57 05/24/17 02:33 88 117/57 05/24/17 02:19 90 118/60 05/24/17 02:00 98 05/24/17 01:30 87 122/64 05/24/17 01:30 87 122/64 05/24/17 01:00 82 05/24/17 00:00 83 18 106/55 (72) 96 05/24/17 00:00 84 05/24/17 00:00 85 106/55 05/24/17 00:00 96 Room Air 05/23/17 23:00 161 05/23/17 22:00 130 05/23/17 21:09 97 05/23/17 21:00 144 05/23/17 21:00 162 93/48 05/23/17 20:05 98.5 165 20 104/56 (72) 99 05/23/17 20:05 99 Room Air 05/23/17 20:00 140 05/23/17 19:30 154 20 96/55 (69) 05/23/17 19:25 168 103/52 05/23/17 19:25 164 96/55 05/23/17 19:20 176 20 94/54 (67) 98 18 19:20 174 94/54 05/23/17 19:20 154 96/55 05/23/17 19:15 175 18 87/47 (60) 99 05/23/17 19:15 175 87/47 05/23/17 19:00 180 05/23/17 19:00 18 69/50 (56) 96 05/23/17 19:00 169 69/50 05/23/17 18:30 174 101/54 05/23/17 18:16 157 20 117/74 (88) 97 05/23/17 18:15 147 117/74 05/23/17 18:05 172 24 122/70 (87) 96 05/23/17 18:00 176 121/68 (85) 05/23/17 17:55 175 22 70/50 (57) 97 05/23/17 17:54 180 18 67/43 (51) 95 05/23/17 17:20 100 Nasal Cannula 2.00 05/23/17 16:00 103 05/23/17 15:31 115/58 (77) 05/23/17 15:27 98.7 91 20 92/52 (65) 98 05/23/17 12:00 97.9 122 18 136/66 (89) 96 05/23/17 12:00 114 05/24/17 05/24/17 05/24/17 07:00 15:00 23:00 Intake Total 970 ml Balance 970 ml Result Diagram: 05/24/17 0405 05/24/17 0405 Laboratory Results Laboratory Tests Test 05/23/17 15:30 05/24/17 04:05 Stool C. difficile Toxin (PCR) NEGATIVE Stl C. difficile Toxin Epiderm 027 PRESUMPTIVE NEGATIVE White Blood Count 0.5 TH/MM3 Red Blood Count 3.07 MIL/MM3 Hemoglobin 9.6 GM/DL Hematocrit 28.0 % Mean Corpuscular Volume 91.3 FL Mean Corpuscular Hemoglobin 31.2 PG Mean Corpuscular Hemoglobin Concent 34.2 % Red Cell Distribution Width 12.9 % Platelet Count 50 TH/MM3 Mean Platelet Volume 9.1 FL CBC Comment AUTO DIFF Differential Total Cells Counted 100 Neutrophils % (Manual) 78 % Band Neutrophils % 2 % Lymphocytes % 11 % Monocytes % 5 % Eosinophils % 4 % Neutrophils # (Manual) 0.4 TH/MM3 Differential Comment FINAL DIFF MANUAL Hypersegmented Polys 1+ Toxic Granulation 1+ Platelet Estimate LOW Platelet Morphology Comment NORMAL Rouleau PRESENT Prothrombin Time 10.8 SEC Prothromb Time International Ratio 1.1 RATIO Activated Partial Thromboplast Time 26.2 SEC Fibrinogen 339 mg/dL Blood Urea Nitrogen 72 MG/DL Creatinine 1.13 MG/DL Random Glucose 170 MG/DL Calcium Level 8.5 MG/DL Phosphorus Level 3.5 MG/DL Magnesium Level 2.7 MG/DL Sodium Level 147 MEQ/L Potassium Level 3.3 MEQ/L Chloride Level 121 MEQ/L Carbon Dioxide Level 17.2 MEQ/L Anion Gap 9 MEQ/L Estimat Glomerular Filtration Rate 63 ML/MIN Administered Medications Medications (Trade) Dose Ordered Sig/Javier Route PRN Reason Start Time Stop Time Status Last Admin Dose Admin Ondansetron HCl (Zofran Inj) 4 mg Q6H PRN IVP NAUSEA OR VOMITING 05/22/17 13:45 05/24/17 02:19 Guaifenesin (Mucinex Er) 1,200 mg BID PO 05/22/17 14:30 05/23/17 22:56 Folic Acid (Folate) 1 mg DAILY PO 05/23/17 09:00 05/23/17 10:53 Sodium Chloride 1,000 ml @ 70 mls/hr [id number] IV 05/22/17 15:00 05/23/17 21:48 Filgrastim (Neupogen Inj) 480 mcg DAILY@14 SQ 05/22/17 18:00 05/23/17 19:11 Hydromorphone HCl (Dilaudid) 2 mg Q4H PRN PO PAIN SCALE 4 TO 7 05/22/17 19:45 05/23/17 10:52 Heparin Sodium (Porcine) (Heparin Central Flush) 250 units UNSCH PRN IV FLUSH SEE PROTOCOL TABLE 05/23/17 05:30 05/23/17 05:59 Alteplase, Recombinant (Cathflo Activase Inj) 2 mg Q2H PRN INTRACATH clotted catheter 05/23/17 10:00 05/23/17 10:42 Finasteride (Proscar) 5 mg DAILY PO 05/23/17 11:00 05/23/17 12:53 Tamsulosin HCl (Flomax) 0.4 mg DAILY PO 05/23/17 11:00 05/23/17 12:53 Albuterol/ Ipratropium (Duoneb Neb) 1 ampule BID NEB INH 05/23/17 13:00 05/24/17 08:18 Diltiazem HCl 125 mg/Sodium Chloride 125 ml @ 5 mls/hr TITRATE PRN IV Tachycardia 05/23/17 18:30 05/24/17 02:19 Metoprolol Tartrate (Lopressor) 25 mg Q8HR PO 05/23/17 22:00 05/24/17 06:14 Amiodarone HCl 450 mg/Sodium Chloride 250 ml @ 33.33 mls/ hr Q7H31M PRN IV Per Protocol 05/23/17 19:00 05/24/17 19:00 05/24/17 02:48 Objective Remarks GENERAL: Elderly male, sitting up in bed, asleep on approach. He awakens easily and reports right-sided abdominal pain SKIN: Warm and dry. Port in place, left chest wall HEAD: Normocephalic. EYES: No injection or drainage. NECK: Supple, trachea midline. CARDIOVASCULAR: IRR RESPIRATORY: Occasional rhonchi anteriorly. GASTROINTESTINAL: Abdomen somewhat distended. Tender to palpation. EXTREMITIES: No cyanosis NEUROLOGICAL: Awake, alert, normal speech. Moving all extremities. Assessment/Plan Assessment 76y/o male with metastatic NSCLC admitted with chemotherapy induced neutropenia , worsening pleural effusion, worsened renal insufficiency and hypotension. --s/ p thoracentesis. h/o COPD Chronic pain Chronic tobacco use Metastatic [id number] lung cancer adenocarcinoma Histology. Chronic renal insufficiency Chronic anemia Plan 1. Patient had port evaluated yesterday in IR; noted to be a fibrin sheath at the tip. May need to change this out once patient more stabilized prior to resuming chemotherapy. 2. Continue Neupogen 3. Patient reportedly went into A. fib with RVR overnight; cardiology has been consulted. 4. Continue to monitor cytopenias that are due to recent chemotherapy and transfuse as needed Attending Statement The exam, history, and the medical decision-making described in the above note were completed with the assistance of the mid-level provider. I reviewed and agree with the findings presented. I attest that I had a [id number] encounter with the patient on the same day, and personally performed and documented my assessment and findings in the medical record. remains weak and tired. has significant cytopenias from carbo and alimta. currently in sinus rhythm. At this point little else to do and await recovery of counts and will need close monitoring. no need for antibiotics at present. Leslie Nowak May 24, 2017 09:54 Andrés Parra MD May 24, 2017 17:19
[2017-05-24] MEDS: HYDROmorphone HCL 2 MG TAB PO PRN (10:08)
[2017-05-24] MEDS: FOLIC ACID 1 MG TAB PO SCH (10:09)
[2017-05-24] MEDS: guaiFENesin E.R. 600 MG TAB PO SCH ×2 (10:09→21:24)
[2017-05-24] MEDS: FINASTERIDE 5 MG TAB PO SCH (10:09)
[2017-05-24] MEDS: TAMSULOSIN HCL 0.4 MG CAP PO SCH (10:09)
[2017-05-24] MEDS: MEGESTROL ACETATE SUSP 400 MG/10 ML CUP PO SCH (10:10)
[2017-05-24] MEDS: UMECLIDINIUM 62.5 MCG/VILANTEROL 25 MCG INHALER INH SCH (10:21)
--- NOTE | 2017-05-24 11:49 | HHI.PR ---
Subjective Remarks Follow-up respiratory failure secondary to pleural effusion and atrial ablation with RVR Patient denies any shortness of breathing, chest pain, palpitation, lightheadedness or dizziness. Complaining of abdominal pain. Patient is a poor story and could not come anywhere. On abdominal exam pain is more in the epigastric area. Patient continues to have diarrhea. Denies any nausea or vomiting. Pain occurred today this morning. Patient's son at the bedside and stated that is more in the epigastric area. He stated that patient's nurse Vidya stated patient was positive for flu. I was not aware of that and I checked the EMR system flu was not obtained. Will check for flu since patient has GI symptoms. Objective Vitals Vital Signs Date Time Temp Pulse Resp B/P (MAP) Pulse Ox O2 Delivery O2 Flow Rate FiO2 05/24/17 10:02 98.3 103 16 127/70 (89) 95 05/24/17 08:21 100 05/24/17 06:00 96 05/24/17 05:00 90 05/24/17 04:00 90 05/24/17 03:00 83 05/24/17 03:00 84 18 110/54 (72) 96 05/24/17 03:00 96 Room Air 05/24/17 02:48 84 117/57 05/24/17 02:33 88 117/57 05/24/17 02:19 90 118/60 05/24/17 02:00 98 05/24/17 01:30 87 122/64 05/24/17 01:30 87 122/64 05/24/17 01:00 82 05/24/17 00:00 83 18 106/55 (72) 96 05/24/17 00:00 84 05/24/17 00:00 85 106/55 05/24/17 00:00 96 Room Air 05/23/17 23:00 161 05/23/17 22:00 130 05/23/17 21:09 97 05/23/17 21:00 144 05/23/17 21:00 162 93/48 05/23/17 20:05 98.5 165 20 104/56 (72) 99 05/23/17 20:05 99 Room Air 05/23/17 20:00 140 05/23/17 19:30 154 20 96/55 (69) 05/23/17 19:25 168 103/52 05/23/17 19:25 164 96/55 05/23/17 19:20 176 20 94/54 (67) 98 05/23/17 19:20 174 94/54 05/23/17 19:20 154 96/55 05/23/17 19:15 175 18 87/47 (60) 99 05/23/17 19:15 175 87/47 05/23/17 19:00 180 05/23/17 19:00 18 69/50 (56) 96 05/23/17 19:00 169 69/50 05/23/17 18:30 174 101/54 05/23/17 18:16 157 20 117/74 (88) 97 05/23/17 18:15 147 117/74 05/23/17 18:05 172 24 122/70 (87) 96 05/23/17 18:00 176 121/68 (85) 05/23/17 17:55 175 22 70/50 (57) 97 05/23/17 17:54 180 18 67/43 (51) 95 05/23/17 17:20 100 Nasal Cannula 2.00 05/23/17 16:00 103 05/23/17 15:31 115/58 (77) 05/23/17 15:27 98.7 91 20 92/52 (65) 98 05/23/17 12:00 97.9 122 18 136/66 (89) 96 05/23/17 12:00 114 I/O 05/23/17 05/23/17 05/23/17 05/24/17 05/24/17 05/24/17 07:00 15:00 23:00 07:00 15:00 23:00 Intake Total 240 ml 200 ml 970 ml Output Total 550 ml 1100 ml Balance -550 ml -860 ml 200 ml 970 ml Intake Oral 240 ml 720 ml IV Total 200 ml 250 ml Output Urine Total 550 ml 1100 ml # Voids 2 Result Diagram: 05/24/1740405/24/17404 Objective Remarks GENERAL: in NAD CARDIOVASCULAR: Regular rate and rhythm without murmurs, gallops, or rubs. RESPIRATORY: Decreased breath sounds in the right lower area. Otherwise clear to auscultation. Dressing in place on the right side. No accessory muscle use. GASTROINTESTINAL: Abdomen soft,+ TTP in epigastric area, nondistended. Negative for any peritoneal signs. MUSCULOSKELETAL: No cyanosis, or edema. BACK: Nontender without obvious deformity. No CVA tenderness. Medications and IVs Current Medications Sodium Chloride 1,000 ml @ 1,000 mls/hr Q1H IV Last administered on 05/22/17at 12:58; Start 05/22/17 at 12:23; Stop 05/22/17 at 13:22; Status DC Sodium Chloride (NS Flush) 2 ml UNSCH PRN IV FLUSH FLUSH AFTER USING IV ACCESS ; Start 05/22/17 at 12:30; Stop 05/22/17 at 13:53; Status DC Sodium Chloride (NS Flush) 2 ml UNSCH PRN IV FLUSH FLUSH AFTER USING IV ACCESS ; Start 05/22/17 at 13:45 Sodium Chloride (NS Flush) 2 ml BID IV FLUSH ; Start 05/22/17 at 21:00 Acetaminophen (Tylenol) 650 mg Q4H PRN PO TEMP > 100.4; Start 05/22/17 at 13:45 Ondansetron HCl (Zofran Inj) 4 mg Q6H PRN IVP NAUSEA OR VOMITING Last administered on 05/24/17at 02:19; Start 05/22/17 at 13:45 Naloxone HCl (Narcan Inj) 0.4 mg UNSCH PRN IV PUSH SEE LABEL COMMENTS; Start at 13:45 Guaifenesin (Mucinex Er) 1,200 mg BID PO Last administered on 05/24/17at 10:09; Start 05/22/17 at 14:30 Dexamethasone (Decadron) 1 mg DAILY PO ; Start 05/23/17 at 09:00; Status Cancel Folic Acid (Folate) 1 mg DAILY PO Last administered on 05/24/17at 10:09; Start 05/23/17 at 09:00 Ascorbic Acid (Vitamin C) 500 mg DAILY PO ; Start 05/23/17 at 09:00; Stop at 13:17; Status DC Non-Formulary Medication 100 mg DAILY PO ; Start 05/23/17 at 09:00; Stop at 09:00; Status DC Non-Formulary Medication 250 mg DAILY PO ; Start 05/23/17 at 09:00; Stop at 09:00; Status DC Non-Formulary Medication 250 mg DAILY PO ; Start 05/23/17 at 09:00; Status UNV Non-Formulary Medication 50 mcg DAILY PO ; Start 05/23/17 at 09:00; Stop at 09:00; Status DC Beta Carotene (Vitamin A) 25,000 units DAILY PO ; Start 05/23/17 at 09:00; Stop 05/23/17 at 13:17; Status DC Vitamin E (Vitamin E) 400 units DAILY PO ; Start 05/23/17 at 09:00; Stop at 13:17; Status DC Acetaminophen/ Hydrocodone Bitart ([place] 5-325 Mg) 1 tab Q4H PRN PO pain 1-7; Start 05/22/17 at 14:45; Status Future Hold Sodium Chloride 1,000 ml @ 70 mls/hr [id number] IV Last administered on at 21:48; Start 05/22/17 at 15:00 Albumin Human 50 ml @ 60 mls/hr ONCE ONCE IV Last administered on 05/22/17at 17 :22; Start 05/22/17 at 15:15; Stop 05/22/17 at 16:04; Status DC Lidocaine HCl (Xylocaine 1% Inj) 20 ml STK-MED ONCE .ROUTE Last administered on 05/22/17at 15:48; Start 05/22/17 at 15:48; Stop 05/22/17 at 15:49; Status DC Filgrastim (Neupogen Inj) 480 mcg DAILY@14 SQ Last administered on 05/23/17at 19 :11; Start 05/22/17 at 18:00 Acetaminophen/ Hydrocodone Bitart ([place] 10-325 Mg) 1 tab Q4H PRN PO 8-10; Start 05/22/17 at 18:45; Status Future Hold Morphine Sulfate (Morphine Inj) 2 mg Q4H PRN IV PUSH PAIN, SEVERE 7-10 ON SCALE ; Start 05/22/17 at 18:45 Hydromorphone HCl (Dilaudid Pf Inj) 1 mg ONCE ONCE IV PUSH Last administered on 05/22/17at 20:23; Start 05/22/17 at 19:45; Stop 05/22/17 at 19:46; Status DC Hydromorphone HCl (Dilaudid Pf Inj) 1 mg UNSCH X1 PRN IV PUSH SEE LABEL COMMENTS; Start 05/22/17 at 19:45; Stop 05/22/17 at 19:46; Status Cancel Hydromorphone HCl (Dilaudid Pf Inj) 1 mg UNSCH X1 PRN IV PUSH SEE LABEL COMMENTS; Start 05/22/17 at 20:15; Stop 05/22/17 at 20:16; Status DC Megestrol Acetate (Megace Liq) 40 mg ACHS PO Last administered on 05/23/17at 12: 45; Start 05/22/17 at 21:00; Stop 05/23/17 at 15:49; Status DC Hydromorphone HCl (Dilaudid) 2 mg Q4H PRN PO PAIN SCALE 4 TO 7 Last administered on 05/24/17at 10:08; Start 05/22/17 at 19:45 Lactulose (Lactulose Liq) 30 ml DAILY PO ; Start 05/23/17 at 09:00; Stop at 13:17; Status DC Pneumococcal Polyvalent Vaccine (Pneumovax-23 Inj) 25 mcg ONCE ONCE IM ; Start 05/23/17 at 09:00; Stop 05/23/17 at 09:01; Status DC Heparin Sodium (Porcine) (Heparin Central Flush) 250 units UNSCH PRN IV FLUSH SEE PROTOCOL TABLE Last administered on 05/23/17at 05:59; Start 05/23/17 at 05:30 Heparin Sodium (Porcine) (Heparin Central Flush) 500 units UNSCH IV FLUSH ; Start 05/23/17 at 05:30 Sodium Chloride (NS Flush) 5 ml UNSCH PRN IV FLUSH FLUSH AFTER USING IV ACCESS ; Start 05/23/17 at 05:30 Alteplase, Recombinant (Cathflo Activase Inj) 2 mg Q2H PRN INTRACATH clotted catheter Last administered on 05/23/17at 10:42; Start 05/23/17 at 10:00 Finasteride (Proscar) 5 mg DAILY PO Last administered on 05/24/17at 10:09; Start 05/23/17 at 11:00 Tamsulosin HCl (Flomax) 0.4 mg DAILY PO Last administered on 05/24/17at 10:09; Start 05/23/17 at 11:00 Albuterol/ Ipratropium (Duoneb Neb) 1 ampule BID NEB INH Last administered on 05/24/17at 08:18; Start 05/23/17 at 13:00 Albuterol/ Ipratropium (Duoneb Neb) 1 ampule Q6HR NEB PRN INH sob; Start at 13:00 Metoprolol Tartrate (Lopressor) 25 mg Q12HR PO Last administered on 05/23/17at 15:20; Start 05/23/17 at 14:45; Stop 05/23/17 at 18:19; Status DC Megestrol Acetate (Megace Liq) 400 mg DAILY PO Last administered on 05/24/17at 10:10; Start 05/24/17 at 09:00 Heparin Sodium (Porcine) (*HEPARIN CENTRAL FLUSH PERIprocedural ONLY) 500 units STK-MED ONCE IV FLUSH Last administered on 05/23/17at 16:10; Start 05/23/17 at 16:24; Stop 05/23/17 at 16:25; Status DC Iohexol (Omnipaque 350 Inj) 5 ml STK-MED ONCE OTHER Last administered on at 16:10; Start 05/23/17 at 16:10; Stop 05/23/17 at 16:31; Status DC Adenosine (Adenocard Inj) 6 mg ONCE ONCE IV PUSH Last administered on at 19:04; Start 05/23/17 at 17:45; Stop 05/23/17 at 17:46; Status DC Diltiazem HCl 125 mg/Sodium Chloride 125 ml @ 5 mls/hr TITRATE PRN IV Tachycardia Last administered on 05/24/17at 02:19; Start 05/23/17 at 18:30 Diltiazem HCl (Cardizem Inj) 22 mg BOLUS ONCE IV PUSH Last administered on at 18:15; Start 05/23/17 at 17:45; Stop 05/23/17 at 17:46; Status DC Amiodarone HCl (Cordarone Inj) 150 mg STK-MED ONCE .ROUTE ; Start 05/23/17 at 17 :55; Stop 05/23/17 at 17:56; Status DC Metoprolol Tartrate (Lopressor) 25 mg Q8HR PO Last administered on 05/24/17at 06 :14; Start 05/23/17 at 22:00 Amiodarone HCl 150 mg/Dextrose 103 ml @ 600 mls/hr Q11M ONCE IV Last administered on 05/23/17at 19:20; Start 05/23/17 at 18:45; Stop 05/23/17 at 18:55 ; Status DC Amiodarone HCl 450 mg/Sodium Chloride 250 ml @ 33.33 mls/ hr Q7H31M PRN IV Per Protocol Last administered on 05/24/17at 02:48; Start 05/23/17 at 19:00; Stop at 19:00 Magnesium Sulfate/ Dextrose 100 ml @ 100 mls/hr Q1H IV Last administered on at 20:17; Start 05/23/17 at 19:00; Stop 05/23/17 at 20:59; Status DC Diltiazem HCl (Cardizem Inj) 10 mg ONCE ONCE IV Last administered on at 19:05; Start 05/23/17 at 18:45; Stop 05/23/17 at 18:46; Status DC Diltiazem HCl (Cardizem Inj) 15 mg ONCE ONCE IV ; Start 05/23/17 at 18:45; Stop 05/23/17 at 18:46; Status DC Diltiazem HCl (Cardizem Inj) 10 mg ONCE ONCE IV ; Start 05/23/17 at 18:45; Stop 05/23/17 at 18:46; Status DC Digoxin (Lanoxin Inj) 0.5 mg STK-MED ONCE .ROUTE ; Start 05/23/17 at 18:58; Stop 05/23/17 at 18:59; Status DC Digoxin (Lanoxin Inj) 0.25 mg NOW ONCE IV PUSH Last administered on 05/23/17at 19:09; Start 05/23/17 at 19:15; Stop 05/23/17 at 19:16; Status DC Calcium Carbonate (Tums Chew) 500 mg ONCE ONCE CHEW Last administered on at 07:17; Start 05/24/17 at 06:45; Stop 05/24/17 at 06:52; Status DC Potassium Chloride (KCl) 40 meq ONCE ONCE PO Last administered on 05/24/17at 10 :09; Start 05/24/17 at 08:30; Stop 05/24/17 at 08:31; Status DC Pantoprazole Sodium (Protonix Inj) 40 mg Q24H IV PUSH ; Start 05/24/17 at 12:00 ; Status UNV A/P Assessment and Plan This is a 76-year-old male with 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 Chest x-ray shows right-sided pleural effusion that was reviewed by me. -Status post therapeutic thoracentesis on 05/22 by IR. -Drastic improvement in his respiratory after thoracentesis. [employer] Agent Dr. Young consulted stated that patient is stable can follow up as outpatient. Paroxysmal atrial fibrillation with RVR -Rate better control. Patient was given Cardizem bolus and now on drip. On amiodarone drip. On diltiazem. -Pending 2-D echo. -Consult air quality consultant. Non-small cell lung cancer with metastases to the bone -Dr. Gregorio consulted and following. Neutropenia/anemia/mild thrombocytopenia -Status post chemotherapy on Friday -Oncologist managing. - Continue Neupogen Hypotension on admission. -Review labs. Patient is third spacing with low albumin. Decrease oral intake along with diarrhea. -Improved on IV fluids. Status post albumin given. -Resolved. Diarrhea -Mostly secondary to chemotherapy. C. difficile negative. -Reviewed CT scan of the abdomen which shows metastases to the bones, left adrenal gland, and lungs. -Will start Lactinex. Abdominal pain -More in the epigastric area. Will check flu. Seems to be more due to gastritis. Will start Protonix. Will also get a KUB. CT scan abdomen was done on admission as above. Acute on chronic pain secondary to metastatic disease -Pain medication adjusted by oncologist. Patient now on PO Dilaudid. Acute on chronic renal failure -Patient was recently taken off of ibuprofen due to worsening renal function. -Most likely secondary to combination of hypotension and ibuprofen use. Not recommend NSAID use. - Urologist was consulted and stated very unlikely due to BPH. Patient was started on Flomax and Proscar. -Chronic continues to improve. Avoid nephrotoxins. Continue trend creatinine and strict ins and outs. Hypertension -Patient on multiple medication due to age fibrillation with RVR. Failure to thrive -Secondary to cancer and chemotherapy treatment. -On Megace. Dietitian consulted. Tobacco dependence -Patient has decreased amount of cigarettes he is smoking. Smoking cessation. DVT prophylaxis -Chemoprophylaxis held secondary to anticipating thoracentesis. Patient son at the bedside during the interview. Lidia Sanchez MD May 24, 2017 11:49
[2017-05-24] MEDS: SODIUM CHLOR 0.9% 1000 ML INJ 1,000 ML IV SCH (12:16)
[2017-05-24] MEDS: DILTIAZEM HCL 60 MG TAB PO SCH ×2 (12:24→18:04)
[2017-05-24] MEDS: PANTOPRAZOLE SODIUM 40 MG VIAL IV PUSH SCH (12:24)
[2017-05-24] MEDS: FILGRASTIM 480 MCG/1.6 ML VIAL SQ SCH (12:30)
[2017-05-24] MEDS: SODIUM CHLORIDE 0.9% FLUSH 10 ML FLUSH IV FLUSH SCH ×2 (12:31→21:00)
--- NOTE | 2017-05-24 14:41 | EKG ---
Date Performed: 05/23/2017 Time Performed: 14:03:51 PTAGE: 76 years EKG: ATRIAL FIBRILLATION WITH RAPID VENTRICULAR RESPONSE RIGHT BUNDLE BRANCH BLOCK LEFT ANTERIOR FASCICULAR BLOCK ABNORMAL ECG PREVIOUS TRACING : 05/22/2017 12.35 Atrial fibrillation is new since prior tracing. Clinical co rrelation is recommended. DOCTOR: Christopher Negrete Interpretating Date/Time 05/24/2017 14:40:57
--- NOTE | 2017-05-24 16:28 | ECHRPT ---
Indication: A FIB FLUTTER CONCLUSIONS Normal left ventricular size. Wall thickness is measured at the upper limits of normal. Mitral annular calcification is present. The pulmonary valve is not well visualized. BP: 110 / 54 HR: 83 Rhythm: MEASUREMENTS (Male / Female) Normal Values Technical Quality:Good 2D ECHO LV Diastolic Diameter PLAX 3.9 cm 4.2 - 5.9 / 3.9 - 5.3 cm LV Systolic Diameter PLAX 2.7 cm IVS Diastolic Thickness 1.3 cm 0.6 - 1.0 / 0.6 - 0.9 cm LVPW Diastolic Thickness 0.9 cm 0.6 - 1.0 / 0.6 - 0.9 cm LV Relative Wall Thickness 0.6 RV Internal Dim ED PLAX 3.0 cm DOPPLER Mitral E Point Velocity 70.6 cm/s Mitral A Point Velocity 80.2 cm/s Mitral E to A Ratio 0.9 TR Peak Velocity 292.8 cm/s TR Peak Gradient 34.3 mmHg FINDINGS LEFT VENTRICLE Normal left ventricular size. Wall thickness is measured at the upper limits of normal. The left ventricular systolic function is normal with an estimated ejection fraction in the range of 60-65%. RIGHT VENTRICLE Normal right ventricular size and systolic function. LEFT ATRIUM The left atrial size is normal. RIGHT ATRIUM The right atrial size is normal. ATRIAL SEPTUM Normal atrial septal thickness without atrial level shunting by limited color doppler interrogation. AORTA The aortic root and proximal ascending aorta are normal in size on limited imaging. MITRAL VALVE Mitral annular calcification is present. AORTIC VALVE Trileaflet aortic valve. No aortic valve stenosis or regurgitation. TRICUSPID VALVE Structurally normal tricuspid valve. No tricuspid valve stenosis or regurgitation. PULMONARY VALVE The pulmonary valve is not well visualized. VESSELS The inferior vena cava is normal in size. PERICARDIUM No pericardial effusion. Sammy Ellis MD, FACC (Electronically Signed) Final Date:24 May 2017 16:28
--- NOTE | 2017-05-24 16:34 | RADRPT ---
EXAM DATE/TIME: 05/24/2017 15:55 [facility] COMPARISON: CT ABDOMEN & PELVIS W/O CONTRAST, May 22, 2017, 13:32. INDICATIONS : Abdominal pain. MEDICAL HISTORY : Hypertension. Metastatic, lung. SURGICAL HISTORY : Cholecystectomy. ENCOUNTER: Subsequent ACUITY: 3 days PAIN SCORE: 10/10 LOCATION: Abdomen. FINDINGS: 2 supine AP views of the abdomen. 2 adjacent distended air filled loops of mid small bowel measure up to 5 cm in diameter. Gas filled distended stomach noted. Minimal gas in the colon. Degenerative find ings lumbar spine. Surgical clips right upper quadrant. Moderate osteoarthritic findings of the right hip. No abnormal abdominal calcification. CONCLUSION: Nonspecific bowel gas pattern with moderately distended loops of small bowel in the left upper quadra nt. Most likely to represent ileus. Gerald Preciado MD on May 24, 2017 at 16:30 Board Certified Radiologist. This report was verified electronically.
--- NOTE | 2017-05-24 17:04 | MB ---
cc: LOUIE CRAVEN DO DATE OF CONSULTATION: 05/24/2017 REASON FOR CONSULTATION: Atrial fibrillation with rapid ventricular response. HISTORY OF PRESENT ILLNESS: Abraham Acosta is a pleasant 76-year-old male who presented to the [facility] Emergency Room for a myriad of symptoms on May 22, 2017. This included shortness of breath, general weakness and diarrhea. The patient has known nonsmall cell lung cancer with metastatic disease to the bone and recently has been on chemotherapy. He has had decreased appetite recently. While in the hospital, his beta renaldo was held as he was somewhat hypotensive with systolic blood pressures in the 70 to 90 area. He ended up going into atrial fibrillation with rapid ventricular response last night. Heart rates were around 180. He was evaluated by Dr. Huang and Dr. Banerjee and he was also placed on a Cardizem drip as well as Amiodarone drip. This morning he converted back to normal sinus rhythm. On seeing him this morning, he states that he has no chest pain or shortness of breath at this time. PAST MEDICAL HISTORY: 1. Nonsmall cell lung cancer with metastasis to the bone. 2. Hypertension. 3. Atrial fibrillation. The patient states that he had one episode a number of years ago for which they needed to cardiovert him. 4. Tobacco dependence. PAST SURGICAL HISTORY: 1. Left knee arthroscopy. 2. Cholecystectomy. 3. Biopsy of the lung. ALLERGIES: NO KNOWN DRUG ALLERGIES. MEDICATIONS: 1. Anoroelipta 62.5 / 25 one puff daily. 2. Metoprolol tartrate 50 milligrams daily. 3. Norvasc 5 milligrams daily. 4. Lisinopril 40 milligrams daily. 5. Spironolactone 50 milligrams daily. 6. Fentanyl patch. 7. [place] 7.5 / 325 every four to six hours as needed for pain. 8. Prochlorperazine 10 milligrams every night. 9. Zofran 8 milligrams three times a day as needed for nausea and vomiting. 10. Dexamethasone 1 milligram as directed. 11. Finasteride 5 milligrams daily. FAMILY HISTORY: Denies premature coronary artery disease or sudden cardiac within the family. SOCIAL HISTORY: The patient smokes half-a-pack of cigarettes a day. Occasionally drinks alcohol. Denies illicit drug abuse. REVIEW OF SYSTEMS Fourteen systems were reviewed including osteopathic with pertinent positives and negatives as above; otherwise negative. PHYSICAL EXAMINATION: VITAL SIGNS: Temperature 98.3, heart rate 100, blood pressure 127/70, respirations 16, pulse ox 95% on room air. GENERAL: In general the patient appears his stated age, no acute distress, alert, awake and oriented x3. HEAD, EYES, EARS, NOSE, THROAT: Extraocular muscles intact. Mucous membranes moist. NECK: Supple. No JVD at 45 degrees. No carotid bruits heard bilaterally. Carotid upstroke is brisk in nature. HEART: Regular rate and rhythm. Positive first and second heart sounds with no noted murmurs, gallops or rubs. LUNGS: Decreased breath sounds bilaterally, but no overt wheezes, rales or rhonchi. ABDOMEN: Soft, nontender, nondistended. No organomegaly noted. EXTREMITIES: No clubbing, cyanosis or edema. Femoral and distal pulses are intact bilaterally. NEUROLOGIC: No focal deficits. SKIN: Warm, dry and intact. OSTEOPATHIC: Osteopathically, no kyphoscoliosis, lordosis or paraspinal tender points. LABORATORY FINDINGS: Hemoglobin 9.6, hematocrit 28.0, platelets 50,000. Potassium 3.3, BUN 72, creatinine 1.13. EKGS: Electrocardiogram (May 23, 2017): atrial fibrillation with rapid ventricular response, right bundle branch block, left anterior fascicular block. IMPRESSION: 1. Atrial fibrillation with rapid ventricular response, currently in normal sinus rhythm. 2. [id number] lung cancer with metastasis to the bones. 3. Pancytopenia secondary to chemotherapy. 4. History of hypertension. 5. Chronic tobacco use. RECOMMENDATIONS: 1. Mr. Acosta appeared to go into atrial fibrillation with rapid ventricular response and has since gone back into normal sinus rhythm. 2. As he is on Cardizem and amiodarone drip, we will attempt to change these to oral medications. Cardizem will be a 60 milligrams q. 6 six and this could eventually be changed to long-acting upon discharge. I would continue to hold his Norvasc. 3. We will change his amiodarone to p.o. 200 milligrams daily but I would do this for a short term and discontinue it in the near future as long-term this may be detrimental with his lungs. 4. The patient is not a candidate for anticoagulation with his significant thrombocytopenia with platelets in the 50s. If at anytime his platelets seem to be higher than this and relatively stable, consideration could be made for aspirin 81 milligrams daily but would not place on Coumadin, warfarin or a new oral anticoagulant as he most likely will have prolonged thrombocytopenia due to chemotherapy. 5. We will check a 2-D echo to look at his overall left ventricular function, cardiac structure and possible valvulopathies. 6. I spoke to him for greater than 3 minutes about tobacco cessation. Thank you for allowing me to see Abraham Acosta. If there are any questions, please do not hesitate to call. Louie Craven DO VGTravis/GUZMAN /11:36 AM /4:41 PM
[2017-05-24] MEDS: LACTOBACILLUS ACIDOPHILUS TAB PO SCH (21:24)
[2017-05-25] VITALS (16 sets, daily range): BP systolic 106–133; BP diastolic 49–66; PULSE 80–123; RESP 14–20; TEMP 97.2–98.8; O2SAT 93–98
[2017-05-25] MEDS: DILTIAZEM HCL 60 MG TAB PO SCH ×4 (00:02→17:42)
[2017-05-25] MEDS: SODIUM CHLOR 0.9% 1000 ML INJ 1,000 ML IV SCH (00:12)
[2017-05-25 05:37] LABS: HEMATOCRIT 24.4 % (39.0-51.0); HEMOGLOBIN 8.2 GM/DL (13.0-17.0); MEAN CELL VOLUME 92.4 FL (80.0-100.0); MEAN CORPUSCULAR HEMOGLOBIN 31.1 PG (27.0-34.0); MEAN CORPUSCULAR HGB CONC 33.6 % (32.0-36.0); MEAN PLATELET VOLUME 8.1 FL (7.0-11.0); PLATELET COUNT 20 TH/MM3 (150-450); RED BLOOD COUNT 2.64 MIL/MM3 (4.50-5.90); RED CELL DISTRIBUTION WIDTH 13.1 % (11.6-17.2); WHITE BLOOD COUNT 0.4 TH/MM3 (4.0-11.0)
[2017-05-25 05:43] LABS: INTERNATIONAL NORMALIZED RATIO 1.1 RATIO; PROTHROMBIN TIME - PATIENT 11.4 SEC (9.8-11.6)
[2017-05-25 05:53] LABS: BICARBONATE 15.6 MEQ/L (21.0-32.0); CALCIUM 8.3 MG/DL (8.5-10.1); CREATININE 1.29 MG/DL (0.60-1.30)
[2017-05-25] MEDS: METOPROLOL TARTRATE 25 MG TAB PO SCH ×3 (06:06→21:35)
[2017-05-25 07:18] LABS: BANDS 6 % (0-6); DOHLE BODIES PRESENT (NONE SEEN); LYMPHOCYTES 16 % (9-44); NEUTROPHIL # MANUAL DIFF 0.3 TH/MM3 (1.8-7.7); POLYS (SEG NEUTROPHILS) 78 % (16-70)
[2017-05-25 07:19] LABS: ROULEAUX PRESENT (NORMAL)
[2017-05-25] MEDS: AMIODARONE 200 MG TAB PO SCH (08:40)
[2017-05-25] MEDS: FINASTERIDE 5 MG TAB PO SCH (08:44)
[2017-05-25] MEDS: LACTOBACILLUS ACIDOPHILUS TAB PO SCH ×2 (08:44→21:35)
[2017-05-25] MEDS: RESP: ALBUTEROL 2.5 MG/IPRATROPIUM 0.5 MG NEB (SCH) INH ×2 (08:44→20:48)
[2017-05-25] MEDS: FOLIC ACID 1 MG TAB PO SCH (08:44)
[2017-05-25] MEDS: TAMSULOSIN HCL 0.4 MG CAP PO SCH (08:44)
[2017-05-25] MEDS: MEGESTROL ACETATE SUSP 400 MG/10 ML CUP PO SCH (08:44)
[2017-05-25] MEDS: guaiFENesin E.R. 600 MG TAB PO SCH ×2 (08:44→21:35)
[2017-05-25] MEDS: UMECLIDINIUM 62.5 MCG/VILANTEROL 25 MCG INHALER INH SCH (08:44)
[2017-05-25] MEDS: SODIUM CHLORIDE 0.9% FLUSH 10 ML FLUSH IV FLUSH SCH ×2 (08:45→21:42)
[2017-05-25] MEDS: SODIUM CHLOR 0.45% 1000 ML INJ 1,000 ML IV SCH ×2 (08:51→21:39)
[2017-05-25] MEDS ORDERED: POTASSIUM CHLORIDE 10 MEQ CONTROLLED RELEASE TAB PO ONE (09:00)
[2017-05-25] MEDS ORDERED: POTASSIUM CHLORIDE 25 MEQ EFFERVESCENT TAB PO ONE (09:00)
--- NOTE | 2017-05-25 10:27 | PD.CARD.PN ---
Subjective Subjective Remarks Patient feeling somewhat better today Heart rates better controlled 90-100 Objective Medications Current Medications Medications (Trade) Dose Ordered Sig/Javier Route Start Time Stop Time Status Last Admin (NS Flush) 2 ml UNSCH PRN IV FLUSH 05/22/17 13:45 (NS Flush) 2 ml BID IV FLUSH 05/22/17 21:00 05/24/17 12:31 (Tylenol) 650 mg Q4H PRN PO 05/22/17 13:45 (Zofran Inj) 4 mg Q6H PRN IVP 05/22/17 13:45 05/24/17 02:19 (Narcan Inj) 0.4 mg UNSCH PRN IV PUSH 05/22/17 13:45 (Mucinex Er) 1,200 mg BID PO 05/22/17 14:30 05/25/17 08:44 (Folate) 1 mg DAILY PO 05/23/17 09:00 05/25/17 08:44 ([place] 5-325 Mg) 1 tab Q4H PRN PO 05/22/17 14:45 Future Hold (Neupogen Inj) 480 mcg DAILY@14 SQ 05/22/17 18:00 05/24/17 12:30 ([place] 10-325 Mg) 1 tab Q4H PRN PO 05/22/17 18:45 Future Hold (Morphine Inj) 2 mg Q4H PRN IV PUSH 05/22/17 18:45 (Dilaudid) 2 mg Q4H PRN PO 05/22/17 19:45 05/24/17 10:08 (Heparin Central Flush) 250 units UNSCH PRN IV FLUSH 05/23/17 05:30 05/23/17 05:59 (Heparin Central Flush) 500 units UNSCH IV FLUSH 05/23/17 05:30 (NS Flush) 5 ml UNSCH PRN IV FLUSH 05/23/17 05:30 (Cathflo Activase Inj) 2 mg Q2H PRN INTRACATH 05/23/17 10:00 05/23/17 10:42 (Proscar) 5 mg DAILY PO 05/23/17 11:00 05/25/17 08:44 (Flomax) 0.4 mg DAILY PO 05/23/17 11:00 05/25/17 08:44 (Duoneb Neb) 1 ampule BID NEB INH 05/23/17 13:00 05/25/17 08:44 (Duoneb Neb) 1 ampule Q6HR NEB PRN INH 05/23/17 13:00 (Megace Liq) 400 mg DAILY PO 05/24/17 09:00 05/25/17 08:44 Diltiazem HCl 125 mg/Sodium Chloride 125 ml @ 5 mls/hr TITRATE PRN IV 05/23/17 18:30 05/24/17 02:19 (Lopressor) 25 mg Q8HR PO 05/23/17 22:00 05/25/17 06:06 (Protonix Inj) 40 mg Q24H IV PUSH 05/24/17 12:00 05/24/17 12:24 (Cardizem) 60 mg Q6HR PO 05/24/17 12:00 05/25/17 06:06 (Cordarone) 200 mg DAILY PO 05/25/17 09:00 05/25/17 08:40 (Lactinex) 1 tab Q12HR PO 05/24/17 21:00 05/25/17 08:44 Sodium Chloride 1,000 ml @ 70 mls/hr [id number] IV 05/25/17 09:00 05/25/17 08:51 Vital Signs / I&O Vital Signs Date Time Temp Pulse Resp B/P (MAP) Pulse Ox O2 Delivery O2 Flow Rate FiO2 05/25/17 08:46 95 21 05/25/17 04:00 107 05/25/17 04:00 98.7 107 20 123/59 (80) 97 05/25/17 03:00 97 Room Air 05/25/17 00:00 95 05/25/17 00:00 98.7 95 20 120/54 (76) 93 05/24/17 23:00 96 Room Air 05/24/17 20:34 99 21 05/24/17 20:00 80 05/24/17 19:00 97.3 80 20 104/54 (71) 96 05/24/17 19:00 96 Room Air 05/24/17 18:01 90 108/57 05/24/17 17:46 99.1 89 16 106/57 (73) 05/24/17 15:00 Room Air 05/24/17 15:00 90 1/27/18 12:28 98.4 91 14 118/56 (76) 05/24/17 12:00 92 I/O 05/24/17 05/24/17 05/24/17 05/25/17 05/25/17 05/25/17 07:00 15:00 23:00 07:00 15:00 23:00 Intake Total 970 ml 1620 ml 720 ml Balance 970 ml 1620 ml 720 ml Intake Oral 720 ml 720 ml 720 ml IV Total 250 ml 900 ml # Voids 5 3 # Bowel Movements 4 3 Physical Exam GENERAL: NAD, AAOx3 SKIN: Warm and dry. HEAD: Atraumatic. Normocephalic. EYES: Pupils equal and round. No scleral icterus. No injection or drainage. ENT: No nasal bleeding or discharge. Mucous membranes pink and moist. NECK: Trachea midline. No JVD. CARDIOVASCULAR: Irregularly irregular RESPIRATORY: No accessory muscle use. Clear to auscultation. Breath sounds equal bilaterally. GASTROINTESTINAL: Abdomen soft, non-tender, nondistended. Hepatic and splenic margins not palpable. MUSCULOSKELETAL: Extremities without clubbing, cyanosis, or edema. No obvious deformities. NEUROLOGICAL: Awake and alert. No obvious cranial nerve deficits. Motor grossly within normal limits. Five out of 5 muscle strength in the arms and legs. Normal speech. PSYCHIATRIC: Appropriate mood and affect; insight and judgment normal. Laboratory Laboratory Tests Test 05/24/17 16:55 05/25/17 05:00 Potassium Level 3.8 MEQ/L 3.3 MEQ/L White Blood Count 0.4 TH/MM3 Red Blood Count 2.64 MIL/MM3 Hemoglobin 8.2 GM/DL Hematocrit 24.4 % Mean Corpuscular Volume 92.4 FL Mean Corpuscular Hemoglobin 31.1 PG Mean Corpuscular Hemoglobin Concent 33.6 % Red Cell Distribution Width 13.1 % Platelet Count 20 TH/MM3 Mean Platelet Volume 8.1 FL CBC Comment AUTO DIFF Differential Total Cells Counted 32 Neutrophils % (Manual) 78 % Band Neutrophils % 6 % Lymphocytes % 16 % Neutrophils # (Manual) 0.3 TH/MM3 Differential Comment FINAL DIFF MANUAL Dohle Bodies PRESENT Platelet Estimate RARE Platelet Morphology Comment NORMAL Rouleau PRESENT Prothrombin Time 11.4 SEC Prothromb Time International Ratio 1.1 RATIO Activated Partial Thromboplast Time 25.1 SEC Fibrinogen 309 mg/dL Blood Urea Nitrogen 81 MG/DL Creatinine 1.29 MG/DL Random Glucose 156 MG/DL Calcium Level 8.3 MG/DL Sodium Level 155 MEQ/L Chloride Level 131 MEQ/L Carbon Dioxide Level 15.6 MEQ/L Anion Gap 8 MEQ/L Estimat Glomerular Filtration Rate 54 ML/MIN Assessment and Plan Problem List: (1) Paroxysmal A-fib ICD Codes: I48.0 - Paroxysmal atrial fibrillation (2) Lung cancer ICD Codes: C34.90 - Malignant neoplasm of unspecified part of unspecified bronchus or lung Status: Acute (3) Pleural effusion ICD Codes: J90 - Pleural effusion, not elsewhere classified Status: Acute (4) Neutropenia ICD Codes: D70.9 - Neutropenia, unspecified Status: Acute (5) Weakness generalized ICD Codes: R53.1 - Weakness Status: Acute (6) Renal insufficiency ICD Codes: N28.9 - Disorder of kidney and ureter, unspecified (7) Pain ICD Codes: R52 - Pain, unspecified Assessment and Plan 1) Afib with RVR Now more controlled, con't Cardizem/Amiodarone PO If further episodes of Afib with RVR, may need to increase medications Would attempt to eventually wean off Amiodarone if possible over next 1-2 weeks, would prefer not to stay on terminal manager Cardizem can be changed to long acting on discharge Not a candidate for anti-coagulation, not a candidate for ASA 2) EF 60-65% 3) Lung cancer with mets per Heme/Onc 4) Pancytopenia secondary to chemotherapy Problem Qualifiers (1) Lung cancer: Qualified Codes: C34.90 - Malignant neoplasm of unspecified part of unspecified bronchus or lung (2) Neutropenia: Qualified Codes: D70.9 - Neutropenia, unspecified Louie Fox DO May 25, 2017 10:27
--- NOTE | 2017-05-25 11:09 | HHI.PR ---
Subjective Remarks Follow-up for pancytopenia secondary to chemotherapy, age of fibrillation with RVR, abdominal pain Patient stated that abdominal pain has improved. Denied any nausea vomiting. He stated he is able to take oral intake. Denies any chest pain, shortness of breathing, palpitation. Patient asking to go home today. He stated that he does not want to be here anymore even after explaining to patient in great detail why he still here. He still asked to go home. I told patient that if he does not want to be treated anymore he should consider hospice. After that patient did not say anything. I told patient that if he needs time to think about things he can let me know later but we will continue with aggressive treatment as directed. Patient continues to have diarrhea. Objective Vitals Vital Signs Date Time Temp Pulse Resp B/P (MAP) Pulse Ox O2 Delivery O2 Flow Rate FiO2 05/25/17 08:46 95 21 05/25/17 04:00 107 05/25/17 04:00 98.7 107 20 123/59 (80) 97 05/25/17 03:00 97 Room Air 05/25/17 00:00 95 05/25/17 00:00 98.7 95 20 120/54 (76) 93 05/24/17 23:00 96 Room Air 05/24/17 20:34 99 21 05/24/17 20:00 80 05/24/17 19:00 97.3 80 20 104/54 (71) 96 05/24/17 19:00 96 Room Air 05/24/17 18:01 90 108/57 05/24/17 17:46 99.1 89 16 106/57 (73) 05/24/17 15:00 Room Air 05/24/17 15:00 90 05/24/17 12:28 98.4 91 14 118/56 (76) 05/24/17 12:00 92 I/O 05/24/17 05/24/17 05/24/17 05/25/17 05/25/17 05/25/17 07:00 15:00 23:00 07:00 15:00 23:00 Intake Total 970 ml 1620 ml 720 ml Balance 970 ml 1620 ml 720 ml Intake Oral 720 ml 720 ml 720 ml IV Total 250 ml 900 ml # Voids 5 3 # Bowel Movements 4 3 Result Diagram: 05/25/17 0500 05/25/17 0500 Imaging Last Impressions Abdomen X-Ray 05/24/17 0000 Signed Impressions: Service Date/Time: Wednesday, May 24, 2017 15:55 - CONCLUSION: Nonspecific bowel gas pattern with moderately distended loops of small bowel in the left upper quadrant. Most likely to represent ileus. Gerald Preciado MD Venous Access Device Injection 05/23/17 0000 Signed Impressions: Service Date/Time: Tuesday, May 23, 2017 17:18 - CONCLUSION: 1. Port catheter and tubing are intact. 2. Port tip projects over the central venous system. There appears to be a persistent fibrin sheath at the catheter tip despite recent TPA infusion. Derek Davis MD Chest X-Ray 05/22/17 1223 Signed Impressions: Service Date/Time: April 12:41 - CONCLUSION: Increase in size of right pleural effusion and the right lung base consolidation and/or compressive collapse. Nino Brunner MD Thoracentesis Ultrasound 05/22/17 0000 Signed Impressions: Service Date/Time: April 14:56 - CONCLUSION: Uncomplicated ultrasound guided right thoracentesis. Sampling was not requested. Quinn Huang Jr., MD Abdomen/Pelvis CT 05/22/17 0000 Signed Impressions: Service Date/Time: April 13:32 - CONCLUSION: 1. Diffuse metastatic disease to the visualized bony structures, left adrenal gland, and visualized lung parenchyma. Special note is made of destructive lesions involving the T10 and L1 levels that involve the left neural foramen and could be possible source of the left radiculopathy. 2. Large right-sided pleural effusion. 3. Prior cholecystectomy. Quinn Huang Jr., MD Objective Remarks GENERAL: in NAD CARDIOVASCULAR: Tachycardic in the 110s rate and rhythm without murmurs, gallops , or rubs. RESPIRATORY: Decreased breath sounds in the right lower area. Otherwise clear to auscultation. Dressing in place on the right side. No accessory muscle use. GASTROINTESTINAL: Abdomen soft,neg TTP, nondistended. Negative for any peritoneal signs. MUSCULOSKELETAL: No cyanosis, or edema. BACK: Nontender without obvious deformity. No CVA tenderness. Medications and IVs Current Medications Sodium Chloride 1,000 ml @ 1,000 mls/hr Q1H IV Last administered on 1/25/18at 12:58; Start 05/22/17 at 12:23; Stop 05/22/17 at 13:22; Status DC Sodium Chloride (NS Flush) 2 ml UNSCH PRN IV FLUSH FLUSH AFTER USING IV ACCESS ; Start 05/22/17 at 12:30; Stop 05/22/17 at 13:53; Status DC Sodium Chloride (NS Flush) 2 ml UNSCH PRN IV FLUSH FLUSH AFTER USING IV ACCESS ; Start 05/22/17 at 13:45 Sodium Chloride (NS Flush) 2 ml BID IV FLUSH Last administered on 05/24/17at 12: 31; Start 05/22/17 at 21:00 Acetaminophen (Tylenol) 650 mg Q4H PRN PO TEMP > 100.4; Start 05/22/17 at 13:45 Ondansetron HCl (Zofran Inj) 4 mg Q6H PRN IVP NAUSEA OR VOMITING Last administered on 05/24/17at 02:19; Start 05/22/17 at 13:45 Naloxone HCl (Narcan Inj) 0.4 mg UNSCH PRN IV PUSH SEE LABEL COMMENTS; Start at 13:45 Guaifenesin (Mucinex Er) 1,200 mg BID PO Last administered on 05/25/17at 08:44; Start 05/22/17 at 14:30 Dexamethasone (Decadron) 1 mg DAILY PO ; Start 05/23/17 at 09:00; Status Cancel Folic Acid (Folate) 1 mg DAILY PO Last administered on 05/25/17at 08:44; Start 05/23/17 at 09:00 Ascorbic Acid (Vitamin C) 500 mg DAILY PO ; Start 05/23/17 at 09:00; Stop at 13:17; Status DC Non-Formulary Medication 100 mg DAILY PO ; Start 05/23/17 at 09:00; Stop at 09:00; Status DC Non-Formulary Medication 250 mg DAILY PO ; Start 05/23/17 at 09:00; Stop at 09:00; Status DC Non-Formulary Medication 250 mg DAILY PO ; Start 05/23/17 at 09:00; Status UNV Non-Formulary Medication 50 mcg DAILY PO ; Start 05/23/17 at 09:00; Stop at 09:00; Status DC Beta Carotene (Vitamin A) 25,000 units DAILY PO ; Start 05/23/17 at 09:00; Stop 05/23/17 at 13:17; Status DC Vitamin E (Vitamin E) 400 units DAILY PO ; Start 05/23/17 at 09:00; Stop at 13:17; Status DC Acetaminophen/ Hydrocodone Bitart ([place] 5-325 Mg) 1 tab Q4H PRN PO pain 1-7; Start 05/22/17 at 14:45; Status Future Hold Sodium Chloride 1,000 ml @ 70 mls/hr [id number] IV Last administered on at 00:12; Start 05/22/17 at 15:00; Stop 05/25/17 at 08:31; Status DC Albumin Human 50 ml @ 60 mls/hr ONCE ONCE IV Last administered on 05/22/17at 17 :22; Start 05/22/17 at 15:15; Stop 05/22/17 at 16:04; Status DC Lidocaine HCl (Xylocaine 1% Inj) 20 ml STK-MED ONCE .ROUTE Last administered on 05/22/17at 15:48; Start 05/22/17 at 15:48; Stop 05/22/17 at 15:49; Status DC Filgrastim (Neupogen Inj) 480 mcg DAILY@14 SQ Last administered on 05/24/17at 12 :30; Start 05/22/17 at 18:00 Acetaminophen/ Hydrocodone Bitart ([place] 10-325 Mg) 1 tab Q4H PRN PO 8-10; Start 05/22/17 at 18:45; Status Future Hold Morphine Sulfate (Morphine Inj) 2 mg Q4H PRN IV PUSH PAIN, SEVERE 7-10 ON SCALE ; Start 05/22/17 at 18:45 Hydromorphone HCl (Dilaudid Pf Inj) 1 mg ONCE ONCE IV PUSH Last administered on 05/22/17at 20:23; Start 05/22/17 at 19:45; Stop 05/22/17 at 19:46; Status DC Hydromorphone HCl (Dilaudid Pf Inj) 1 mg UNSCH X1 PRN IV PUSH SEE LABEL COMMENTS; Start 05/22/17 at 19:45; Stop 05/22/17 at 19:46; Status Cancel Hydromorphone HCl (Dilaudid Pf Inj) 1 mg UNSCH X1 PRN IV PUSH SEE LABEL COMMENTS; Start 05/22/17 at 20:15; Stop 05/22/17 at 20:16; Status DC Megestrol Acetate (Megace Liq) 40 mg ACHS PO Last administered on 05/23/17at 12: 45; Start 05/22/17 at 21:00; Stop 05/23/17 at 15:49; Status DC Hydromorphone HCl (Dilaudid) 2 mg Q4H PRN PO PAIN SCALE 4 TO 7 Last administered on 05/24/17at 10:08; Start 05/22/17 at 19:45 Lactulose (Lactulose Liq) 30 ml DAILY PO ; Start 05/23/17 at 09:00; Stop at 13:17; Status DC Pneumococcal Polyvalent Vaccine (Pneumovax-23 Inj) 25 mcg ONCE ONCE IM ; Start 05/23/17 at 09:00; Stop 05/23/17 at 09:01; Status DC Heparin Sodium (Porcine) (Heparin Central Flush) 250 units UNSCH PRN IV FLUSH SEE PROTOCOL TABLE Last administered on 05/23/17at 05:59; Start 05/23/17 at 05:30 Heparin Sodium (Porcine) (Heparin Central Flush) 500 units UNSCH IV FLUSH ; Start 05/23/17 at 05:30 Sodium Chloride (NS Flush) 5 ml UNSCH PRN IV FLUSH FLUSH AFTER USING IV ACCESS ; Start 05/23/17 at 05:30 Alteplase, Recombinant (Cathflo Activase Inj) 2 mg Q2H PRN INTRACATH clotted catheter Last administered on 05/23/17at 10:42; Start 05/23/17 at 10:00 Finasteride (Proscar) 5 mg DAILY PO Last administered on 05/25/17at 08:44; Start 05/23/17 at 11:00 Tamsulosin HCl (Flomax) 0.4 mg DAILY PO Last administered on 05/25/17at 08:44; Start 05/23/17 at 11:00 Albuterol/ Ipratropium (Duoneb Neb) 1 ampule BID NEB INH Last administered on 05/25/17at 08:44; Start 05/23/17 at 13:00 Albuterol/ Ipratropium (Duoneb Neb) 1 ampule Q6HR NEB PRN INH sob; Start at 13:00 Metoprolol Tartrate (Lopressor) 25 mg Q12HR PO Last administered on 05/23/17at 15:20; Start 05/23/17 at 14:45; Stop 05/23/17 at 18:19; Status DC Megestrol Acetate (Megace Liq) 400 mg DAILY PO Last administered on 05/25/17at 08:44; Start 05/24/17 at 09:00 Heparin Sodium (Porcine) (*HEPARIN CENTRAL FLUSH PERIprocedural ONLY) 500 units STK-MED ONCE IV FLUSH Last administered on 05/23/17at 16:10; Start 05/23/17 at 16:24; Stop 05/23/17 at 16:25; Status DC Iohexol (Omnipaque 350 Inj) 5 ml STK-MED ONCE OTHER Last administered on at 16:10; Start 05/23/17 at 16:10; Stop 05/23/17 at 16:31; Status DC Adenosine (Adenocard Inj) 6 mg ONCE ONCE IV PUSH Last administered on at 19:04; Start 05/23/17 at 17:45; Stop 05/23/17 at 17:46; Status DC Diltiazem HCl 125 mg/Sodium Chloride 125 ml @ 5 mls/hr TITRATE PRN IV Tachycardia Last administered on 05/24/17at 02:19; Start 05/23/17 at 18:30 Diltiazem HCl (Cardizem Inj) 22 mg BOLUS ONCE IV PUSH Last administered on at 18:15; Start 05/23/17 at 17:45; Stop 05/23/17 at 17:46; Status DC Amiodarone HCl (Cordarone Inj) 150 mg STK-MED ONCE .ROUTE ; Start 05/23/17 at 17 :55; Stop 05/23/17 at 17:56; Status DC Metoprolol Tartrate (Lopressor) 25 mg Q8HR PO Last administered on 05/25/17at 06 :06; Start 05/23/17 at 22:00 Amiodarone HCl 150 mg/Dextrose 103 ml @ 600 mls/hr Q11M ONCE IV Last administered on 05/23/17at 19:20; Start 05/23/17 at 18:45; Stop 05/23/17 at 18:55 ; Status DC Amiodarone HCl 450 mg/Sodium Chloride 250 ml @ 33.33 mls/ hr Q7H31M PRN IV Per Protocol Last administered on 05/24/17at 18:01; Start 05/23/17 at 19:00; Stop at 19:00; Status DC Magnesium Sulfate/ Dextrose 100 ml @ 100 mls/hr Q1H IV Last administered on at 20:17; Start 05/23/17 at 19:00; Stop 05/23/17 at 20:59; Status DC Diltiazem HCl (Cardizem Inj) 10 mg ONCE ONCE IV Last administered on at 19:05; Start 05/23/17 at 18:45; Stop 05/23/17 at 18:46; Status DC Diltiazem HCl (Cardizem Inj) 15 mg ONCE ONCE IV ; Start 05/23/17 at 18:45; Stop 05/23/17 at 18:46; Status DC Diltiazem HCl (Cardizem Inj) 10 mg ONCE ONCE IV ; Start 05/23/17 at 18:45; Stop 05/23/17 at 18:46; Status DC Digoxin (Lanoxin Inj) 0.5 mg STK-MED ONCE .ROUTE ; Start 05/23/17 at 18:58; Stop 05/23/17 at 18:59; Status DC Digoxin (Lanoxin Inj) 0.25 mg NOW ONCE IV PUSH Last administered on 05/23/17at 19:09; Start 05/23/17 at 19:15; Stop 05/23/17 at 19:16; Status DC Calcium Carbonate (Tums Chew) 500 mg ONCE ONCE CHEW Last administered on at 07:17; Start 05/24/17 at 06:45; Stop 05/24/17 at 06:52; Status DC Potassium Chloride (KCl) 40 meq ONCE ONCE PO Last administered on 05/24/17at 10 :09; Start 05/24/17 at 08:30; Stop 05/24/17 at 08:31; Status DC Pantoprazole Sodium (Protonix Inj) 40 mg Q24H IV PUSH Last administered on 05/24 12:24; Start 05/24/17 at 12:00 Diltiazem HCl (Cardizem) 60 mg Q6HR PO Last administered on 05/25/17at 06:06; Start 05/24/17 at 12:00 Amiodarone HCl (Cordarone) 200 mg DAILY PO Last administered on 05/25/17at 08:40 ; Start 05/25/17 at 09:00 Lactobacillus Acidophilus (Lactinex) 1 tab Q12HR PO Last administered on at 08:44; Start 05/24/17 at 21:00 Sodium Chloride 1,000 ml @ 70 mls/hr [id number] IV Last administered on at 08:51; Start 05/25/17 at 09:00 Potassium Chloride (KCl) 60 meq ONCE ONCE PO ; Start 05/25/17 at 09:00; Stop at 09:01; Status Cancel Potassium Bicarb/ Potassium Chloride (K-Lyte Cl Eff) 50 meq ONCE ONCE PO Last administered on 05/25/17at 09:06; Start 05/25/17 at 09:00; Stop 05/25/17 at 09:01; Status DC A/P Assessment and Plan This is a 76-year-old male with 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 Chest x-ray shows right-sided pleural effusion that was reviewed by me. -Status post therapeutic thoracentesis on 05/22 by IR. -Drastic improvement in his respiratory after thoracentesis. Web Ui Designer Dr. Young consulted stated that patient is stable can follow up as outpatient. Paroxysmal atrial fibrillation with RVR -Rate better control. Status post Cardizem drip and amiodarone drip. -Now on Cardizem and amiodarone by mouth. Per missile mechanic would attempt to eventually wean off amiodarone in the next 1-2 weeks. Patient is also not candidate for anticoagulation or aspirin due to thrombocytopenia. On discharge Cardizem can be changed to long-acting. -Echo reviewed with EF of 60-65%. Non-small cell lung cancer with metastases to the bone -Dr. Gregorio consulted and following. Pancytopenia secondary to chemotherapy -Status post chemotherapy on Friday -Oncologist managing. - Continue Neupogen -Transfusion per oncologist. Hypotension on admission. -Review labs. Patient is third spacing with low albumin. Decrease oral intake along with diarrhea. -Improved on IV fluids. Status post albumin given. -Resolved. Hypernatremia -Patient has decreased oral intake and he has been on normal saline. Will change fluids to half-normal saline. Continue to trend and monitor sodium. Diarrhea -Mostly secondary to chemotherapy. C. difficile negative. -Reviewed CT scan of the abdomen which shows metastases to the bones, left adrenal gland, and lungs. -on Lactinex. Abdominal pain -Today abdominal pain resolved. Pain was more in the epigastric area. -Patient on Protonix. -KUB on 05/24 shows ileus. Patient is asymptomatic. Education given to patient that ileus most likely secondary to pain medication in which patient is in a difficult situation since since does have metastases to the bones. Acute on chronic pain secondary to metastatic disease -Pain medication adjusted by oncologist. Patient now on PO Dilaudid. Acute on chronic renal failure -Patient was recently taken off of ibuprofen due to worsening renal function. -Most likely secondary to combination of hypotension and ibuprofen use. Not recommend NSAID use. - Urologist was consulted and stated very unlikely due to BPH. Patient was started on Flomax and Proscar. -Chronic continues to improve. Avoid nephrotoxins. Continue trend creatinine and strict ins and outs. Hypertension -Patient on multiple medication due to age fibrillation with RVR. Failure to thrive -Secondary to cancer and chemotherapy treatment. -On Megace. Dietitian consulted. Tobacco dependence -Patient has decreased amount of cigarettes he is smoking. Smoking cessation. DVT prophylaxis -Chemoprophylaxis held secondary to anticipating thoracentesis. Discharge Planning Poor prognosis. Once rate is controlled on oral medication and cleared by oncologist patient can be discharged to home. Lidia Sanchez MD May 25, 2017 11:09
--- NOTE | 2017-05-25 11:46 | PD.ONC.PN ---
Subjective Subjective Remarks Afebrile Patient reports his abdominal pain and nausea is overall improved Wants to go home States he has not eaten any breakfast yet today Objective Data Date Time Temp Pulse Resp B/P (MAP) Pulse Ox O2 Delivery O2 Flow Rate FiO2 05/25/17 08:46 95 21 05/25/17 04:00 107 05/25/17 04:00 98.7 107 20 123/59 (80) 97 05/25/17 03:00 97 Room Air 05/25/17 00:00 95 05/25/17 00:00 98.7 95 20 120/54 (76) 93 05/24/17 23:00 96 Room Air 05/24/17 20:34 99 21 05/24/17 20:00 80 05/24/17 19:00 97.3 80 20 104/54 (71) 96 05/24/17 19:00 96 Room Air 05/24/17 18:01 90 108/57 05/24/17 17:46 99.1 89 16 106/57 (73) 05/24/17 15:00 Room Air 05/24/17 15:00 90 05/24/17 12:28 98.4 91 14 118/56 (76) 05/24/17 12:00 92 05/25/17 05/25/17 05/25/17 07:00 15:00 23:00 Intake Total 720 ml Balance 720 ml Result Diagram: 05/25/17 0500 05/25/17 0500 Laboratory Results Laboratory Tests Test 05/24/17 16:55 05/25/17 05:00 Potassium Level 3.8 MEQ/L 3.3 MEQ/L White Blood Count 0.4 TH/MM3 Red Blood Count 2.64 MIL/MM3 Hemoglobin 8.2 GM/DL Hematocrit 24.4 % Mean Corpuscular Volume 92.4 FL Mean Corpuscular Hemoglobin 31.1 PG Mean Corpuscular Hemoglobin Concent 33.6 % Red Cell Distribution Width 13.1 % Platelet Count 20 TH/MM3 Mean Platelet Volume 8.1 FL CBC Comment AUTO DIFF Differential Total Cells Counted 32 Neutrophils % (Manual) 78 % Band Neutrophils % 6 % Lymphocytes % 16 % Neutrophils # (Manual) 0.3 TH/MM3 Differential Comment FINAL DIFF MANUAL Dohle Bodies PRESENT Platelet Estimate RARE Platelet Morphology Comment NORMAL Rouleau PRESENT Prothrombin Time 11.4 SEC Prothromb Time International Ratio 1.1 RATIO Activated Partial Thromboplast Time 25.1 SEC Fibrinogen 309 mg/dL Blood Urea Nitrogen 81 MG/DL Creatinine 1.29 MG/DL Random Glucose 156 MG/DL Calcium Level 8.3 MG/DL Sodium Level 155 MEQ/L Chloride Level 131 MEQ/L Carbon Dioxide Level 15.6 MEQ/L Anion Gap 8 MEQ/L Estimat Glomerular Filtration Rate 54 ML/MIN Culture Results Microbiology Date/Time Source Procedure Growth Status 05/24/17 17:15 Nasal Washing Influenza Types A,B Antigen (MONTY) - Final NEGATIVE FOR FLU A AND B ANTIGEN.... Complete Administered Medications Medications (Trade) Dose Ordered Sig/Javier Route PRN Reason Start Time Stop Time Status Last Admin Dose Admin Sodium Chloride (NS Flush) 2 ml BID IV FLUSH 05/22/17 21:00 05/24/17 12:31 Ondansetron HCl (Zofran Inj) 4 mg Q6H PRN IVP NAUSEA OR VOMITING 05/22/17 13:45 05/24/17 02:19 Guaifenesin (Mucinex Er) 1,200 mg BID PO 05/22/17 14:30 05/25/17 08:44 Folic Acid (Folate) 1 mg DAILY PO 05/23/17 09:00 05/25/17 08:44 Filgrastim (Neupogen Inj) 480 mcg DAILY@14 SQ 05/22/17 18:00 05/24/17 12:30 Hydromorphone HCl (Dilaudid) 2 mg Q4H PRN PO PAIN SCALE 4 TO 7 05/22/17 19:45 05/24/17 10:08 Heparin Sodium (Porcine) (Heparin Central Flush) 250 units UNSCH PRN IV FLUSH SEE PROTOCOL TABLE 05/23/17 05:30 05/23/17 05:59 Alteplase, Recombinant (Cathflo Activase Inj) 2 mg Q2H PRN INTRACATH clotted catheter 05/23/17 10:00 05/23/17 10:42 Finasteride (Proscar) 5 mg DAILY PO 05/23/17 11:00 05/25/17 08:44 Tamsulosin HCl (Flomax) 0.4 mg DAILY PO 05/23/17 11:00 05/25/17 08:44 Albuterol/ Ipratropium (Duoneb Neb) 1 ampule BID NEB INH 05/23/17 13:00 05/25/17 08:44 Megestrol Acetate (Megace Liq) 400 mg DAILY PO 05/24/17 09:00 05/25/17 08:44 Diltiazem HCl 125 mg/Sodium Chloride 125 ml @ 5 mls/hr TITRATE PRN IV Tachycardia 05/23/17 18:30 05/24/17 02:19 Metoprolol Tartrate (Lopressor) 25 mg Q8HR PO 05/23/17 22:00 05/25/17 06:06 Pantoprazole Sodium (Protonix Inj) 40 mg Q24H IV PUSH 05/24/17 12:00 05/24/17 12:24 Diltiazem HCl (Cardizem) 60 mg Q6HR PO 05/24/17 12:00 05/25/17 06:06 Amiodarone HCl (Cordarone) 200 mg DAILY PO 05/25/17 09:00 05/25/17 08:40 Lactobacillus Acidophilus (Lactinex) 1 tab Q12HR PO 05/24/17 21:00 05/25/17 08:44 Sodium Chloride 1,000 ml @ 70 mls/hr [id number] IV 05/25/17 09:00 05/25/17 08:51 Objective Remarks GENERAL: Older gentleman resting in bed in no obvious distress SKIN: Warm and dry. Port in place, left chest wall HEAD: Normocephalic. EYES: No injection or drainage. NECK: Supple, trachea midline. CARDIOVASCULAR: + S1/S2. RESPIRATORY: Occasional rhonchi anteriorly. GASTROINTESTINAL: Abdomen is less protuberant than yesterday. Soft and nontender. EXTREMITIES: No cyanosis NEUROLOGICAL: Awake, alert, normal speech. Moving all extremities. Assessment/Plan Assessment 76y/o male with metastatic NSCLC admitted with chemotherapy induced neutropenia , worsening pleural effusion, worsened renal insufficiency and hypotension. --s/ p thoracentesis. h/o COPD Chronic pain Chronic tobacco use Metastatic [id number] lung cancer adenocarcinoma Histology. Chronic renal insufficiency Chronic anemia Plan 1. Clinically patient somewhat improved today 2. He continues to have significant cytopenias; he is status post 3 doses of Neupogen so far and continues to be afebrile. 3. Monitor CBC and transfuse as needed. 4. Continue physical therapy, supportive care. Attending Statement The exam, history, and the medical decision-making described in the above note were completed with the assistance of the mid-level provider. I reviewed and agree with the findings presented. I attest that I had a [id number] encounter with the patient on the same day, and personally performed and documented my assessment and findings in the medical record. he remains frail and cytopenias are persistent. he is in sinus rhythm. he is not in pain and has been on a Duragesic patch. will reorder. will continue neupogen and follow counts. He may need transfusion tomorrow Leslie Nowak May 25, 2017 11:46 Andrés Parra MD May 25, 2017 16:57
[2017-05-25] MEDS: FILGRASTIM 480 MCG/1.6 ML VIAL SQ SCH (13:42)
[2017-05-25] MEDS: PANTOPRAZOLE SODIUM 40 MG VIAL IV PUSH SCH (13:43)
[2017-05-25] MEDS ORDERED: fentaNYL 25 MCG/HR PATCH T-DERMAL SCH (17:00)
[2017-05-25] MEDS: HYDROmorphone HCL 2 MG TAB PO PRN (18:16)
[2017-05-26] VITALS (26 sets, daily range): BP systolic 100–121; BP diastolic 50–63; PULSE 92–108; RESP 16–18; TEMP 98.1–99.5; O2SAT 96–100
[2017-05-26] MEDS: DILTIAZEM HCL 60 MG TAB PO SCH ×4 (00:27→16:33)
[2017-05-26] MEDS: SODIUM CHLORIDE 0.9% FLUSH 10 ML FLUSH IV FLUSH PRN ×4 (04:44→06:28)
[2017-05-26 05:38] LABS: HEMATOCRIT 22.3 % (39.0-51.0); HEMOGLOBIN 7.6 GM/DL (13.0-17.0); MEAN CELL VOLUME 91.7 FL (80.0-100.0); MEAN CORPUSCULAR HEMOGLOBIN 31.3 PG (27.0-34.0); MEAN CORPUSCULAR HGB CONC 34.2 % (32.0-36.0); RED BLOOD COUNT 2.43 MIL/MM3 (4.50-5.90); RED CELL DISTRIBUTION WIDTH 12.8 % (11.6-17.2); WHITE BLOOD COUNT 0.4 TH/MM3 (4.0-11.0)
[2017-05-26 05:42] LABS: INTERNATIONAL NORMALIZED RATIO 1.1 RATIO; PROTHROMBIN TIME - PATIENT 11.5 SEC (9.8-11.6)
[2017-05-26 05:53] LABS: BICARBONATE 15.4 MEQ/L (21.0-32.0); CALCIUM 8.1 MG/DL (8.5-10.1); CREATININE 1.53 MG/DL (0.60-1.30)
[2017-05-26 05:57] LABS: PLATELET COUNT 5 TH/MM3 (150-450)
[2017-05-26] MEDS: METOPROLOL TARTRATE 25 MG TAB PO SCH ×3 (06:05→21:24)
[2017-05-26] MEDS: RESP: ALBUTEROL 2.5 MG/IPRATROPIUM 0.5 MG NEB (SCH) INH ×2 (07:09→20:34)
[2017-05-26] MEDS ORDERED: ACETAMINOPHEN 325 MG TAB PO PRN (07:30)
[2017-05-26] MEDS ORDERED: SODIUM CHLOR 0.9% 250 ML INJ 250 ML IV ONE ×2 (07:30→15:00)
[2017-05-26] MEDS ORDERED: diphenhydrAMINE HCL 25 MG CAP PO PRN (07:30)
--- NOTE | 2017-05-26 08:15 | HHI.PR ---
Subjective Remarks He is in bed, appears chronically ill. Says he doesn't feel well however cannot specify. Short of breath and with generalized weakness. No fever or chills. No nausea or vomiting no diarrhea or constipation. He was not able to eat anything today he has no appetite. No abdominal pain. He is not coughing. Objective Vitals Vital Signs Date Time Temp Pulse Resp B/P (MAP) Pulse Ox O2 Delivery O2 Flow Rate FiO2 05/26/17 07:20 95 05/26/17 07:09 97 21 05/26/17 06:10 106 05/26/17 06:04 108 118/62 (80) 05/26/17 05:13 106 05/26/17 04:09 18 05/26/17 04:04 96 05/26/17 03:38 98.4 98 18 109/61 (77) 97 05/26/17 03:11 102 05/26/17 03:10 Room Air 05/26/17 02:05 99 05/26/17 01:03 97 05/26/17 00:19 98.4 92 18 100/51 (67) 98 05/26/17 00:04 96 05/25/17 23:10 Room Air 05/25/17 23:06 94 05/25/17 22:02 96 05/25/17 21:33 106 106/52 (70) 98 05/25/17 20:50 98 05/25/17 20:00 120 05/25/17 19:55 97.8 118 16 119/49 (72) 97 05/25/17 19:38 110 05/25/17 19:37 120 05/25/17 17:41 97.2 117 16 133/54 (80) 98 05/25/17 15:00 80 05/25/17 13:40 98.8 123 14 129/66 (87) 98 05/25/17 12:00 123 05/25/17 08:46 95 21 I/O 05/25/17 05/25/17 05/25/17 05/26/17 05/26/17 05/26/17 07:00 15:00 23:00 07:00 15:00 23:00 Intake Total 720 ml 3480 ml 1465 ml Output Total 600 ml Balance 720 ml 3480 ml 865 ml Intake Oral 720 ml 1640 ml 1000 ml IV Total 1840 ml 465 ml Output Urine Total 600 ml # Voids 3 5 1 # Bowel Movements 3 3 2 Result Diagram: 05/26/175 05/26/17 0445 Imaging Last Impressions Abdomen X-Ray 05/24/17 0000 Signed Impressions: Service Date/Time: Wednesday, May 24, 2017 15:55 - CONCLUSION: Nonspecific bowel gas pattern with moderately distended loops of small bowel in the left upper quadrant. Most likely to represent ileus. Gerald Preciado MD Venous Access Device Injection 05/23/17 0000 Signed Impressions: Service Date/Time: Tuesday, May 23, 2017 17:18 - CONCLUSION: 1. Port catheter and tubing are intact. 2. Port tip projects over the central venous system. There appears to be a persistent fibrin sheath at the catheter tip despite recent TPA infusion. Derek Davis MD Chest X-Ray 05/22/17 1223 Signed Impressions: Service Date/Time: April 12:41 - CONCLUSION: Increase in size of right pleural effusion and the right lung base consolidation and/or compressive collapse. Nino Brunner MD Thoracentesis Ultrasound 05/22/17 0000 Signed Impressions: Service Date/Time: April 14:56 - CONCLUSION: Uncomplicated ultrasound guided right thoracentesis. Sampling was not requested. Quinn Huang Jr., MD Abdomen/Pelvis CT 05/22/17 0000 Signed Impressions: Service Date/Time: April 13:32 - CONCLUSION: 1. Diffuse metastatic disease to the visualized bony structures, left adrenal gland, and visualized lung parenchyma. Special note is made of destructive lesions involving the T10 and L1 levels that involve the left neural foramen and could be possible source of the left radiculopathy. 2. Large right-sided pleural effusion. 3. Prior cholecystectomy. Quinn Huang Jr., MD Objective Remarks GENERAL: in NAD CARDIOVASCULAR: Tachycardic in the 110s rate and rhythm without murmurs, gallops , or rubs. RESPIRATORY: Decreased breath sounds in the right lower area. Otherwise clear to auscultation. Dressing in place on the right side. No accessory muscle use. GASTROINTESTINAL: Abdomen soft,neg TTP, nondistended. Negative for any peritoneal signs. MUSCULOSKELETAL: No cyanosis, or edema. BACK: Nontender without obvious deformity. No CVA tenderness. 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 Chest x-ray shows right-sided pleural effusion that was reviewed by me. -Status post therapeutic thoracentesis on 05/22 by IR. -Drastic improvement in his respiratory after thoracentesis. Financial Reporting Analyst Dr. Young consulted stated that patient is stable can follow up as outpatient. Paroxysmal atrial fibrillation with RVR -Rate better control. Status post Cardizem drip and amiodarone drip. -Now on Cardizem and amiodarone by mouth. Per rn orthopedic would attempt to eventually wean off amiodarone in the next 1-2 weeks. Patient is also not candidate for anticoagulation or aspirin due to thrombocytopenia. On discharge Cardizem can be changed to long-acting. -Echo reviewed with EF of 60-65%. Non-small cell lung cancer with metastases to the bone -Dr. Gregorio consulted and following. Pancytopenia secondary to chemotherapy -Status post chemotherapy on Friday -Oncologist managing. - Continue Neupogen -Transfusion per oncologist. Hypotension on admission. -Review labs. Patient is third spacing with low albumin. Decrease oral intake along with diarrhea. -Improved on IV fluids. Status post albumin given. -Resolved. Hypernatremia -Patient has decreased oral intake and he has been on normal saline. Will change fluids to half-normal saline. Continue to trend and monitor sodium. Diarrhea -Mostly secondary to chemotherapy. C. difficile negative. -Reviewed CT scan of the abdomen which shows metastases to the bones, left adrenal gland, and lungs. -on Lactinex. Abdominal pain -Today abdominal pain resolved. Pain was more in the epigastric area. -Patient on Protonix. -KUB on 05/24 shows ileus. Patient is asymptomatic. Education given to patient that ileus most likely secondary to pain medication in which patient is in a difficult situation since since does have metastases to the bones. Acute on chronic pain secondary to metastatic disease -Pain medication adjusted by oncologist. Patient now on PO Dilaudid. Acute on chronic renal failure -Patient was recently taken off of ibuprofen due to worsening renal function. -Most likely secondary to combination of hypotension and ibuprofen use. Not recommend NSAID use. - Urologist was consulted and stated very unlikely due to BPH. Patient was started on Flomax and Proscar. -Chronic continues to improve. Avoid nephrotoxins. Continue trend creatinine and strict ins and outs. Hypertension -Patient on multiple medication due to age fibrillation with RVR. Failure to thrive -Secondary to cancer and chemotherapy treatment. -On Megace. Dietitian consulted. Tobacco dependence -Patient has decreased amount of cigarettes he is smoking. Smoking cessation. DVT prophylaxis -Chemoprophylaxis held secondary to anticipating thoracentesis. Discharge Planning Poor prognosis. Once rate is controlled on oral medication and cleared by oncologist patient can be discharged to home. Cris Chappell MD May 26, 2017 08:15
[2017-05-26 08:18] LABS: DOHLE BODIES PRESENT (NONE SEEN)
[2017-05-26 08:20] LABS: HELMET CELLS OCC (NORMAL); ROULEAUX PRESENT (NORMAL)
[2017-05-26 08:25] LABS: BANDS 16 % (0-6); LYMPHOCYTES 28 % (9-44); METAMYELOCYTES 3 % (0-1); MYELOCYTES 3 % (0-0); NEUTROPHIL # MANUAL DIFF 0.3 TH/MM3 (1.8-7.7); POLYS (SEG NEUTROPHILS) 47 % (16-70)
[2017-05-26] MEDS: SODIUM CHLORIDE 0.9% FLUSH 10 ML FLUSH IV FLUSH SCH ×2 (09:00→21:25)
[2017-05-26] MEDS: UMECLIDINIUM 62.5 MCG/VILANTEROL 25 MCG INHALER INH SCH (09:00)
[2017-05-26] MEDS: FOLIC ACID 1 MG TAB PO SCH (09:17)
[2017-05-26] MEDS: MEGESTROL ACETATE SUSP 400 MG/10 ML CUP PO SCH (09:17)
[2017-05-26] MEDS: LACTOBACILLUS ACIDOPHILUS TAB PO SCH ×2 (09:18→21:25)
[2017-05-26] MEDS: AMIODARONE 200 MG TAB PO SCH (09:18)
[2017-05-26] MEDS: TAMSULOSIN HCL 0.4 MG CAP PO SCH (09:18)
[2017-05-26] MEDS: FINASTERIDE 5 MG TAB PO SCH (09:18)
[2017-05-26] MEDS: guaiFENesin E.R. 600 MG TAB PO SCH ×2 (09:18→21:00)
--- NOTE | 2017-05-26 10:10 | PD.ONC.PN ---
Subjective Subjective Remarks Afebrile overnight. Patient resting in bed. "I feel awful." Patient eating very little. Objective Data Date Time Temp Pulse Resp B/P (MAP) Pulse Ox O2 Delivery O2 Flow Rate FiO2 05/26/17 09:30 98.4 97 18 121/59 98 05/26/17 09:15 98.6 99 16 113/55 100 05/26/17 07:20 95 05/26/17 07:09 97 21 05/26/17 07:00 99 Room Air 05/26/17 06:10 106 05/26/17 06:04 108 118/62 (80) 05/26/17 05:13 106 05/26/17 04:09 18 05/26/17 04:04 96 05/26/17 03:38 98.4 98 18 109/61 (77) 97 05/26/17 03:11 102 05/26/17 03:10 Room Air 05/26/17 02:05 99 05/26/17 01:03 97 05/26/17 00:19 98.4 92 18 100/51 (67) 98 05/26/17 00:04 96 05/25/17 23:10 Room Air 05/25/17 23:06 94 05/25/17 22:02 96 05/25/17 21:33 106 106/52 (70) 98 05/25/17 20:50 98 05/25/17 20:00 120 05/25/17 19:55 97.8 118 16 119/49 (72) 97 05/25/17 19:38 110 05/25/17 19:37 120 05/25/17 17:41 97.2 117 16 133/54 (80) 98 05/25/17 15:00 80 05/25/17 13:40 98.8 123 14 129/66 (87) 98 05/25/17 12:00 123 05/26/17 05/26/17 05/26/17 07:00 15:00 23:00 Intake Total 1465 ml 15 ml Output Total 600 ml Balance 865 ml 15 ml Result Diagram: 05/26/1744405/26/17444 Laboratory Results Laboratory Tests Test 05/26/17 04:45 White Blood Count 0.4 TH/MM3 Red Blood Count 2.43 MIL/MM3 Hemoglobin 7.6 GM/DL Hematocrit 22.3 % Mean Corpuscular Volume 91.7 FL Mean Corpuscular Hemoglobin 31.3 PG Mean Corpuscular Hemoglobin Concent 34.2 % Red Cell Distribution Width 12.8 % Platelet Count 5 TH/MM3 Mean Platelet Volume 9.0 FL CBC Comment AUTO DIFF Differential Total Cells Counted 32 Neutrophils % (Manual) 47 % Band Neutrophils % 16 % Lymphocytes % 28 % Eosinophils % 3 % Neutrophils # (Manual) 0.3 TH/MM3 Metamyelocytes 3 % Myelocytes 3 % Differential Comment FINAL DIFF MANUAL Dohle Bodies PRESENT Platelet Estimate RARE Platelet Morphology Comment NORMAL Helmet Cells OCC Rouleau PRESENT Prothrombin Time 11.5 SEC Prothromb Time International Ratio 1.1 RATIO Activated Partial Thromboplast Time 27.1 SEC Fibrinogen 416 mg/dL Blood Urea Nitrogen 79 MG/DL Creatinine 1.53 MG/DL Random Glucose 146 MG/DL Calcium Level 8.1 MG/DL Sodium Level 154 MEQ/L Potassium Level 3.0 MEQ/L Chloride Level 130 MEQ/L Carbon Dioxide Level 15.4 MEQ/L Anion Gap 9 MEQ/L Estimat Glomerular Filtration Rate 45 ML/MIN Culture Results Microbiology Date/Time Source Procedure Growth Status 05/24/17 17:15 Nasal Washing Influenza Types A,B Antigen (MONTY) - Final NEGATIVE FOR FLU A AND B ANTIGEN.... Complete Administered Medications Medications (Trade) Dose Ordered Sig/Javier Route PRN Reason Start Time Stop Time Status Last Admin Dose Admin Sodium Chloride (NS Flush) 2 ml UNSCH PRN IV FLUSH FLUSH AFTER USING IV ACCESS 05/22/17 13:45 05/26/17 06:28 Sodium Chloride (NS Flush) 2 ml BID IV FLUSH 05/22/17 21:00 05/26/17 09:00 Ondansetron HCl (Zofran Inj) 4 mg Q6H PRN IVP NAUSEA OR VOMITING 05/22/17 13:45 05/24/17 02:19 Guaifenesin (Mucinex Er) 1,200 mg BID PO 05/22/17 14:30 05/26/17 09:18 Folic Acid (Folate) 1 mg DAILY PO 05/23/17 09:00 05/26/17 09:17 Filgrastim (Neupogen Inj) 480 mcg DAILY@14 SQ 05/22/17 18:00 05/25/17 13:42 Hydromorphone HCl (Dilaudid) 2 mg Q4H PRN PO PAIN SCALE 4 TO 7 05/22/17 19:45 05/25/17 18:16 Heparin Sodium (Porcine) (Heparin Central Flush) 250 units UNSCH PRN IV FLUSH SEE PROTOCOL TABLE 05/23/17 05:30 05/23/17 05:59 Sodium Chloride (NS Flush) 5 ml UNSCH PRN IV FLUSH FLUSH AFTER USING IV ACCESS 05/23/17 05:30 05/26/17 06:28 Alteplase, Recombinant (Cathflo Activase Inj) 2 mg Q2H PRN INTRACATH clotted catheter 05/23/17 10:00 05/23/17 10:42 Finasteride (Proscar) 5 mg DAILY PO 05/23/17 11:00 05/26/17 09:18 Tamsulosin HCl (Flomax) 0.4 mg DAILY PO 05/23/17 11:00 05/26/17 09:18 Albuterol/ Ipratropium (Duoneb Neb) 1 ampule BID NEB INH 05/23/17 13:00 05/26/17 07:09 Megestrol Acetate (Megace Liq) 400 mg DAILY PO 05/24/17 09:00 05/26/17 09:17 Diltiazem HCl 125 mg/Sodium Chloride 125 ml @ 5 mls/hr TITRATE PRN IV Tachycardia 05/23/17 18:30 05/24/17 02:19 Metoprolol Tartrate (Lopressor) 25 mg Q8HR PO 05/23/17 22:00 05/26/17 06:05 Pantoprazole Sodium (Protonix Inj) 40 mg Q24H IV PUSH 05/24/17 12:00 05/25/17 13:43 Diltiazem HCl (Cardizem) 60 mg Q6HR PO 05/24/17 12:00 05/26/17 06:05 Amiodarone HCl (Cordarone) 200 mg DAILY PO 05/25/17 09:00 05/26/17 09:18 Lactobacillus Acidophilus (Lactinex) 1 tab Q12HR PO 05/24/17 21:00 05/26/17 09:18 Sodium Chloride 1,000 ml @ 70 mls/hr [id number] IV 05/25/17 09:00 05/25/17 21:39 Fentanyl (Duragesic 25 Mcg Patch.72 Hr) 1 patch Q3D T-DERMAL 05/25/17 17:00 05/25/17 17:44 Sodium Chloride 250 ml @ 15 mls/hr ONCE ONCE IV 05/26/17 07:30 05/27/17 00:09 05/26/17 07:30 Acetaminophen (Tylenol) 650 mg Q4H PRN PO SEE LABEL COMMENTS 05/26/17 07:30 05/26/17 23:59 05/26/17 09:17 Diphenhydramine HCl (Benadryl) 25 mg Q4H PRN PO SEE LABEL COMMENTS 05/26/17 07:30 05/26/17 23:59 05/26/17 09:17 Objective Remarks GENERAL: Elderly male, sitting up in bed. SKIN: Warm and dry. port in place, left chest wall HEAD: Normocephalic. EYES: No injection or drainage. NECK: Supple, trachea midline. CARDIOVASCULAR: IRR RESPIRATORY: diminished at bases, scattered rhonchi. GASTROINTESTINAL: Abdomen soft, non-tender, nondistended. EXTREMITIES: No cyanosis NEUROLOGICAL: awake, alert, moving extremities. Assessment/Plan Problem List: (1) Neutropenia ICD Codes: D70.9 - Neutropenia, unspecified Status: Acute Plan: --on Neupogen, monitor for fever (2) Lung cancer ICD Codes: C34.90 - Malignant neoplasm of unspecified part of unspecified bronchus or lung Status: Acute Plan: --will plan further treatment outpatient once recovered from current hospitalization. History: -- found to have a large pleural based mass in the medial aspect of the right upper lobe with bony metastatic disease. --CT/PET scan shows evidence of metastatic disease to the left adrenal gland in addition to a right pleural effusion and questionable solitary metastatic lesion to the liver. --Biopsy showed a poorly differentiated non-small cell lung cancer, adenocarcinoma histology. EGFR, ALK, PD-L1 are still pending. --was offered palliative chemotherapy with carboplatin and Alimta on April. Neulasta was requested through his insurance company, but was denied given that the stated risk of neutropenic fever associated with Alimta and carboplatin is only 5%. (3) Pain ICD Codes: R52 - Pain, unspecified Plan: --on TD Fentanyl + PO Dilaudid for breakthrough pain. Pain: --CT abdomen and pelvis showed diffuse mets to the bony structures and a destructive lesion at T10 and 11 that is probably a source of his radiculopathy. other sites are being targeted with radiation. (4) Pleural effusion ICD Codes: J90 - Pleural effusion, not elsewhere classified Status: Acute Plan: --s/p thoracentesis. (5) Renal insufficiency ICD Codes: N28.9 - Disorder of kidney and ureter, unspecified (6) Hypernatremia ICD Codes: E87.0 - Hyperosmolality and hypernatremia Assessment 76y/o male with metastatic NSCLC admitted with chemotherapy induced neutropenia , worsening pleural effusion, worsened renal insufficiency and hypotension. --s/ p thoracentesis. h/o COPD Chronic pain Chronic tobacco use Metastatic tcn-howhx-losa lung cancer adenocarcinoma Histology. Chronic renal insufficiency Chronic anemia Plan 1. continue Neupogen 2. monitor CBC, give 1unit platelets. 3. continue physical therapy. 4. discontinue Fentanyl, daughter in law is concerned this medication is making patient fatigued and confused and I agree with her. This afternoon patient pulled off his IV and tele; will d/c Fentanyl patch; will continue PRN dilaudid. Attending Statement As discussed above. Events over weekend discussed w/ Dr. Parra. Problem Qualifiers (1) Neutropenia: Qualified Codes: D70.9 - Neutropenia, unspecified (2) Lung cancer: Qualified Codes: C34.90 - Malignant neoplasm of unspecified part of unspecified bronchus or lung Rosalinda Milian May 26, 2017 10:10 Tavia Gregorio MD May 26, 2017 23:41
--- NOTE | 2017-05-26 12:05 | PD.CARD.PN ---
Subjective Subjective Remarks Patient feeling worse today, weak/fatigued Heart rates better controlled 90-100 Objective Medications Current Medications Medications (Trade) Dose Ordered Sig/Javier Route Start Time Stop Time Status Last Admin (NS Flush) 2 ml UNSCH PRN IV FLUSH 05/22/17 13:45 05/26/17 06:28 (NS Flush) 2 ml BID IV FLUSH 05/22/17 21:00 05/26/17 09:00 (Tylenol) 650 mg Q4H PRN PO 05/22/17 13:45 (Zofran Inj) 4 mg Q6H PRN IVP 05/22/17 13:45 05/24/17 02:19 (Narcan Inj) 0.4 mg UNSCH PRN IV PUSH 05/22/17 13:45 (Mucinex Er) 1,200 mg BID PO 05/22/17 14:30 05/26/17 09:18 (Folate) 1 mg DAILY PO 05/23/17 09:00 05/26/17 09:17 ([place] 5-325 Mg) 1 tab Q4H PRN PO 05/22/17 14:45 Future Hold (Neupogen Inj) 480 mcg DAILY@14 SQ 05/22/17 18:00 05/25/17 13:42 ([place] 10-325 Mg) 1 tab Q4H PRN PO 05/22/17 18:45 Future Hold (Morphine Inj) 2 mg Q4H PRN IV PUSH 05/22/17 18:45 (Dilaudid) 2 mg Q4H PRN PO 05/22/17 19:45 05/25/17 18:16 (Heparin Central Flush) 250 units UNSCH PRN IV FLUSH 05/23/17 05:30 05/23/17 05:59 (Heparin Central Flush) 500 units UNSCH IV FLUSH 05/23/17 05:30 (NS Flush) 5 ml UNSCH PRN IV FLUSH 05/23/17 05:30 05/26/17 06:28 (Cathflo Activase Inj) 2 mg Q2H PRN INTRACATH 05/23/17 10:00 05/23/17 10:42 (Proscar) 5 mg DAILY PO 05/23/17 11:00 05/26/17 09:18 (Flomax) 0.4 mg DAILY PO 05/23/17 11:00 05/26/17 09:18 (Duoneb Neb) 1 ampule BID NEB INH 05/23/17 13:00 05/26/17 07:09 (Duoneb Neb) 1 ampule Q6HR NEB PRN INH 05/23/17 13:00 (Megace Liq) 400 mg DAILY PO 05/24/17 09:00 05/26/17 09:17 Diltiazem HCl 125 mg/Sodium Chloride 125 ml @ 5 mls/hr TITRATE PRN IV 05/23/17 18:30 05/24/17 02:19 (Lopressor) 25 mg Q8HR PO 05/23/17 22:00 05/26/17 06:05 (Protonix Inj) 40 mg Q24H IV PUSH 05/24/17 12:00 05/25/17 13:43 (Cardizem) 60 mg Q6HR PO 05/24/17 12:00 05/26/17 06:05 (Cordarone) 200 mg DAILY PO 05/25/17 09:00 05/26/17 09:18 (Lactinex) 1 tab Q12HR PO 05/24/17 21:00 05/26/17 09:18 Sodium Chloride 1,000 ml @ 70 mls/hr [id number] IV 05/25/17 09:00 05/25/17 21:39 (Duragesic 25 Mcg Patch.72 Hr) 1 patch Q3D T-DERMAL 05/25/17 17:00 05/25/17 17:44 Miscellaneous Information 1 Q3D T-DERMAL 05/28/17 17:00 Sodium Chloride 250 ml @ 15 mls/hr ONCE ONCE IV 05/26/17 07:30 05/27/17 00:09 05/26/17 07:30 (Tylenol) 650 mg Q4H PRN PO 05/26/17 07:30 05/26/17 23:59 05/26/17 09:17 (Benadryl) 25 mg Q4H PRN PO 05/26/17 07:30 05/26/17 23:59 05/26/17 09:17 Vital Signs / I&O Vital Signs Date Time Temp Pulse Resp B/P (MAP) Pulse Ox O2 Delivery O2 Flow Rate FiO2 05/26/17 10:18 18 05/26/17 09:58 108 05/26/17 09:45 98.8 103 16 115/53 99 05/26/17 09:30 98.4 97 18 121/59 98 05/26/17 09:15 98.6 99 16 113/55 100 05/26/17 09:00 97 05/26/17 08:00 102 05/26/17 08:00 99.5 102 16 114/50 (71) 99 05/26/17 07:20 95 05/26/17 07:09 97 21 05/26/17 07:00 99 Room Air 05/26/17 06:10 106 05/26/17 06:04 108 118/62 (80) 05/26/17 05:13 106 05/26/17 04:09 18 05/26/17 04:04 96 05/26/17 03:38 98.4 98 18 109/61 (77) 97 05/26/17 03:11 102 05/26/17 03:10 Room Air 05/26/17 02:05 99 05/26/17 01:03 97 05/26/17 00:19 98.4 92 18 100/51 (67) 98 05/26/17 00:04 96 05/25/17 23:10 Room Air 05/25/17 23:06 94 05/25/17 22:02 96 05/25/17 21:33 106 106/52 (70) 98 05/25/17 20:50 98 05/25/17 20:00 120 05/25/17 19:55 97.8 118 16 119/49 (72) 97 05/25/17 19:38 110 05/25/17 19:37 120 05/25/17 17:41 97.2 117 16 133/54 (80) 98 05/25/17 15:00 80 05/25/17 13:40 98.8 123 14 129/66 (87) 98 I/O 05/25/17 05/25/17 05/25/17 05/26/17 05/26/17 05/26/17 07:00 15:00 23:00 07:00 15:00 23:00 Intake Total 720 ml 3480 ml 1465 ml 396 ml Output Total 600 ml Balance 720 ml 3480 ml 865 ml 396 ml Intake Oral 720 ml 1640 ml 1000 ml IV Total 1840 ml 465 ml Platelets 368 ml Blood Product IV Normal Saline Flush 28 ml Output Urine Total 600 ml # Voids 3 5 1 # Bowel Movements 3 3 2 Physical Exam GENERAL: NAD, AAOx3 SKIN: Warm and dry. HEAD: Atraumatic. Normocephalic. EYES: Pupils equal and round. No scleral icterus. No injection or drainage. ENT: No nasal bleeding or discharge. Mucous membranes pink and moist. NECK: Trachea midline. No JVD. CARDIOVASCULAR: Irregularly irregular RESPIRATORY: No accessory muscle use. Clear to auscultation. Breath sounds equal bilaterally. GASTROINTESTINAL: Abdomen soft, non-tender, nondistended. Hepatic and splenic margins not palpable. MUSCULOSKELETAL: Extremities without clubbing, cyanosis, or edema. No obvious deformities. NEUROLOGICAL: Awake and alert. No obvious cranial nerve deficits. Motor grossly within normal limits. Five out of 5 muscle strength in the arms and legs. Normal speech. PSYCHIATRIC: Appropriate mood and affect; insight and judgment normal. Laboratory Laboratory Tests Test 05/26/17 04:45 White Blood Count 0.4 TH/MM3 Red Blood Count 2.43 MIL/MM3 Hemoglobin 7.6 GM/DL Hematocrit 22.3 % Mean Corpuscular Volume 91.7 FL Mean Corpuscular Hemoglobin 31.3 PG Mean Corpuscular Hemoglobin Concent 34.2 % Red Cell Distribution Width 12.8 % Platelet Count 5 TH/MM3 Mean Platelet Volume 9.0 FL CBC Comment AUTO DIFF Differential Total Cells Counted 32 Neutrophils % (Manual) 47 % Band Neutrophils % 16 % Lymphocytes % 28 % Eosinophils % 3 % Neutrophils # (Manual) 0.3 TH/MM3 Metamyelocytes 3 % Myelocytes 3 % Differential Comment FINAL DIFF MANUAL Dohle Bodies PRESENT Platelet Estimate RARE Platelet Morphology Comment NORMAL Helmet Cells OCC Rouleau PRESENT Prothrombin Time 11.5 SEC Prothromb Time International Ratio 1.1 RATIO Activated Partial Thromboplast Time 27.1 SEC Fibrinogen 416 mg/dL Blood Urea Nitrogen 79 MG/DL Creatinine 1.53 MG/DL Random Glucose 146 MG/DL Calcium Level 8.1 MG/DL Sodium Level 154 MEQ/L Potassium Level 3.0 MEQ/L Chloride Level 130 MEQ/L Carbon Dioxide Level 15.4 MEQ/L Anion Gap 9 MEQ/L Estimat Glomerular Filtration Rate 45 ML/MIN Assessment and Plan Problem List: (1) Paroxysmal A-fib ICD Codes: I48.0 - Paroxysmal atrial fibrillation (2) Lung cancer ICD Codes: C34.90 - Malignant neoplasm of unspecified part of unspecified bronchus or lung Status: Acute (3) Pleural effusion ICD Codes: J90 - Pleural effusion, not elsewhere classified Status: Acute (4) Neutropenia ICD Codes: D70.9 - Neutropenia, unspecified Status: Acute (5) Weakness generalized ICD Codes: R53.1 - Weakness Status: Acute (6) Renal insufficiency ICD Codes: N28.9 - Disorder of kidney and ureter, unspecified (7) Pain ICD Codes: R52 - Pain, unspecified Assessment and Plan 1) Afib with RVR Now more controlled, con't Cardizem/Amiodarone PO If further episodes of Afib with RVR, may need to increase medications but will have to watch with blood pressure Would attempt to eventually wean off Amiodarone if possible over next 1-2 weeks, would prefer not to stay on [facility] long term care Cardizem can be changed to long acting on discharge Not a candidate for anti-coagulation, not a candidate for ASA 2) EF 60-65% 3) Lung cancer with mets per Heme/Onc 4) Pancytopenia secondary to chemotherapy Problem Qualifiers (1) Lung cancer: Qualified Codes: C34.90 - Malignant neoplasm of unspecified part of unspecified bronchus or lung (2) Neutropenia: Qualified Codes: D70.9 - Neutropenia, unspecified Louie Fox DO May 26, 2017 12:05
[2017-05-26] MEDS: PANTOPRAZOLE SODIUM 40 MG VIAL IV PUSH SCH (12:27)
[2017-05-26] MEDS: SODIUM CHLOR 0.45% 1000 ML INJ 1,000 ML IV SCH (12:27)
[2017-05-26] MEDS: HYDROmorphone HCL 2 MG TAB PO PRN ×2 (12:27→16:34)
[2017-05-26] MEDS: FILGRASTIM 480 MCG/1.6 ML VIAL SQ SCH (12:28)
[2017-05-27] VITALS (26 sets, daily range): BP systolic 96–138; BP diastolic 54–75; PULSE 100–132; RESP 16–32; TEMP 97.3–101.1; O2SAT 94–100
[2017-05-27] MEDS: DILTIAZEM HCL 60 MG TAB PO SCH ×4 (00:33→19:47)
[2017-05-27] MEDS: SODIUM CHLOR 0.45% 1000 ML INJ 1,000 ML IV SCH (03:54)
[2017-05-27] MEDS: METOPROLOL TARTRATE 25 MG TAB PO SCH ×3 (04:55→22:51)
[2017-05-27 05:09] LABS: MEAN CELL VOLUME 91.7 FL (80.0-100.0); MEAN CORPUSCULAR HEMOGLOBIN 31.3 PG (27.0-34.0); MEAN CORPUSCULAR HGB CONC 34.2 % (32.0-36.0); MEAN PLATELET VOLUME 8.5 FL (7.0-11.0); RED BLOOD COUNT 2.22 MIL/MM3 (4.50-5.90); RED CELL DISTRIBUTION WIDTH 12.9 % (11.6-17.2); WHITE BLOOD COUNT 0.3 TH/MM3 (4.0-11.0)
[2017-05-27 05:15] LABS: HEMATOCRIT 20.4 % (39.0-51.0); PLATELET COUNT 3 TH/MM3 (150-450)
[2017-05-27 05:49] LABS: ALBUMIN 1.9 GM/DL (3.4-5.0); ALKALINE PHOSPHATASE 42 U/L (45-117); ALT (GPT) 46 U/L (12-78); AST (GOT) 12 U/L (15-37); BICARBONATE 15.4 MEQ/L (21.0-32.0); BLOOD UREA NITROGEN 65 MG/DL (7-18); CALCIUM 7.9 MG/DL (8.5-10.1); CHLORIDE 127 MEQ/L (98-107); CREATININE 1.54 MG/DL (0.60-1.30); GLOMERULAR FILTRATION RATE 44 ML/MIN (>89); GLUCOSE,RANDOM 133 MG/DL (74-106); MAGNESIUM 2.4 MG/DL (1.5-2.5); SODIUM (NA) 155 MEQ/L (136-145); TOTAL BILIRUBIN ADULT 0.5 MG/DL (0.2-1.0); TOTAL PROTEIN 4.6 GM/DL (6.4-8.2)
[2017-05-27] MEDS ORDERED: POTASSIUM CHLOR 20 MEQ PREMIX 100 ML IV ONE (06:00)
[2017-05-27] MEDS: RESP: ALBUTEROL 2.5 MG/IPRATROPIUM 0.5 MG NEB (SCH) INH (07:45)
[2017-05-27] MEDS ORDERED: DEXTROSE 5% IN WATE 1000ML INJ 1,000 ML IV SCH (07:45)
[2017-05-27] MEDS: HYDROmorphone HCL 2 MG TAB PO PRN ×2 (07:47→19:48)
[2017-05-27] MEDS ORDERED: D5W + KCL 20 MEQ INJ 1,000 ML IV SCH (08:15)
[2017-05-27] MEDS: guaiFENesin E.R. 600 MG TAB PO SCH ×2 (08:46→22:51)
[2017-05-27] MEDS: UMECLIDINIUM 62.5 MCG/VILANTEROL 25 MCG INHALER INH SCH (08:46)
[2017-05-27] MEDS: MEGESTROL ACETATE SUSP 400 MG/10 ML CUP PO SCH (08:46)
[2017-05-27] MEDS: LACTOBACILLUS ACIDOPHILUS TAB PO SCH ×2 (08:47→22:51)
[2017-05-27] MEDS: TAMSULOSIN HCL 0.4 MG CAP PO SCH (08:47)
[2017-05-27] MEDS: FINASTERIDE 5 MG TAB PO SCH (08:47)
[2017-05-27] MEDS: AMIODARONE 200 MG TAB PO SCH (08:47)
[2017-05-27] MEDS: FOLIC ACID 1 MG TAB PO SCH (08:55)
[2017-05-27 09:23] LABS: BANDS 21 % (0-6); LYMPHOCYTES 36 % (9-44); METAMYELOCYTES 1 % (0-1); MONOCYTES 14 % (0-8); MYELOCYTES 1 % (0-0); POLYS (SEG NEUTROPHILS) 21 % (16-70)
[2017-05-27 09:24] LABS: DOHLE BODIES PRESENT (NONE SEEN); NEUTROPHIL # MANUAL DIFF 0.1 TH/MM3 (1.8-7.7); ROULEAUX PRESENT (NORMAL); TOXIC GRANULATION 2+ (NORMAL)
[2017-05-27] MEDS: diphenhydrAMINE HCL 25 MG CAP PO PRN (10:12)
[2017-05-27] MEDS: ACETAMINOPHEN 325 MG TAB PO PRN (10:12)
--- NOTE | 2017-05-27 10:17 | RADRPT ---
EXAM DATE/TIME: 05/27/2017 07:56 CORRECTION Corrected on: May 29, 2017; This report includes an Addendum and supersedes previous reports for this exam. [facility] COMPARISON: No previous studies available for comparison. INDICATIONS : Bilateral leg pain. Thrombocytopenia. MEDICAL HISTORY : Emphysema. Benign prostatic hyperplasia, (BPH) Arthritis. Carcinoma, lung. COPD. HTN. Dyspnea. SURGICAL HISTORY : Cholecystectomy. Arthroscopic knees. Chemotherapy. ENCOUNTER: Initial ACUITY: One day PAIN SCORE: 8/10 LOCATION: Bilateral leg. TECHNIQUE: Venous ultrasound of the left and right leg was performed from the inguinal ligament to the proximal calf. Real-time, color Doppler and spectral tracing, compression and augmentation techniques were us ed. FINDINGS: RIGHT LEG: There is normal compressibility of the deep venous system from the inguinal region to the proximal ca lf. No echogenic clot is seen in the lumen of the common femoral, femoral, popliteal, and posterior tibial veins. There is a normal response of the venous system to proximal and distal augmentation an d respiration. Iliac vein patent LEFT LEG: There is normal compressibility of the deep venous system from the inguinal region to the proximal ca lf. No echogenic clot is seen in the lumen of the common femoral, femoral, popliteal, and posterior tibial veins. There is a normal response of the venous system to proximal and distal augmentation an d respiration. Iliac vein patent CONCLUSION: Negative examination. No evidence of DVT. Randolph Heart MD on May 27, 2017 at 10:13 Board Certified Radiologist. This report was verified electronically. ADDENDUM: Thrombus is present in the right greater saphenous vein. Randolph Heart MD on May 27, 2017 at 15:46 Board Certified Radiologist. This report was verified electronically. River Perdomo MD on May 29, 2017 at 11:01 Board Certified Radiologist. This report was verified electronically.
--- NOTE | 2017-05-27 10:28 | PD.ONC.PN ---
Subjective Subjective Remarks Tmax 99.7 overnight. Patient resting in bed. Remains confused. Objective Data Date Time Temp Pulse Resp B/P (MAP) Pulse Ox O2 Delivery O2 Flow Rate FiO2 05/27/17 10:07 99.7 05/27/17 10:02 104 20 128/60 98 05/27/17 07:47 98 05/27/17 06:32 98.8 101 16 114/54 99 05/27/17 06:13 99 Room Air 05/27/17 06:00 102 05/27/17 05:03 98.8 111 16 114/54 (74) 99 05/27/17 05:00 106 05/27/17 04:00 107 05/27/17 03:00 104 05/27/17 02:00 102 05/27/17 01:00 102 05/27/17 00:38 99.4 112 16 127/64 (85) 05/27/17 00:00 111 05/27/17 00:00 100 05/26/17 23:00 100 05/26/17 21:24 97 Room Air 05/26/17 21:18 98.2 104 16 118/53 (74) 97 05/26/17 21:00 104 05/26/17 20:38 97 05/26/17 20:10 105 05/26/17 18:30 20 05/26/17 16:00 98.1 95 16 114/63 (80) 96 05/26/17 16:00 95 05/26/17 15:00 96 Room Air 05/26/17 12:00 98.8 100 18 113/60 (77) 99 05/26/17 12:00 101 05/26/17 11:00 99 Room Air 05/27/17 05/27/17 05/27/17 06:59 14:59 22:59 Intake Total 880 ml 816 ml Balance 880 ml 816 ml Result Diagram: 05/27/17 0450 05/27/17 0450 Laboratory Results Laboratory Tests Test 05/27/17 04:50 White Blood Count 0.3 TH/MM3 Red Blood Count 2.22 MIL/MM3 Hemoglobin 7.0 GM/DL Hematocrit 20.4 % Mean Corpuscular Volume 91.7 FL Mean Corpuscular Hemoglobin 31.3 PG Mean Corpuscular Hemoglobin Concent 34.2 % Red Cell Distribution Width 12.9 % Platelet Count 3 TH/MM3 Mean Platelet Volume 8.5 FL CBC Comment AUTO DIFF Differential Total Cells Counted 100 Neutrophils % (Manual) 21 % Band Neutrophils % 21 % Lymphocytes % 36 % Monocytes % 14 % Eosinophils % 6 % Neutrophils # (Manual) 0.1 TH/MM3 Metamyelocytes 1 % Myelocytes 1 % Differential Comment FINAL DIFF MANUAL Toxic Granulation 2+ Dohle Bodies PRESENT Platelet Estimate RARE Platelet Morphology Comment NORMAL Rouleau PRESENT Blood Urea Nitrogen 65 MG/DL Creatinine 1.54 MG/DL Random Glucose 133 MG/DL Total Protein 4.6 GM/DL Albumin 1.9 GM/DL Calcium Level 7.9 MG/DL Magnesium Level 2.4 MG/DL Alkaline Phosphatase 42 U/L Aspartate Amino Transf (AST/SGOT) 12 U/L Alanine Aminotransferase (ALT/SGPT) 46 U/L Total Bilirubin 0.5 MG/DL Sodium Level 155 MEQ/L Potassium Level 2.7 MEQ/L Chloride Level 127 MEQ/L Carbon Dioxide Level 15.4 MEQ/L Anion Gap 13 MEQ/L Estimat Glomerular Filtration Rate 44 ML/MIN Culture Results Microbiology Date/Time Source Procedure Growth Status 05/24/17 17:15 Nasal Washing Influenza Types A,B Antigen ([facility]) - Final NEGATIVE FOR FLU A AND B ANTIGEN.... Complete Administered Medications Medications (Trade) Dose Ordered Sig/Javier Route PRN Reason Start Time Stop Time Status Last Admin Dose Admin Sodium Chloride (NS Flush) 2 ml UNSCH PRN IV FLUSH FLUSH AFTER USING IV ACCESS 05/22/17 13:45 05/26/17 06:28 Sodium Chloride (NS Flush) 2 ml BID IV FLUSH 05/22/17 21:00 05/26/17 21:25 Ondansetron HCl (Zofran Inj) 4 mg Q6H PRN IVP NAUSEA OR VOMITING 05/22/17 13:45 05/24/17 02:19 Guaifenesin (Mucinex Er) 1,200 mg BID PO 05/22/17 14:30 05/27/17 08:46 Folic Acid (Folate) 1 mg DAILY PO 05/23/17 09:00 05/27/17 08:55 Filgrastim (Neupogen Inj) 480 mcg DAILY@14 SQ 05/22/17 18:00 05/26/17 12:28 Hydromorphone HCl (Dilaudid) 2 mg Q4H PRN PO PAIN SCALE 4 TO 7 05/22/17 19:45 05/27/17 07:47 Heparin Sodium (Porcine) (Heparin Central Flush) 250 units UNSCH PRN IV FLUSH SEE PROTOCOL TABLE 05/23/17 05:30 05/23/17 05:59 Sodium Chloride (NS Flush) 5 ml UNSCH PRN IV FLUSH FLUSH AFTER USING IV ACCESS 05/23/17 05:30 05/26/17 06:28 Alteplase, Recombinant (Cathflo Activase Inj) 2 mg Q2H PRN INTRACATH clotted catheter 05/23/17 10:00 05/23/17 10:42 Finasteride (Proscar) 5 mg DAILY PO 05/23/17 11:00 05/27/17 08:47 Tamsulosin HCl (Flomax) 0.4 mg DAILY PO 05/23/17 11:00 05/27/17 08:47 Albuterol/ Ipratropium (Duoneb Neb) 1 ampule BID NEB INH 05/23/17 13:00 05/27/17 07:45 Megestrol Acetate (Megace Liq) 400 mg DAILY PO 05/24/17 09:00 05/27/17 08:46 Diltiazem HCl 125 mg/Sodium Chloride 125 ml @ 5 mls/hr TITRATE PRN IV Tachycardia 05/23/17 18:30 05/24/17 02:19 Metoprolol Tartrate (Lopressor) 25 mg Q8HR PO 05/23/17 22:00 05/27/17 04:55 Pantoprazole Sodium (Protonix Inj) 40 mg Q24H IV PUSH 05/24/17 12:00 05/26/17 12:27 Diltiazem HCl (Cardizem) 60 mg Q6HR PO 05/24/17 12:00 05/27/17 04:55 Amiodarone HCl (Cordarone) 200 mg DAILY PO 05/25/17 09:00 05/27/17 08:47 Lactobacillus Acidophilus (Lactinex) 1 tab Q12HR PO 05/24/17 21:00 05/27/17 08:47 Acetaminophen (Tylenol) 650 mg Q4H PRN PO SEE LABEL COMMENTS 05/27/17 06:00 05/27/17 10:12 Diphenhydramine HCl (Benadryl) 25 mg Q4H PRN PO SEE LABEL COMMENTS 05/27/17 06:00 05/27/17 10:12 Objective Remarks GENERAL: Elderly male, lying in bed, supine. SKIN: Warm and dry. port in place, left chest wall, covered with clean bandages. HEAD: Normocephalic. EYES: No injection or drainage. NECK: Supple, trachea midline. CARDIOVASCULAR: IRR RESPIRATORY: anterior eldridge with scattered rhonchi. GASTROINTESTINAL: Abdomen soft, non-tender, nondistended. EXTREMITIES: No cyanosis NEUROLOGICAL: awake but fatigued. Assessment/Plan Problem List: (1) Neutropenia ICD Codes: D70.9 - Neutropenia, unspecified Status: Acute Plan: --on Neupogen --developed fever on 05/27, start neutropenic fever protocol. (2) Lung cancer ICD Codes: C34.90 - Malignant neoplasm of unspecified part of unspecified bronchus or lung Status: Acute Plan: --will plan further treatment outpatient once recovered from current hospitalization. History: -- found to have a large pleural based mass in the medial aspect of the right upper lobe with bony metastatic disease. --CT/PET scan shows evidence of metastatic disease to the left adrenal gland in addition to a right pleural effusion and questionable solitary metastatic lesion to the liver. --Biopsy showed a poorly differentiated non-small cell lung cancer, adenocarcinoma histology. EGFR, ALK, PD-L1 are still pending. --was offered palliative chemotherapy with carboplatin and Alimta on April. Neulasta was requested through his insurance company, but was denied given that the stated risk of neutropenic fever associated with Alimta and carboplatin is only 5%. (3) Pain ICD Codes: R52 - Pain, unspecified Plan: --on PO Dilaudid for breakthrough pain. Pain: --CT abdomen and pelvis showed diffuse mets to the bony structures and a destructive lesion at T10 and 11 that is probably a source of his radiculopathy. other sites are being targeted with radiation. (4) Pleural effusion ICD Codes: J90 - Pleural effusion, not elsewhere classified Status: Acute Plan: --s/p thoracentesis. (5) Renal insufficiency ICD Codes: N28.9 - Disorder of kidney and ureter, unspecified (6) Hypernatremia ICD Codes: E87.0 - Hyperosmolality and hypernatremia (7) Thrombocytopenia ICD Codes: D69.6 - Thrombocytopenia, unspecified Assessment 76y/o male with metastatic NSCLC admitted with chemotherapy induced neutropenia , worsening pleural effusion, worsened renal insufficiency and hypotension. --s/ p thoracentesis. h/o COPD Chronic pain Chronic tobacco use Metastatic [id number] lung cancer adenocarcinoma Histology. Chronic renal insufficiency Chronic anemia Plan 1. continue Neupogen 2. give 1 unit platelets, send HLA matching for HLA matched platelets in the future 3. stop 1/2 NS, start D5W for hypernatremia 4. start Cefepime, obtain blood cultures, CXR and U/A for neutropenic fever. Attending Statement The exam, history, and the medical decision-making described in the above note were completed with the assistance of the mid-level provider. I reviewed and agree with the findings presented. I attest that I had a [id number] encounter with the patient on the same day, and personally performed and documented my assessment and findings in the medical record. Pancytopenic requiring platelet transfusion. Suspect increased exposure to carboplatin because of decline in renal function after chemotherapy. Continue support. Check post platelet transfusion platelet count. r/o VTE, check US LE GCSF continue, monitor for fever. Monitor mental status with pain med management. Hypernatremia and hypokalemia, replace with KCL in D5W. Problem Qualifiers (1) Neutropenia: Qualified Codes: D70.9 - Neutropenia, unspecified (2) Lung cancer: Qualified Codes: C34.90 - Malignant neoplasm of unspecified part of unspecified bronchus or lung Rosalinda Milian May 27, 2017 10:28 Tavia Gregorio MD May 27, 2017 17:22
--- NOTE | 2017-05-27 11:06 | RADRPT ---
EXAM DATE/TIME: 05/27/2017 10:44 [facility] COMPARISON: CHEST EXPIRATION ONLY, May 22, 2017, 15:52. INDICATIONS : Fever MEDICAL HISTORY : Emphysema. Benign prostatic hyperplasia, (BPH) Arthritis. Carcinoma, lung. COPD. HTN. Dyspnea. SURGICAL HISTORY : Cholecystectomy. Arthroscopic knees. Chemotherapy. ENCOUNTER: Subsequent ACUITY: 4 - 6 days PAIN SCORE: 0/10 LOCATION: chest FINDINGS: A single view of the chest demonstrates right basilar pleural-parenchymal density, more prominent on current study. Minimal density in the left lung. Heart borderline enlarged. Osseous structures are i ntact. Degenerative changes thoracic spine. Left-sided portacatheter with tip at the SVC and unchange d. CONCLUSION: 1. Right basilar pleural-parenchymal density which is more prominent on current study. Yung Lim MD on May 27, 2017 at 11:00 Board Certified Radiologist. This report was verified electronically.
[2017-05-27] MEDS: PANTOPRAZOLE SODIUM 40 MG VIAL IV PUSH SCH (12:34)
[2017-05-27] MEDS: CEFEPIME INJ 2,000 MG in SODIUM CHLORIDE 0.9% INJ 100 ML IV SCH (12:35)
--- NOTE | 2017-05-27 13:37 | HHI.PR ---
Subjective Remarks In bed, chronically ill appearing, says he feels very tired and she feels sick however not able to elaborate. Very weak voice. He had a bowel movement in the morning. No nausea or vomiting no diarrhea or constipation. Not eating much. Denies chest pain, has shortness of breath. Plan to transfuse platelets and red blood cells today Objective Vitals Vital Signs Date Time Temp Pulse Resp B/P (MAP) Pulse Ox O2 Delivery O2 Flow Rate FiO2 05/27/17 10:07 99.7 05/27/17 10:02 104 20 128/60 98 05/27/17 07:47 98 05/27/17 06:32 98.8 101 16 114/54 99 05/27/17 06:13 99 Room Air 05/27/17 06:00 102 05/27/17 05:03 98.8 111 16 114/54 (74) 99 05/27/17 05:00 106 05/27/17 04:00 107 05/27/17 03:00 104 05/27/17 02:00 102 05/27/17 01:00 102 05/27/17 00:38 99.4 112 16 127/64 (85) 05/27/17 00:00 111 05/27/17 00:00 100 05/26/17 23:00 100 05/26/17 21:24 97 Room Air 05/26/17 21:18 98.2 104 16 118/53 (74) 97 05/26/17 21:00 104 05/26/17 20:38 97 05/26/17 20:10 105 05/26/17 18:30 20 05/26/17 16:00 98.1 95 16 114/63 (80) 96 05/26/17 16:00 95 05/26/17 15:00 96 Room Air I/O 05/26/17 05/26/17 05/26/17 05/27/17 05/27/17 05/27/17 07:00 15:00 23:00 07:00 15:00 23:00 Intake Total 1465 ml 396 ml 630 ml 880 ml 816 ml Output Total 600 ml 400 ml Balance 865 ml 396 ml 230 ml 880 ml 816 ml Intake Oral 1000 ml 630 ml 880 ml IV Total 465 ml Platelets 368 ml 566 ml Blood Product IV Normal Saline Flush 28 ml 250 ml Output Urine Total 600 ml 400 ml # Voids 1 5 6 # Bowel Movements 2 4 4 Result Diagram: 05/27/1744905/27/170 Imaging Last Impressions Lower Extremity Ultrasound 05/27/17 0000 Signed Impressions: Service Date/Time: Saturday, May 27, 2017 07:56 - CONCLUSION: Negative examination. No evidence of DVT. Randolph Heart MD Chest X-Ray 05/27/17 0000 Signed Impressions: Service Date/Time: Saturday, May 27, 2017 10:44 - CONCLUSION: 1. Right basilar pleural-parenchymal density which is more prominent on current study. Yung Lim MD Abdomen X-Ray 05/24/17 0000 Signed Impressions: Service Date/Time: Wednesday, May 24, 2017 15:55 - CONCLUSION: Nonspecific bowel gas pattern with moderately distended loops of small bowel in the left upper quadrant. Most likely to represent ileus. Gerald Preciado MD Venous Access Device Injection 05/23/17 0000 Signed Impressions: Service Date/Time: Tuesday, May 23, 2017 17:18 - CONCLUSION: 1. Port catheter and tubing are intact. 2. Port tip projects over the central venous system. There appears to be a persistent fibrin sheath at the catheter tip despite recent TPA infusion. Derek Davis MD Thoracentesis Ultrasound 05/22/17 0000 Signed Impressions: Service Date/Time: April 14:56 - CONCLUSION: Uncomplicated ultrasound guided right thoracentesis. Sampling was not requested. Quinn Huang Jr., MD Abdomen/Pelvis CT 05/22/17 0000 Signed Impressions: Service Date/Time: April 13:32 - CONCLUSION: 1. Diffuse metastatic disease to the visualized bony structures, left adrenal gland, and visualized lung parenchyma. Special note is made of destructive lesions involving the T10 and L1 levels that involve the left neural foramen and could be possible source of the left radiculopathy. 2. Large right-sided pleural effusion. 3. Prior cholecystectomy. Quinn Huang Jr., MD Objective Remarks GENERAL: in NAD CARDIOVASCULAR: Tachycardic in the 110s rate and rhythm without murmurs, gallops , or rubs. RESPIRATORY: Decreased breath sounds in the right lower area. Otherwise clear to auscultation. Dressing in place on the right side. No accessory muscle use. GASTROINTESTINAL: Abdomen soft,neg TTP, nondistended. Negative for any peritoneal signs. MUSCULOSKELETAL: No cyanosis, or edema. BACK: Nontender without obvious deformity. No CVA tenderness. 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 Chest x-ray shows right-sided pleural effusion that was reviewed by me. -Status post therapeutic thoracentesis on 05/22 by IR. -Drastic improvement in his respiratory after thoracentesis. Carton Stenciler Dr. Young consulted stated that patient is stable can follow up as outpatient. Paroxysmal atrial fibrillation with RVR -Rate better control. Status post Cardizem drip and amiodarone drip. -Now on Cardizem and amiodarone by mouth. Per maintenance service technician would attempt to eventually wean off amiodarone in the next 1-2 weeks. Patient is also not candidate for anticoagulation or aspirin due to thrombocytopenia. On discharge Cardizem can be changed to long-acting. -Echo reviewed with EF of 60-65%. Non-small cell lung cancer with metastases to the bone -Dr. Gregorio consulted and following. Pancytopenia secondary to chemotherapy -Status post chemotherapy on Friday -Oncologist managing. - Continue Neupogen -Transfusion per oncologist. Hypotension on admission. -Review labs. Patient is third spacing with low albumin. Decrease oral intake along with diarrhea. -Improved on IV fluids. Status post albumin given. -Resolved. Hypernatremia -Patient has decreased oral intake and he has been on normal saline. Will change fluids to half-normal saline. Continue to trend and monitor sodium. Diarrhea -Mostly secondary to chemotherapy. C. difficile negative. -Reviewed CT scan of the abdomen which shows metastases to the bones, left adrenal gland, and lungs. -on Lactinex. Abdominal pain -Today abdominal pain resolved. Pain was more in the epigastric area. -Patient on Protonix. -KUB on 05/24 shows ileus. Patient is asymptomatic. Education given to patient that ileus most likely secondary to pain medication in which patient is in a difficult situation since since does have metastases to the bones. Acute on chronic pain secondary to metastatic disease -Pain medication adjusted by oncologist. Patient now on PO Dilaudid. Acute on chronic renal failure -Patient was recently taken off of ibuprofen due to worsening renal function. -Most likely secondary to combination of hypotension and ibuprofen use. Not recommend NSAID use. - Urologist was consulted and stated very unlikely due to BPH. Patient was started on Flomax and Proscar. -Chronic continues to improve. Avoid nephrotoxins. Continue trend creatinine and strict ins and outs. Hypertension -Patient on multiple medication due to age fibrillation with RVR. Failure to thrive -Secondary to cancer and chemotherapy treatment. -On Megace. Dietitian consulted. Tobacco dependence -Patient has decreased amount of cigarettes he is smoking. Smoking cessation. DVT prophylaxis -Chemoprophylaxis held secondary to anticipating thoracentesis. Discharge Planning Poor prognosis. Transfusing PLT and pRBCs 05/27/17 Once rate is controlled on oral medication and cleared by oncologist patient can be discharged to home. Cris Chappell MD May 27, 2017 13:37
[2017-05-27] MEDS: SODIUM CHLORIDE 0.9% FLUSH 10 ML FLUSH IV FLUSH SCH ×2 (15:14→22:52)
[2017-05-27] MEDS: FILGRASTIM 480 MCG/1.6 ML VIAL SQ SCH (15:15)
[2017-05-27 19:03] LABS: AMORPHOUS SEDIMENT, URINE RARE; BILIRUBIN, URINE NEG (NEG); BLOOD, URINE NEG (NEG); GLUCOSE,URINE NEG (NEG); KETONE, URINE NEG (NEG); MUCUS URINE FEW /lpf (OCC); NITRITE,URINE NEG (NEG); PH, URINE 5.5 (5.0-8.5); SQUAMOUS EPITHELIAL CELL URINE 1 /hpf (0-5); URINE COLOR YELLOW (YELLW/STRAW); URINE LEUKOCYTE ESTERASE NEG (NEG)
--- NOTE | 2017-05-27 23:13 | PD.CARD.PN ---
Subjective Subjective Remarks Patient was seen earlier today around 10am, late entry note Patient feeling worse today, weak/fatigued Heart rates mostly controlled, mildly elevated with fever/pain all over body Objective Medications Current Medications Medications (Trade) Dose Ordered Sig/Javier Route Start Time Stop Time Status Last Admin (NS Flush) 2 ml UNSCH PRN IV FLUSH 05/22/17 13:45 05/26/17 06:28 (NS Flush) 2 ml BID IV FLUSH 05/22/17 21:00 05/27/17 22:52 (Tylenol) 650 mg Q4H PRN PO 05/22/17 13:45 (Zofran Inj) 4 mg Q6H PRN IVP 05/22/17 13:45 05/24/17 02:19 (Narcan Inj) 0.4 mg UNSCH PRN IV PUSH 05/22/17 13:45 (Mucinex Er) 1,200 mg BID PO 05/22/17 14:30 05/27/17 22:51 (Folate) 1 mg DAILY PO 05/23/17 09:00 05/27/17 08:55 (Alliance 5-325 Mg) 1 tab Q4H PRN PO 05/22/17 14:45 Future Hold (Neupogen Inj) 480 mcg DAILY@14 SQ 05/22/17 18:00 05/27/17 15:15 (Alliance 10-325 Mg) 1 tab Q4H PRN PO 05/22/17 18:45 Future Hold (Morphine Inj) 2 mg Q4H PRN IV PUSH 05/22/17 18:45 (Dilaudid) 2 mg Q4H PRN PO 05/22/17 19:45 05/27/17 19:48 (Heparin Central Flush) 250 units UNSCH PRN IV FLUSH 05/23/17 05:30 05/23/17 05:59 (Heparin Central Flush) 500 units UNSCH IV FLUSH 05/23/17 05:30 (NS Flush) 5 ml UNSCH PRN IV FLUSH 05/23/17 05:30 05/26/17 06:28 (Cathflo Activase Inj) 2 mg Q2H PRN INTRACATH 05/23/17 10:00 05/23/17 10:42 (Proscar) 5 mg DAILY PO 05/23/17 11:00 05/27/17 08:47 (Flomax) 0.4 mg DAILY PO 05/23/17 11:00 05/27/17 08:47 (Duoneb Neb) 1 ampule Q6HR NEB PRN INH 05/23/17 13:00 (Megace Liq) 400 mg DAILY PO 05/24/17 09:00 05/27/17 08:46 Diltiazem HCl 125 mg/Sodium Chloride 125 ml @ 5 mls/hr TITRATE PRN IV 05/23/17 18:30 05/24/17 02:19 (Lopressor) 25 mg Q8HR PO 05/23/17 22:00 05/27/17 22:51 (Protonix Inj) 40 mg Q24H IV PUSH 05/24/17 12:00 05/27/17 12:34 (Cardizem) 60 mg Q6HR PO 05/24/17 12:00 05/27/17 19:47 (Cordarone) 200 mg DAILY PO 05/25/17 09:00 05/27/17 08:47 (Lactinex) 1 tab Q12HR PO 05/24/17 21:00 05/27/17 22:51 Miscellaneous Information 1 Q3D T-DERMAL 05/28/17 17:00 (Tylenol) 650 mg Q4H PRN PO 05/27/17 06:00 05/27/17 10:12 (Benadryl) 25 mg Q4H PRN PO 05/27/17 06:00 05/27/17 10:12 Cefepime HCl 2000 mg/Sodium Chloride 100 ml @ 200 mls/hr Q12H IV 05/27/17 12:00 05/27/17 12:35 Vital Signs / I&O Vital Signs Date Time Temp Pulse Resp B/P (MAP) Pulse Ox O2 Delivery O2 Flow Rate FiO2 05/27/17 10:30 101.0 05/27/17 10:07 99.7 05/27/17 10:02 104 20 128/60 98 05/27/17 08:47 18 05/27/17 08:00 108 05/27/17 08:00 97 Room Air 05/27/17 08:00 98.4 105 20 138/67 (90) 100 05/27/17 07:47 98 05/27/17 06:32 98.8 101 16 114/54 99 05/27/17 06:13 99 Room Air 05/27/17 06:00 102 05/27/17 05:03 98.8 111 16 114/54 (74) 99 05/27/17 05:00 106 05/27/17 04:00 107 05/27/17 03:00 104 05/27/17 02:00 102 05/27/17 01:00 102 05/27/17 00:38 99.4 112 16 127/64 (85) 05/27/17 00:00 111 05/27/17 00:00 100 I/O 05/27/17 05/27/17 05/27/17 05/28/17 05/28/17 05/28/17 07:00 15:00 23:00 07:00 15:00 23:00 Intake Total 880 ml 1276 ml 720 ml Balance 880 ml 1276 ml 720 ml Intake Oral 880 ml 720 ml Packed Cells 400 ml Platelets 566 ml Blood Product IV Normal Saline Flush 310 ml # Voids 6 7 # Bowel Movements 4 5 Physical Exam GENERAL: NAD, AAOx3 SKIN: Warm and dry. HEAD: Atraumatic. Normocephalic. EYES: Pupils equal and round. No scleral icterus. No injection or drainage. ENT: No nasal bleeding or discharge. Mucous membranes pink and moist. NECK: Trachea midline. No JVD. CARDIOVASCULAR: Irregularly irregular RESPIRATORY: No accessory muscle use. Clear to auscultation. Breath sounds equal bilaterally. GASTROINTESTINAL: Abdomen soft, non-tender, nondistended. Hepatic and splenic margins not palpable. MUSCULOSKELETAL: Extremities without clubbing, cyanosis, or edema. No obvious deformities. NEUROLOGICAL: Awake and alert. No obvious cranial nerve deficits. Motor grossly within normal limits. Five out of 5 muscle strength in the arms and legs. Normal speech. PSYCHIATRIC: Appropriate mood and affect; insight and judgment normal. Laboratory Laboratory Tests Test 05/27/17 04:50 05/27/17 18:15 05/27/17 21:30 White Blood Count 0.3 TH/MM3 Red Blood Count 2.22 MIL/MM3 Hemoglobin 7.0 GM/DL Hematocrit 20.4 % Mean Corpuscular Volume 91.7 FL Mean Corpuscular Hemoglobin 31.3 PG Mean Corpuscular Hemoglobin Concent 34.2 % Red Cell Distribution Width 12.9 % Platelet Count 3 TH/MM3 23 TH/MM3 Mean Platelet Volume 8.5 FL CBC Comment AUTO DIFF Differential Total Cells Counted 100 Neutrophils % (Manual) 21 % Band Neutrophils % 21 % Lymphocytes % 36 % Monocytes % 14 % Eosinophils % 6 % Neutrophils # (Manual) 0.1 TH/MM3 Metamyelocytes 1 % Myelocytes 1 % Differential Comment FINAL DIFF MANUAL Toxic Granulation 2+ Dohle Bodies PRESENT Platelet Estimate RARE Platelet Morphology Comment NORMAL Rouleau PRESENT Blood Urea Nitrogen 65 MG/DL Creatinine 1.54 MG/DL Random Glucose 133 MG/DL Total Protein 4.6 GM/DL Albumin 1.9 GM/DL Calcium Level 7.9 MG/DL Magnesium Level 2.4 MG/DL Alkaline Phosphatase 42 U/L Aspartate Amino Transf (AST/SGOT) 12 U/L Alanine Aminotransferase (ALT/SGPT) 46 U/L Total Bilirubin 0.5 MG/DL Sodium Level 155 MEQ/L Potassium Level 2.7 MEQ/L Chloride Level 127 MEQ/L Carbon Dioxide Level 15.4 MEQ/L Anion Gap 13 MEQ/L Estimat Glomerular Filtration Rate 44 ML/MIN Urine Color YELLOW Urine Turbidity CLEAR Urine pH 5.5 Urine Specific [place] 1.013 Urine Protein TRACE mg/dL Urine Glucose (UA) NEG mg/dL Urine Ketones NEG mg/dL Urine Occult Blood NEG Urine Nitrite NEG Urine Bilirubin NEG Urine Urobilinogen LESS THAN 2.0 MG/DL Urine Leukocyte Esterase NEG Urine RBC 1 /hpf Urine WBC 2 /hpf Urine Squamous Epithelial Cells 1 /hpf Urine Amorphous Sediment RARE Urine Mucus FEW /lpf Imaging Last 24 hours Impressions Lower Extremity Ultrasound 05/27/17 0000 Signed Impressions: Service Date/Time: Saturday, May 27, 2017 07:56 - CONCLUSION: Negative examination. No evidence of DVT. Randolph Heart MD ADDENDUM: Incidentally omitted is no indication that there is thrombus in the right greater saphenous vein Randolph Heart MD Chest X-Ray 05/27/17 0000 Signed Impressions: Service Date/Time: Saturday, May 27, 2017 10:44 - CONCLUSION: 1. Right basilar pleural-parenchymal density which is more prominent on current study. Yung Lim MD Assessment and Plan Problem List: (1) Paroxysmal A-fib ICD Codes: I48.0 - Paroxysmal atrial fibrillation (2) Lung cancer ICD Codes: C34.90 - Malignant neoplasm of unspecified part of unspecified bronchus or lung Status: Acute (3) Pleural effusion ICD Codes: J90 - Pleural effusion, not elsewhere classified Status: Acute (4) Neutropenia ICD Codes: D70.9 - Neutropenia, unspecified Status: Acute (5) Weakness generalized ICD Codes: R53.1 - Weakness Status: Acute (6) Renal insufficiency ICD Codes: N28.9 - Disorder of kidney and ureter, unspecified (7) Pain ICD Codes: R52 - Pain, unspecified Assessment and Plan 1) Afib with RVR Now more controlled, con't Cardizem/Amiodarone PO If further episodes of Afib with RVR, may need to increase medications but will have to watch with blood pressure Would attempt to eventually wean off Amiodarone if possible over next 1-2 weeks, would prefer not to stay on terminal manager Cardizem can be changed to long acting on discharge Not a candidate for anti-coagulation, not a candidate for ASA 2) EF 60-65% 3) Lung cancer with mets per Heme/Onc 4) Pancytopenia secondary to chemotherapy Receiving platelets Problem Qualifiers (1) Lung cancer: Qualified Codes: C34.90 - Malignant neoplasm of unspecified part of unspecified bronchus or lung (2) Neutropenia: Qualified Codes: D70.9 - Neutropenia, unspecified Louie Fox DO May 27, 2017 23:13
[2017-05-28] VITALS (31 sets, daily range): BP systolic 102–126; BP diastolic 56–70; PULSE 96–116; RESP 18–35; TEMP 97.3–100.4; O2SAT 96–100
[2017-05-28] MEDS: DILTIAZEM HCL 60 MG TAB PO SCH ×4 (01:25→17:49)
[2017-05-28] MEDS: CEFEPIME INJ 2,000 MG in SODIUM CHLORIDE 0.9% INJ 100 ML IV SCH ×3 (01:25→15:00)
[2017-05-28] MEDS: METOPROLOL TARTRATE 25 MG TAB PO SCH ×3 (06:13→21:27)
[2017-05-28] MEDS: SODIUM CHLORIDE 0.9% FLUSH 10 ML FLUSH IV FLUSH PRN (06:45)
[2017-05-28 07:00] LABS: HEMATOCRIT 22.5 % (39.0-51.0); HEMOGLOBIN 7.7 GM/DL (13.0-17.0); MEAN CELL VOLUME 90.6 FL (80.0-100.0); MEAN CORPUSCULAR HEMOGLOBIN 30.9 PG (27.0-34.0); MEAN CORPUSCULAR HGB CONC 34.2 % (32.0-36.0); MEAN PLATELET VOLUME 7.6 FL (7.0-11.0); RED BLOOD COUNT 2.49 MIL/MM3 (4.50-5.90); RED CELL DISTRIBUTION WIDTH 13.3 % (11.6-17.2); WHITE BLOOD COUNT 0.5 TH/MM3 (4.0-11.0)
[2017-05-28 07:12] LABS: BICARBONATE 17.4 MEQ/L (21.0-32.0); CALCIUM 8.3 MG/DL (8.5-10.1); CREATININE 1.51 MG/DL (0.60-1.30)
[2017-05-28 07:21] LABS: PLATELET COUNT 16 TH/MM3 (150-450)
[2017-05-28] MEDS: LACTOBACILLUS ACIDOPHILUS TAB PO SCH ×2 (08:05→21:27)
[2017-05-28] MEDS: AMIODARONE 200 MG TAB PO SCH (08:05)
[2017-05-28] MEDS: guaiFENesin E.R. 600 MG TAB PO SCH ×2 (08:05→21:27)
[2017-05-28] MEDS: FOLIC ACID 1 MG TAB PO SCH (08:05)
[2017-05-28] MEDS: TAMSULOSIN HCL 0.4 MG CAP PO SCH (08:05)
[2017-05-28] MEDS: MEGESTROL ACETATE SUSP 400 MG/10 ML CUP PO SCH (08:05)
[2017-05-28] MEDS: UMECLIDINIUM 62.5 MCG/VILANTEROL 25 MCG INHALER INH SCH (08:07)
[2017-05-28] MEDS: SODIUM CHLORIDE 0.9% FLUSH 10 ML FLUSH IV FLUSH SCH ×2 (08:07→21:27)
[2017-05-28] MEDS: FINASTERIDE 5 MG TAB PO SCH (08:07)
[2017-05-28] MEDS ORDERED: POTASSIUM CHLORIDE 25 MEQ EFFERVESCENT TAB PO ONE (08:30)
[2017-05-28 08:38] LABS: BANDS 28 % (0-6); LYMPHOCYTES 19 % (9-44); METAMYELOCYTES 1 % (0-1); MONOCYTES 13 % (0-8); NEUTROPHIL # MANUAL DIFF 0.3 TH/MM3 (1.8-7.7); POLYS (SEG NEUTROPHILS) 30 % (16-70)
[2017-05-28 08:40] LABS: DOHLE BODIES PRESENT (NONE SEEN); ROULEAUX PRESENT (NORMAL); TOXIC GRANULATION 1+ (NORMAL); TOXIC VACUOLATION PRESENT (NONE SEEN)
[2017-05-28] MEDS ORDERED: D5W + KCL 20 MEQ INJ 1,000 ML IV SCH (09:00)
[2017-05-28] MEDS: RESP: ALBUTEROL 2.5 MG/IPRATROPIUM 0.5 MG NEB (PRN) INH (09:17)
[2017-05-28] MEDS: diphenhydrAMINE HCL 25 MG CAP PO PRN (10:31)
[2017-05-28] MEDS: ACETAMINOPHEN 325 MG TAB PO PRN (10:31)
--- NOTE | 2017-05-28 11:17 | HHI.PR ---
Subjective Remarks Chronic ill-appearing in bed with some shortness of breath and cough. No sputum production. No fever or chills. No abdominal pain. The patient feels extremely weak and says he feels sick. No nausea or vomiting. He is not eating. Objective Vitals Vital Signs Date Time Temp Pulse Resp B/P (MAP) Pulse Ox O2 Delivery O2 Flow Rate FiO2 05/28/17 11:10 30 99 05/28/17 10:57 99.1 108 18 126/63 98 05/28/17 10:00 102 05/28/17 09:00 100 05/28/17 08:19 98 Room Air 05/28/17 08:00 96 05/28/17 07:55 98.2 98 25 119/70 (86) 97 05/28/17 07:00 105 05/28/17 06:00 106 05/28/17 05:14 100.4 106 25 107/57 (74) 99 05/28/17 05:00 106 05/28/17 04:05 115 05/28/17 03:00 104 05/28/17 02:00 106 05/28/17 01:00 104 05/28/17 00:09 116 05/27/17 23:00 132 05/27/17 22:42 97.3 127 32 96/75 (82) 94 05/27/17 22:00 116 05/27/17 21:25 112 05/27/17 21:20 Nasal Cannula 2.00 05/27/17 21:19 98.7 103 25 100/67 (78) 94 05/27/17 20:48 16 05/27/17 20:00 112 05/27/17 18:00 98.7 108 26 97 05/27/17 17:14 97 21 05/27/17 15:27 112 24 127/62 (83) 97 05/27/17 13:00 98.3 108 20 128/62 97 I/O 05/27/17 05/27/17 05/27/17 05/28/17 05/28/17 05/28/17 07:00 15:00 23:00 07:00 15:00 23:00 Intake Total 880 ml 1276 ml 720 ml 250 ml Output Total 300 ml Balance 880 ml 1276 ml 720 ml -50 ml Intake Oral 880 ml 720 ml 250 ml Packed Cells 400 ml Platelets 566 ml Blood Product IV Normal Saline Flush 310 ml Output Urine Total 300 ml # Voids 6 7 4 # Bowel Movements 4 5 2 1 Result Diagram: 05/28/1762905/28/17629 Imaging Last Impressions Lower Extremity Ultrasound 05/27/17 0000 Signed Impressions: Service Date/Time: Saturday, May 27, 2017 07:56 - CONCLUSION: Negative examination. No evidence of DVT. Randolph Heart MD ADDENDUM: Incidentally omitted is no indication that there is thrombus in the right greater saphenous vein Randolph Heart MD Chest X-Ray 05/27/17 0000 Signed Impressions: Service Date/Time: Saturday, May 27, 2017 10:44 - CONCLUSION: 1. Right basilar pleural-parenchymal density which is more prominent on current study. Yung Lim MD Abdomen X-Ray 05/24/17 0000 Signed Impressions: Service Date/Time: Wednesday, May 24, 2017 15:55 - CONCLUSION: Nonspecific bowel gas pattern with moderately distended loops of small bowel in the left upper quadrant. Most likely to represent ileus. Gerald Preciado MD Venous Access Device Injection 05/23/17 0000 Signed Impressions: Service Date/Time: Tuesday, May 23, 2017 17:18 - CONCLUSION: 1. Port catheter and tubing are intact. 2. Port tip projects over the central venous system. There appears to be a persistent fibrin sheath at the catheter tip despite recent TPA infusion. Derek Davis MD Thoracentesis Ultrasound 05/22/17 0000 Signed Impressions: Service Date/Time: April 14:56 - CONCLUSION: Uncomplicated ultrasound guided right thoracentesis. Sampling was not requested. Quinn Huang Jr., MD Abdomen/Pelvis CT 05/22/17 0000 Signed Impressions: Service Date/Time: April 13:32 - CONCLUSION: 1. Diffuse metastatic disease to the visualized bony structures, left adrenal gland, and visualized lung parenchyma. Special note is made of destructive lesions involving the T10 and L1 levels that involve the left neural foramen and could be possible source of the left radiculopathy. 2. Large right-sided pleural effusion. 3. Prior cholecystectomy. Quinn Huang Jr., MD Objective Remarks GENERAL: in NAD CARDIOVASCULAR: Tachycardic in the 110s rate and rhythm without murmurs, gallops , or rubs. RESPIRATORY: Decreased breath sounds in the right lower area. Otherwise clear to auscultation. Dressing in place on the right side. No accessory muscle use. GASTROINTESTINAL: Abdomen soft,neg TTP, nondistended. Negative for any peritoneal signs. MUSCULOSKELETAL: No cyanosis, or edema. BACK: Nontender without obvious deformity. No CVA tenderness. 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 Chest x-ray shows right-sided pleural effusion that was reviewed by me. -Status post therapeutic thoracentesis on 05/22 by IR. -Drastic improvement in his respiratory after thoracentesis. Title Attorney Dr. Young consulted stated that patient is stable can follow up as outpatient. Paroxysmal atrial fibrillation with RVR -Rate better control. Status post Cardizem drip and amiodarone drip. -Now on Cardizem and amiodarone by mouth. Per translator interpreter would attempt to eventually wean off amiodarone in the next 1-2 weeks. Patient is also not candidate for anticoagulation or aspirin due to thrombocytopenia. On discharge Cardizem can be changed to long-acting. -Echo reviewed with EF of 60-65%. Non-small cell lung cancer with metastases to the bone -Dr. Gregorio consulted and following. Pancytopenia secondary to chemotherapy -Status post chemotherapy on Friday -Oncologist managing. - Continue Neupogen -Transfusion per oncologist. Hypotension on admission. -Review labs. Patient is third spacing with low albumin. Decrease oral intake along with diarrhea. -Improved on IV fluids. Status post albumin given. -Resolved. Hypokalemia Hypernatremia -Patient has decreased oral intake and he has been on fluids. DC IVF. Start D5 withKcL supplement as with low K. Give extra potassium bicarb as willgib=ve lasix with blood transfusion . Continue to trend and monitor sodium. Diarrhea, resolving -Mostly secondary to chemotherapy. C. difficile negative. -Reviewed CT scan of the abdomen which shows metastases to the bones, left adrenal gland, and lungs. -on Lactinex. Abdominal pain -Today abdominal pain resolved. Pain was more in the epigastric area. -Patient on Protonix. -KUB on 05/24 shows ileus. Patient is asymptomatic. Education given to patient that ileus most likely secondary to pain medication in which patient is in a difficult situation since since does have metastases to the bones. Acute on chronic pain secondary to metastatic disease -Pain medication adjusted by oncologist. Patient now on PO Dilaudid. Acute on chronic renal failure -Patient was recently taken off of ibuprofen due to worsening renal function. -Most likely secondary to combination of hypotension and ibuprofen use. Not recommend NSAID use. - Urologist was consulted and stated very unlikely due to BPH. Patient was started on Flomax and Proscar. -Chronic continues to improve. Avoid nephrotoxins. Continue trend creatinine and strict ins and outs. Hypertension -Patient on multiple medication due to age fibrillation with RVR. Failure to thrive -Secondary to cancer and chemotherapy treatment. -On Megace. Dietitian consulted. Tobacco dependence -Patient has decreased amount of cigarettes he is smoking. Smoking cessation. DVT prophylaxis -Chemoprophylaxis held secondary to anticipating thoracentesis. Discharge Planning Poor prognosis. Transfusing 1U pRBCs 05/28/17 Once rate is controlled on oral medication and cleared by oncologist patient can be discharged to home. Cris Chappell MD May 28, 2017 11:17
[2017-05-28] MEDS ORDERED: FUROSEMIDE 40 MG/4 ML VIAL IV PUSH ONE (12:00)
[2017-05-28] MEDS ORDERED: POTASSIUM BICARBONATE 25 MEQ EFFERVESCENT TAB PO ONE (12:00)
[2017-05-28] MEDS: PANTOPRAZOLE SODIUM 40 MG VIAL IV PUSH SCH (12:21)
--- NOTE | 2017-05-28 13:10 | PD.CARD.PN ---
Subjective Subjective Remarks Patient was seen earlier today around 10am, late entry note Patient feeling worse today, weak/fatigued Heart rates mostly controlled, mildly elevated with pain all over body Objective Medications Current Medications Medications (Trade) Dose Ordered Sig/Javier Route Start Time Stop Time Status Last Admin (NS Flush) 2 ml UNSCH PRN IV FLUSH 05/22/17 13:45 05/26/17 06:28 (NS Flush) 2 ml BID IV FLUSH 05/22/17 21:00 05/28/17 08:07 (Tylenol) 650 mg Q4H PRN PO 05/22/17 13:45 (Zofran Inj) 4 mg Q6H PRN IVP 05/22/17 13:45 05/24/17 02:19 (Narcan Inj) 0.4 mg UNSCH PRN IV PUSH 05/22/17 13:45 (Mucinex Er) 1,200 mg BID PO 05/22/17 14:30 05/28/17 08:05 (Folate) 1 mg DAILY PO 05/23/17 09:00 05/28/17 08:05 ([place] 5-325 Mg) 1 tab Q4H PRN PO 05/22/17 14:45 Future Hold (Neupogen Inj) 480 mcg DAILY@14 SQ 05/22/17 18:00 05/27/17 15:15 ([place] 10-325 Mg) 1 tab Q4H PRN PO 05/22/17 18:45 Future Hold (Morphine Inj) 2 mg Q4H PRN IV PUSH 05/22/17 18:45 (Dilaudid) 2 mg Q4H PRN PO 05/22/17 19:45 05/27/17 19:48 (Heparin Central Flush) 250 units UNSCH PRN IV FLUSH 05/23/17 05:30 05/23/17 05:59 (Heparin Central Flush) 500 units UNSCH IV FLUSH 05/23/17 05:30 05/28/17 06:45 (NS Flush) 5 ml UNSCH PRN IV FLUSH 05/23/17 05:30 05/28/17 06:45 (Cathflo Activase Inj) 2 mg Q2H PRN INTRACATH 05/23/17 10:00 05/23/17 10:42 (Proscar) 5 mg DAILY PO 05/23/17 11:00 05/28/17 08:07 (Flomax) 0.4 mg DAILY PO 05/23/17 11:00 05/28/17 08:05 (Duoneb Neb) 1 ampule Q6HR NEB PRN INH 05/23/17 13:00 05/28/17 09:17 (Megace Liq) 400 mg DAILY PO 05/24/17 09:00 05/28/17 08:05 Diltiazem HCl 125 mg/Sodium Chloride 125 ml @ 5 mls/hr TITRATE PRN IV 05/23/17 18:30 05/24/17 02:19 (Lopressor) 25 mg Q8HR PO 05/23/17 22:00 05/28/17 06:13 (Protonix Inj) 40 mg Q24H IV PUSH 05/24/17 12:00 05/28/17 12:21 (Cardizem) 60 mg Q6HR PO 05/24/17 12:00 05/28/17 12:21 (Cordarone) 200 mg DAILY PO 05/25/17 09:00 05/28/17 08:05 (Lactinex) 1 tab Q12HR PO 05/24/17 21:00 05/28/17 08:05 Miscellaneous Information 1 Q3D T-DERMAL 05/28/17 17:00 Cefepime HCl 2000 mg/Sodium Chloride 100 ml @ 200 mls/hr Q12H IV 05/27/17 12:00 05/28/17 01:25 (K-Lyte Cl Eff) 25 meq Q12HR NG 05/28/17 21:00 Potassium Chloride/Dextrose 1,000 ml @ 84 mls/hr [id number] IV 05/28/17 09:00 05/28/17 09:59 Vital Signs / I&O Vital Signs Date Time Temp Pulse Resp B/P (MAP) Pulse Ox O2 Delivery O2 Flow Rate FiO2 05/28/17 11:26 97 Room Air 05/28/17 11:17 97.3 108 30 102/56 100 05/28/17 11:10 30 99 05/28/17 10:57 99.1 108 18 126/63 98 05/28/17 10:00 102 05/28/17 09:00 100 05/28/17 08:19 98 Room Air 05/28/17 08:00 96 05/28/17 07:55 98.2 98 25 119/70 (86) 97 05/28/17 07:00 105 05/28/17 06:00 106 05/28/17 05:14 100.4 106 25 107/57 (74) 99 05/28/17 05:00 106 05/28/17 04:05 115 05/28/17 03:00 104 05/28/17 02:00 106 05/28/17 01:00 104 05/28/17 00:09 116 05/27/17 23:00 132 05/27/17 22:42 97.3 127 32 96/75 (82) 94 05/27/17 22:00 116 05/27/17 21:25 112 05/27/17 21:20 Nasal Cannula 2.00 05/27/17 21:19 98.7 103 25 100/67 (78) 94 05/27/17 20:48 16 05/27/17 20:00 112 05/27/17 18:00 98.7 108 26 97 05/27/17 17:14 97 21 05/27/17 15:27 112 24 127/62 (83) 97 I/O 05/27/17 05/27/17 05/27/17 05/28/17 05/28/17 05/28/17 07:00 15:00 23:00 07:00 15:00 23:00 Intake Total 880 ml 1276 ml 720 ml 250 ml Output Total 300 ml Balance 880 ml 1276 ml 720 ml -50 ml Intake Oral 880 ml 720 ml 250 ml Packed Cells 400 ml Platelets 566 ml Blood Product IV Normal Saline Flush 310 ml Output Urine Total 300 ml # Voids 6 7 4 # Bowel Movements 4 5 2 1 Physical Exam GENERAL: NAD, AAOx3 SKIN: Warm and dry. HEAD: Atraumatic. Normocephalic. EYES: Pupils equal and round. No scleral icterus. No injection or drainage. ENT: No nasal bleeding or discharge. Mucous membranes pink and moist. NECK: Trachea midline. No JVD. CARDIOVASCULAR: Irregularly irregular RESPIRATORY: No accessory muscle use. Clear to auscultation. Breath sounds equal bilaterally. GASTROINTESTINAL: Abdomen soft, non-tender, nondistended. Hepatic and splenic margins not palpable. MUSCULOSKELETAL: Extremities without clubbing, cyanosis, or edema. No obvious deformities. NEUROLOGICAL: Awake and alert. No obvious cranial nerve deficits. Motor grossly within normal limits. Five out of 5 muscle strength in the arms and legs. Normal speech. PSYCHIATRIC: Appropriate mood and affect; insight and judgment normal. Laboratory Laboratory Tests Test 05/27/17 18:15 05/27/17 21:30 05/28/17 06:30 Urine Color YELLOW Urine Turbidity CLEAR Urine pH 5.5 Urine Specific [place] 1.013 Urine Protein TRACE mg/dL Urine Glucose (UA) NEG mg/dL Urine Ketones NEG mg/dL Urine Occult Blood NEG Urine Nitrite NEG Urine Bilirubin NEG Urine Urobilinogen LESS THAN 2.0 MG/DL Urine Leukocyte Esterase NEG Urine RBC 1 /hpf Urine WBC 2 /hpf Urine Squamous Epithelial Cells 1 /hpf Urine Amorphous Sediment RARE Urine Mucus FEW /lpf Platelet Count 23 TH/MM3 16 TH/MM3 White Blood Count 0.5 TH/MM3 Red Blood Count 2.49 MIL/MM3 Hemoglobin 7.7 GM/DL Hematocrit 22.5 % Mean Corpuscular Volume 90.6 FL Mean Corpuscular Hemoglobin 30.9 PG Mean Corpuscular Hemoglobin Concent 34.2 % Red Cell Distribution Width 13.3 % Mean Platelet Volume 7.6 FL CBC Comment AUTO DIFF Differential Total Cells Counted 100 Neutrophils % (Manual) 30 % Band Neutrophils % 28 % Lymphocytes % 19 % Monocytes % 13 % Eosinophils % 9 % Neutrophils # (Manual) 0.3 TH/MM3 Metamyelocytes 1 % Differential Comment FINAL DIFF MANUAL Toxic Granulation 1+ Toxic Vacuolation PRESENT Dohle Bodies PRESENT Platelet Estimate RARE Platelet Morphology Comment NORMAL Rouleau PRESENT Blood Urea Nitrogen 51 MG/DL Creatinine 1.51 MG/DL Random Glucose 143 MG/DL Calcium Level 8.3 MG/DL Sodium Level 157 MEQ/L Potassium Level 2.5 MEQ/L Chloride Level 130 MEQ/L Carbon Dioxide Level 17.4 MEQ/L Anion Gap 10 MEQ/L Estimat Glomerular Filtration Rate 45 ML/MIN Assessment and Plan Problem List: (1) Paroxysmal A-fib ICD Codes: I48.0 - Paroxysmal atrial fibrillation (2) Lung cancer ICD Codes: C34.90 - Malignant neoplasm of unspecified part of unspecified bronchus or lung Status: Acute (3) Pleural effusion ICD Codes: J90 - Pleural effusion, not elsewhere classified Status: Acute (4) Neutropenia ICD Codes: D70.9 - Neutropenia, unspecified Status: Acute (5) Weakness generalized ICD Codes: R53.1 - Weakness Status: Acute (6) Renal insufficiency ICD Codes: N28.9 - Disorder of kidney and ureter, unspecified (7) Pain ICD Codes: R52 - Pain, unspecified Assessment and Plan 1) Afib with RVR Now more controlled, con't Cardizem/Amiodarone PO If further episodes of Afib with RVR, may need to increase medications but will have to watch with blood pressure Would attempt to eventually wean off Amiodarone if possible over next 1-2 weeks, 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
--- NOTE | 2017-05-28 13:59 | PD.CONS ---
Consult Service Palliative Care Consult Requested By [facility] Primary Care Physician Unknown Reason for Consultation a. To assist with evaluation and management of symptoms including: b. To assist medical decision maker(s) with: better understanding of current medical conditions; weighing benefits/burdens of medical treatment options; making medical treatment decisions. HPI History of Present Illness Patient is a 76-year-old was recently diagnosed with lung cancer in March and had his first round of palliative chemotherapy 05/16/2017. 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 PET scan show evidence of metastatic disease to the left adrenal gland, questionable solitary metastatic lesion to the liver, and to the bone, T10 and L1. Patient was at his oncology clinic where he was noted to have systolic blood pressure in the 70s. Patient also has a history of COPD, BPH. Concomitantly patient is having radiation therapy. Patient was sent to the hospital from oncology for generalized weakness 05/22/2017. In the ER: * Temperature 90.8, pulse is 122, respirations 24, blood pressure is 135/67, pulse ox is 98% on 2 L. * Sodium is 137, potassium is 4.3, chloride is 109, bicarbonate 17 point, BUN is 112, creatinine is 2.51 * WBC 0.9, hemoglobin is 10.3, hematocrit is 30.2, platelet is 116 * Sodium is 137, potassium is 4.3, chloride is 109, bicarbonate 17.8, BUNs 112, creatinine is 2.51 * He has to use 5, ALTs 20, total protein is 5.9, albumin is 2.8 * PT is 10.7, INR is 1.1, PTT is 26.1 * UA is negative for nitrite or leukocyte esterase * Patient is negative for influenza * CT abdomen/pelvis diffuse metastatic disease to visualize bony structure, left adrenal gland, lung parenchyma. Special note is made of destructive lesion in T10 and L1 involving the left neural foramen and could be possible source of radiculopathy. There is a large right-sided pleural effusion Patient is admitted to hospitalist for pleural effusion, and generalized weakness. Patient underwent ultrasound-guided thoracentesis. Oncology is consulted, dated that neutropenia is likely related to chemotherapy.. == 05/23/2017. Patient developed narrow complex tachycardia was transferred to the ICU for further monitoring. Heart rate became uncontrolled in the 180s with associated hypotension. Patient was given adeno seen her return to the 180s. Patient placed on diltiazem drip. Pulmonology is also following, for COPD. == 05/24/2017 2-D echo was ordered shows normal left ventricular size, wall thickness is measured upper limits of normal, mitral annular calcification present. Pulmonary valve not visualized. Cardiology was consulted, attempt to change patient to oral medicine. Patient is not a candidate for anticoagulation given his significant thrombocytopenia. Patient transferred back to hospitalist == 05/25/2017-noyola express to attending physician that he would like to go home. Attending physician reviewed with him reason he still here and if he does not want to be treated anymore she should consider hospice. At that time patient remains somnolent. Patient have diarrhea == 05/26/2017-patient continued to be short of breath and weak. Patient was not able to eat anything just has no appetite. == 05/27/2017 she continued to be ill, feels very tired decrease appetite told cardiology that he was like he has fever/pain all over the body. Patient's sodium has been climbing to 157. Potassium is low at 2.5. Right basilar pleural parenchymal density is more prominent chest x-ray == 05/28/2017 given patient's weakness, general fatigue, and discomfort palliative care was consulted to review goals of care. She will renal status is worsening patient's renal status is worsening, sodium level climbing, potassium level decreasing. 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 Patient continued to be weak, fatigue, short of breath with discomfort. Condition is also complicated by A. fib, renal insufficiency. Functional status is poor and patient appears to be declining. Palliative care was consulted to review goals of care. On my visit, pt is alert but fatigued. Pt's daughter in law was present at bedside. Discussed course of cancer, and his hospitalization. Talk about my concern that with everything going such as A. fib , renal insufficiency, diarrhea, his functional status is just to weak to continue those treatment. Also spoke discussed that in terms of treatment, they are palliative, and not meant as curative. Discussed code status, and offered DNR/DNI, given that the implementation of life support would not cure his underlying cancer. Goals of care are the following. He would like son to be involved, but has expressed if the oncology feels and comfirms he is not a good candidate for further treatment, he is amenable to "pull the plug." and focus on comfort. Pt is leaning a DNR, but would like his son Elly to be involved, who would be present here tomorrow morning around 10:00am In the mean time he is still a full code. We spent time talking about his pain, which he currently denies. He state his dyspnea is not any worse. Daughter in law did say when he is in pain, he hurts in his back. Daughter in law is open towards comfort measures. Function/Cognitive Trajectory Always been dyspneic. Pt getting more and more fatigued. Past Family Social History Coded Allergies: No Known Allergies (Unverified , 05/06/14) Past Medical History Non-small cell lung cancer with metastases to the bone Hypertension Tobacco dependence Past Surgical History Left knee arthroscopically Cholecystectomy Biopsy of the lungs Current Medications Medications (Trade) Dose Ordered Sig/Javier Route Start Time Stop Time Status Last Admin (NS Flush) 2 ml UNSCH PRN IV FLUSH 05/22/17 13:45 05/26/17 06:28 (NS Flush) 2 ml BID IV FLUSH 05/22/17 21:00 05/28/17 08:07 (Tylenol) 650 mg Q4H PRN PO 05/22/17 13:45 (Zofran Inj) 4 mg Q6H PRN IVP 05/22/17 13:45 05/24/17 02:19 (Narcan Inj) 0.4 mg UNSCH PRN IV PUSH 05/22/17 13:45 (Mucinex Er) 1,200 mg BID PO 05/22/17 14:30 05/28/17 08:05 (Folate) 1 mg DAILY PO 05/23/17 09:00 05/28/17 08:05 ([place] 5-325 Mg) 1 tab Q4H PRN PO 05/22/17 14:45 Future Hold (Neupogen Inj) 480 mcg DAILY@14 SQ 05/22/17 18:00 05/27/17 15:15 ([place] 10-325 Mg) 1 tab Q4H PRN PO 05/22/17 18:45 Future Hold (Morphine Inj) 2 mg Q4H PRN IV PUSH 05/22/17 18:45 (Dilaudid) 2 mg Q4H PRN PO 05/22/17 19:45 05/27/17 19:48 (Heparin Central Flush) 250 units UNSCH PRN IV FLUSH 05/23/17 05:30 05/23/17 05:59 (Heparin Central Flush) 500 units UNSCH IV FLUSH 05/23/17 05:30 05/28/17 06:45 (NS Flush) 5 ml UNSCH PRN IV FLUSH 05/23/17 05:30 05/28/17 06:45 (Cathflo Activase Inj) 2 mg Q2H PRN INTRACATH 05/23/17 10:00 05/23/17 10:42 (Proscar) 5 mg DAILY PO 05/23/17 11:00 05/28/17 08:07 (Flomax) 0.4 mg DAILY PO 05/23/17 11:00 05/28/17 08:05 (Duoneb Neb) 1 ampule Q6HR NEB PRN INH 05/23/17 13:00 05/28/17 09:17 (Megace Liq) 400 mg DAILY PO 05/24/17 09:00 05/28/17 08:05 Diltiazem HCl 125 mg/Sodium Chloride 125 ml @ 5 mls/hr TITRATE PRN IV 05/23/17 18:30 05/24/17 02:19 (Lopressor) 25 mg Q8HR PO 05/23/17 22:00 05/28/17 06:13 (Protonix Inj) 40 mg Q24H IV PUSH 05/24/17 12:00 05/28/17 12:21 (Cardizem) 60 mg Q6HR PO 05/24/17 12:00 05/28/17 12:21 (Cordarone) 200 mg DAILY PO 05/25/17 09:00 05/28/17 08:05 (Lactinex) 1 tab Q12HR PO 05/24/17 21:00 05/28/17 08:05 Miscellaneous Information 1 Q3D T-DERMAL 05/28/17 17:00 Cefepime HCl 2000 mg/Sodium Chloride 100 ml @ 200 mls/hr Q12H IV 05/27/17 12:00 05/28/17 01:25 (K-Lyte Cl Eff) 25 meq Q12HR NG 05/28/17 21:00 Potassium Chloride/Dextrose 1,000 ml @ 84 mls/hr [id number] IV 05/28/17 09:00 05/28/17 09:59 Family History Reviewed past family history noncontributory Substance Use Tobacco:yes Alcohol:no Prescription med abuse:no Illicits:no Physical Exam Vital Signs Date Time Temp Pulse Resp B/P (MAP) Pulse Ox O2 Delivery O2 Flow Rate FiO2 05/28/17 11:26 97 Room Air 05/28/17 11:17 97.3 108 30 102/56 100 05/28/17 11:10 30 99 05/28/17 10:57 99.1 108 18 126/63 98 05/28/17 10:00 102 05/28/17 09:00 100 05/28/17 08:19 98 Room Air 05/28/17 08:00 96 05/28/17 07:55 98.2 98 25 119/70 (86) 97 05/28/17 07:00 105 05/28/17 06:00 106 05/28/17 05:14 100.4 106 25 107/57 (74) 99 05/28/17 05:00 106 05/28/17 04:05 115 05/28/17 03:00 104 05/28/17 02:00 106 05/28/17 01:00 104 05/28/17 00:09 116 05/27/17 23:00 132 05/27/17 22:42 97.3 127 32 96/75 (82) 94 05/27/17 22:00 116 05/27/17 21:25 112 05/27/17 21:20 Nasal Cannula 2.00 05/27/17 21:19 98.7 103 25 100/67 (78) 94 05/27/17 20:48 16 05/27/17 20:00 112 05/27/17 18:00 98.7 108 26 97 05/27/17 17:14 97 21 05/27/17 15:27 112 24 127/62 (83) 97 05/28/17 2 19:00 07:00 # Bowel Movements 1 Exam CONSTITUTIONAL/GENERAL: This is an adequately frail gentlemen, fatigued, some tachypnea. TUBES/LINES/DRAINS: SKIN: No jaundice, rashes, or lesions. Ecchymoses on upper extremities. No wounds seen anteriorly. Skin temperature appropriate. Not diaphoretic. HEAD: Atraumatic. Normocephalic. EYES: Pupils equal and round and reactive. Extraocular motions intact. No scleral icterus. No injection or drainage. Fundi not examined. ENT: Hearing grossly normal. Nose without bleeding or purulent drainage. Throat without visible erythema, exudates, masses, or lesions. NECK: Trachea midline. Supple, nontender. No palpable thyroid enlargement or nodularity. CARDIOVASCULAR: Regular rate and rhythm without murmurs, gallops, or rubs. No JVD. Peripheral pulses symmetric. RESPIRATORY/CHEST: Symmetric, . faint rhonchi bilaterally.. GASTROINTESTINAL: Abdomen soft, non-tender, distended. No guarding. Bowel sounds present. GENITOURINARY: Without palpable bladder distension. Hernadez catheter in place. MUSCULOSKELETAL: Extremities without clubbing, cyanosis, or edema. No joint tenderness or effusion noted. No calf tenderness. No mottling or clubbing. LYMPHATICS: No palpable cervical or supraclavicular adenopathy. NEUROLOGICAL: Awake and alert. fatibued Follows commands. Cognitively sharp. Moves all extremities. PSYCHIATRIC: No obvious anxiety/depression. no apparent hallucinations or other psychotic thought process. Diagnostic Tests Laboratory Laboratory Tests Test 05/26/17 04:45 05/27/17 04:50 05/27/17 18:15 05/27/17 21:30 White Blood Count 0.4 TH/MM3 (4.0-11.0) 0.3 TH/MM3 (4.0-11.0) Red Blood Count 2.43 MIL/MM3 (4.50-5.90) 2.22 MIL/MM3 (4.50-5.90) Hemoglobin 7.6 GM/DL (13.0-17.0) 7.0 GM/DL (13.0-17.0) Hematocrit 22.3 % (39.0-51.0) 20.4 % (39.0-51.0) Mean Corpuscular Volume 91.7 FL (80.0-100.0) 91.7 FL (80.0-100.0) Mean Corpuscular Hemoglobin 31.3 PG (27.0-34.0) 31.3 PG (27.0-34.0) Mean Corpuscular Hemoglobin Concent 34.2 % (32.0-36.0) 34.2 % (32.0-36.0) Red Cell Distribution Width 12.8 % (11.6-17.2) 12.9 % (11.6-17.2) Platelet Count 5 TH/MM3 (150-450) 3 TH/MM3 (150-450) 23 TH/MM3 (150-450) Mean Platelet Volume 9.0 FL (7.0-11.0) 8.5 FL (7.0-11.0) CBC Comment AUTO DIFF AUTO DIFF Differential Total Cells Counted 32 100 Neutrophils % (Manual) 47 % (16-70) 21 % (16-70) Band Neutrophils % 16 % (0-6) 21 % (0-6) Lymphocytes % 28 % (9-44) 36 % (9-44) Eosinophils % 3 % (0-4) 6 % (0-4) Neutrophils # (Manual) 0.3 TH/MM3 (1.8-7.7) 0.1 TH/MM3 (1.8-7.7) Metamyelocytes 3 % (0-1) 1 % (0-1) Myelocytes 3 % (0-0) 1 % (0-0) Differential Comment FINAL DIFF MANUAL FINAL DIFF MANUAL Dohle Bodies PRESENT (NONE SEEN) PRESENT (NONE SEEN) Platelet Estimate RARE (NORMAL) RARE (NORMAL) Platelet Morphology Comment NORMAL (NORMAL) NORMAL (NORMAL) Helmet Cells OCC (NORMAL) Rouleau PRESENT (NORMAL) PRESENT (NORMAL) Prothrombin Time 11.5 SEC (9.8-11.6) Prothromb Time International Ratio 1.1 RATIO Activated Partial Thromboplast Time 27.1 SEC (24.3-30.1) Fibrinogen 416 mg/dL (227-377) Blood Urea Nitrogen 79 MG/DL (7-18) 65 MG/DL (7-18) Creatinine 1.53 MG/DL (0.60-1.30) 1.54 MG/DL (0.60-1.30) Random Glucose 146 MG/DL (74-106) 133 MG/DL (74-106) Calcium Level 8.1 MG/DL (8.5-10.1) 7.9 MG/DL (8.5-10.1) Sodium Level 154 MEQ/L (136-145) 155 MEQ/L (136-145) Potassium Level 3.0 MEQ/L (3.5-5.1) 2.7 MEQ/L (3.5-5.1) Chloride Level 130 MEQ/L (98-107) 127 MEQ/L (98-107) Carbon Dioxide Level 15.4 MEQ/L (21.0-32.0) 15.4 MEQ/L (21.0-32.0) Anion Gap 9 MEQ/L (5-15) 13 MEQ/L (5-15) Estimat Glomerular Filtration Rate 45 ML/MIN (>89) 44 ML/MIN (>89) Monocytes % 14 % (0-8) Toxic Granulation 2+ (NORMAL) Total Protein 4.6 GM/DL (6.4-8.2) Albumin 1.9 GM/DL (3.4-5.0) Magnesium Level 2.4 MG/DL (1.5-2.5) Alkaline Phosphatase 42 U/L (45-117) Aspartate Amino Transf (AST/SGOT) 12 U/L (15-37) Alanine Aminotransferase (ALT/SGPT) 46 U/L (12-78) Total Bilirubin 0.5 MG/DL (0.2-1.0) Urine Color YELLOW (YELLW/STRAW) Urine Turbidity CLEAR (CLEAR) Urine pH 5.5 (5.0-8.5) Urine Specific [place] 1.013 (1.002-1.035) Urine Protein TRACE mg/dL (NEG-TRACE) Urine Glucose (UA) NEG mg/dL (NEG) Urine Ketones NEG mg/dL (NEG) Urine Occult Blood NEG (NEG) Urine Nitrite NEG (NEG) Urine Bilirubin NEG (NEG) Urine Urobilinogen LESS THAN 2.0 MG/DL (LESS Urine Leukocyte Esterase NEG (NEG) Urine RBC 1 /hpf (0-3) Urine WBC 2 /hpf (0-5) Urine Squamous Epithelial Cells 1 /hpf (0-5) Urine Amorphous Sediment RARE Urine Mucus FEW /lpf (OCC) Test 05/28/17 06:30 White Blood Count 0.5 TH/MM3 (4.0-11.0) Red Blood Count 2.49 MIL/MM3 (4.50-5.90) Hemoglobin 7.7 GM/DL (13.0-17.0) Hematocrit 22.5 % (39.0-51.0) Mean Corpuscular Volume 90.6 FL (80.0-100.0) Mean Corpuscular Hemoglobin 30.9 PG (27.0-34.0) Mean Corpuscular Hemoglobin Concent 34.2 % (32.0-36.0) Red Cell Distribution Width 13.3 % (11.6-17.2) Platelet Count 16 TH/MM3 (150-450) Mean Platelet Volume 7.6 FL (7.0-11.0) CBC Comment AUTO DIFF Differential Total Cells Counted 100 Neutrophils % (Manual) 30 % (16-70) Band Neutrophils % 28 % (0-6) Lymphocytes % 19 % (9-44) Monocytes % 13 % (0-8) Eosinophils % 9 % (0-4) Neutrophils # (Manual) 0.3 TH/MM3 (1.8-7.7) Metamyelocytes 1 % (0-1) Differential Comment FINAL DIFF MANUAL Toxic Granulation 1+ (NORMAL) Toxic Vacuolation PRESENT (NONE SEEN) Dohle Bodies PRESENT (NONE SEEN) Platelet Estimate RARE (NORMAL) Platelet Morphology Comment NORMAL (NORMAL) Rouleau PRESENT (NORMAL) Blood Urea Nitrogen 51 MG/DL (7-18) Creatinine 1.51 MG/DL (0.60-1.30) Random Glucose 143 MG/DL (74-106) Calcium Level 8.3 MG/DL (8.5-10.1) Sodium Level 157 MEQ/L (136-145) Potassium Level 2.5 MEQ/L (3.5-5.1) Chloride Level 130 MEQ/L (98-107) Carbon Dioxide Level 17.4 MEQ/L (21.0-32.0) Anion Gap 10 MEQ/L (5-15) Estimat Glomerular Filtration Rate 45 ML/MIN (>89) Result Diagram: 05/28/1762905/28/17629 Microbiology Microbiology Date/Time Source Procedure Growth Status 05/27/17 21:30 Blood Line Aerobic Blood Culture - Preliminary NO GROWTH IN 1 DAY Resulted 05/27/17 21:30 Blood Line Anaerobic Blood Culture - Preliminary NO GROWTH IN 1 DAY Resulted 05/27/17 15:06 Blood Peripheral Aerobic Blood Culture - Preliminary NO GROWTH IN 1 DAY Resulted 05/27/17 15:06 Blood Peripheral Anaerobic Blood Culture - Preliminary NO GROWTH IN 1 DAY Resulted 05/27/17 11:15 Blood Peripheral Aerobic Blood Culture - Preliminary NO GROWTH IN 1 DAY Resulted 05/27/17 11:15 Blood Peripheral Anaerobic Blood Culture - Preliminary NO GROWTH IN 1 DAY Resulted Imaging Last Impressions Lower Extremity Ultrasound 05/27/17 0000 Signed Impressions: Service Date/Time: Saturday, May 27, 2017 07:56 - CONCLUSION: Negative examination. No evidence of DVT. Randolph Heart MD ADDENDUM: Incidentally omitted is no indication that there is thrombus in the right greater saphenous vein Randolph Heart MD Chest X-Ray 05/27/17 0000 Signed Impressions: Service Date/Time: Saturday, May 27, 2017 10:44 - CONCLUSION: 1. Right basilar pleural-parenchymal density which is more prominent on current study. Yung Lim MD Abdomen X-Ray 05/24/17 0000 Signed Impressions: Service Date/Time: Wednesday, May 24, 2017 15:55 - CONCLUSION: Nonspecific bowel gas pattern with moderately distended loops of small bowel in the left upper quadrant. Most likely to represent ileus. Gerald Preciado MD Venous Access Device Injection 05/23/17 0000 Signed Impressions: Service Date/Time: Tuesday, May 23, 2017 17:18 - CONCLUSION: 1. Port catheter and tubing are intact. 2. Port tip projects over the central venous system. There appears to be a persistent fibrin sheath at the catheter tip despite recent TPA infusion. Derek Davis MD Thoracentesis Ultrasound 05/22/17 0000 Signed Impressions: Service Date/Time: April 14:56 - CONCLUSION: Uncomplicated ultrasound guided right thoracentesis. Sampling was not requested. Quinn Huang Jr., MD Abdomen/Pelvis CT 05/22/17 0000 Signed Impressions: Service Date/Time: April 13:32 - CONCLUSION: 1. Diffuse metastatic disease to the visualized bony structures, left adrenal gland, and visualized lung parenchyma. Special note is made of destructive lesions involving the T10 and L1 levels that involve the left neural foramen and could be possible source of the left radiculopathy. 2. Large right-sided pleural effusion. 3. Prior cholecystectomy. Quinn Huang Jr., MD Patient/Family Conference Present at Family Conference: Microbiology Date/Time Source Procedure Growth Status 05/27/17 21:30 Blood Line Aerobic Blood Culture - Preliminary NO GROWTH IN 1 DAY Resulted 05/27/17 21:30 Blood Line Anaerobic Blood Culture - Preliminary NO GROWTH IN 1 DAY Resulted Family Conference Time (mins): 30 Family Conference Location: Bedside Issues Discussed: * Palliative care role, purpose, approach * Additional medical, psychosocial, and spiritual history * Patients general health, functional status, and cognitive changes in the months leading up to the current hospitalization * Patient/family understanding of the current medical problems * Patient/family understanding of prognosis * Patients goals of care as best understood from advance directives and/or conversations and/or values * Current medical treatment options and benefits/burdens of those options * Likely scenarios comparing ongoing aggressive care with a transition to comfort measures only * Questions answered to the best of my ability * Palliative care contact information provided Assessment and Plan Disease Oriented Problem List: (1) Neutropenia (2) Pleural effusion (3) Lung cancer (4) Renal insufficiency (5) Paroxysmal A-fib (6) Hypernatremia (7) Thrombocytopenia (8) Diarrhea Symptom Scale: (1) Dyspnea (2) Pain Pertinent Non-Medical Issues Psychosocial:selina Sanabria Spiritual: Legal: Ethical issues impacting care: Important Contacts Louie Cain (son) [phone] Gerry Cain (daughter in law) [phone] Prognosis Metastatic lung cancer. Appropriate for hospice if goals are comfort measures only. Code Status: Full Code Plan == capacity- still can make his own medical decisions. == symptoms- dyspnea- 2nd to lung cancer burden, copd, pleural effusion.- continue current managment for now by pulmonology. pain- denies pain, but when present describe it mostly bony pain, mets. Cont fentanyl, dilaudid for breakthrough, I will d/c morphine given renal function. == Code: Full code for now. == Goals of care: On my visit, pt is alert but fatigued. Pt's daughter in law was present at bedside. Discussed course of cancer, and his hospitalization. Talk about my concern that with everything going such as A. fib , renal insufficiency, diarrhea, his functional status is just to weak to continue those treatment. Also spoke discussed that in terms of treatment, they are palliative, and not meant as curative. Discussed code status, and offered DNR/DNI, given that the implementation of life support would not cure his underlying cancer. Goals of care are the following. He would like son to be involved, but has expressed if the oncology feels and comfirms he is not a good candidate for further treatment, he is amenable to "pull the plug." and focus on comfort. Pt is leaning a DNR, but would like his son Elly to be involved, who would be present here tomorrow morning around 10:00am In the mean time he is still a full code. Daughter in law is open towards comfort measures. == palliative care will follow as clinical condition evolves. Thank you for the opportunity to participate in the care of Mr. Acosta. Attestation To help prompt me to consider important information that might be impacting today's encounter and assessment, information from prior notes written by myself or my colleagues may have been "brought forward" into today's note. My signature on this note, however, is an attestation that I personally performed the exam, history, and/or decision-making noted today, and, unless otherwise indicated, the interactions with patient, family, and staff as well as the review of records all occurred today. I also attest that the listed assessment and stated plan reflect my best clinical judgment today based on the combination of historical information, prior notes, and today's exam/ interactions. When time spent is documented, it refers only to time spent today by the signer, or if indicated, combined time spent today by collaborating physician/nurse practitioner. David Nugent MD May 28, 2017 13:59
[2017-05-28] MEDS: FILGRASTIM 480 MCG/1.6 ML VIAL SQ SCH (14:33)
[2017-05-28] MEDS ORDERED: REMOVE OLD PATCH T-DERMAL SCH (17:00)
[2017-05-28] MEDS ORDERED: diphenhydrAMINE HCL 25 MG CAP PO PRN (18:30)
[2017-05-28] MEDS ORDERED: ACETAMINOPHEN 325 MG TAB PO PRN (18:30)
[2017-05-28] MEDS ORDERED: POTASSIUM CHLOR 20 MEQ PREMIX 100 ML IV ONE (18:30)
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
[2017-05-28] MEDS ORDERED: POTASSIUM CHLORIDE INJ 40 MEQ in DEXTROSE 5% IN WATE 1000ML INJ 1,000 ML IV SCH ×2 (20:30)
[2017-05-28] MEDS: POTASSIUM CHLORIDE 25 MEQ EFFERVESCENT TAB NG SCH (21:26)
[2017-05-29] VITALS (30 sets, daily range): BP systolic 96–118; BP diastolic 42–73; PULSE 94–110; RESP 18–32; TEMP 96.9–99.6; O2SAT 96–100
[2017-05-29] MEDS: HYDROmorphone HCL 2 MG TAB PO PRN (00:42)
[2017-05-29] MEDS: DILTIAZEM HCL 60 MG TAB PO SCH ×5 (00:42→23:51)
[2017-05-29] MEDS: CEFEPIME INJ 2,000 MG in SODIUM CHLORIDE 0.9% INJ 100 ML IV SCH (03:32)
[2017-05-29] MEDS: METOPROLOL TARTRATE 25 MG TAB PO SCH ×3 (05:55→20:32)
[2017-05-29] MEDS ORDERED: POTASSIUM CHLOR 20 MEQ PREMIX 100 ML IV ONE (06:00)
[2017-05-29 06:22] LABS: HEMATOCRIT 25.5 % (39.0-51.0); HEMOGLOBIN 8.8 GM/DL (13.0-17.0); MEAN CELL VOLUME 88.5 FL (80.0-100.0); MEAN CORPUSCULAR HEMOGLOBIN 30.4 PG (27.0-34.0); MEAN CORPUSCULAR HGB CONC 34.4 % (32.0-36.0); MEAN PLATELET VOLUME 7.8 FL (7.0-11.0); RED BLOOD COUNT 2.88 MIL/MM3 (4.50-5.90); RED CELL DISTRIBUTION WIDTH 14.8 % (11.6-17.2); WHITE BLOOD COUNT 1.6 TH/MM3 (4.0-11.0)
[2017-05-29 06:42] LABS: PLATELET COUNT 7 TH/MM3 (150-450)
[2017-05-29 06:53] LABS: ALBUMIN 1.9 GM/DL (3.4-5.0); ALKALINE PHOSPHATASE 46 U/L (45-117); ALT (GPT) 52 U/L (12-78); AST (GOT) 12 U/L (15-37); BICARBONATE 16.8 MEQ/L (21.0-32.0); BLOOD UREA NITROGEN 49 MG/DL (7-18); CALCIUM 8.2 MG/DL (8.5-10.1); CHLORIDE 132 MEQ/L (98-107); CREATININE 1.79 MG/DL (0.60-1.30); GLOMERULAR FILTRATION RATE 37 ML/MIN (>89); GLUCOSE,RANDOM 151 MG/DL (74-106); TOTAL BILIRUBIN ADULT 0.4 MG/DL (0.2-1.0)
[2017-05-29 07:05] LABS: SODIUM (NA) 159 MEQ/L (136-145)
[2017-05-29] MEDS: POTASSIUM CHLORIDE 25 MEQ EFFERVESCENT TAB NG SCH ×3 (07:55→21:00)
[2017-05-29] MEDS: LACTOBACILLUS ACIDOPHILUS TAB PO SCH ×2 (07:55→20:33)
[2017-05-29] MEDS: guaiFENesin E.R. 600 MG TAB PO SCH ×2 (07:55→20:32)
[2017-05-29] MEDS: SODIUM CHLORIDE 0.9% FLUSH 10 ML FLUSH IV FLUSH SCH ×2 (07:56→20:33)
[2017-05-29] MEDS: FOLIC ACID 1 MG TAB PO SCH (07:56)
[2017-05-29] MEDS: AMIODARONE 200 MG TAB PO SCH (07:56)
[2017-05-29] MEDS: UMECLIDINIUM 62.5 MCG/VILANTEROL 25 MCG INHALER INH SCH (07:56)
[2017-05-29] MEDS: TAMSULOSIN HCL 0.4 MG CAP PO SCH (07:56)
[2017-05-29] MEDS: MEGESTROL ACETATE SUSP 400 MG/10 ML CUP PO SCH (07:56)
[2017-05-29] MEDS: FINASTERIDE 5 MG TAB PO SCH (07:56)
[2017-05-29] MEDS ORDERED: DEXTROSE 5% IN WATE 1000ML INJ 1,000 ML IV SCH (09:30)
[2017-05-29] MEDS ORDERED: POTASSIUM CHLORIDE INJ 40 MEQ in DEXTROSE 5% IN WATE 1000ML INJ 1,000 ML IV SCH ×2 (09:45)
[2017-05-29] MEDS ORDERED: DEXTROSE 5% IV PRN ×2 (10:15)
[2017-05-29] MEDS ORDERED: WATER IV PRN ×2 (10:15)
[2017-05-29] MEDS ORDERED: DILTIAZEM IV PRN ×2 (10:15)
[2017-05-29 10:23] LABS: BANDS 44 % (0-6); CORRECTED NUCLEATED RBC 1 /100 WBC (0-0); LYMPHOCYTES 9 % (9-44); METAMYELOCYTES 1 % (0-1); MONOCYTES 2 % (0-8); NEUTROPHIL # MANUAL DIFF 1.3 TH/MM3 (1.8-7.7); NUCLEATED RED BLOOD CELL 1 (0-0); POLYS (SEG NEUTROPHILS) 39 % (16-70)
[2017-05-29 10:24] LABS: TOXIC GRANULATION 2+ (NORMAL)
--- NOTE | 2017-05-29 10:46 | HHI.HCPN ---
Reason for visit a. To assist with evaluation and management of symptoms including:dyspnea, pain b. To assist medical decision maker(s) with: better understanding of current medical conditions; weighing benefits/burdens of medical treatment options; making medical treatment decisions. Subjective/Interval History Pt is less alert today, open eyes, acknowledge me but not as interactive. Grimace a bit and hold stomach. Pt did have a dose of pain medicine yesterday. There is report of some hemoptypsis. His plt is lower today and Cr continues to rise. Family/friend interactions Spoke to oncology prior to family meeting today. Met with pt's son Elly who is health care surrogate, and also pt's grandaujosselyn. Discussed the underlying challenges he has besides cancer such has his copd. Discucced his cancer, and the chemo Spoke about code status. At the point the goals are as follows. = family would like to put off transition to comfort measures for the time. = They would like to give him some time to recover a bit from his chemotherapy, and some of the side/effects he is having from it. =They understand because there are other complications going on such as his underlying copd, recurrent. == Should there be a respiratory decline, pt has expressed DNR in the past. Family would like to honor that, however they would like to still buy some time if he gets into respiratory failure. They are amenable to the alternative of Bipap, no intubation. Code status is DNR, but amenable to Bipap. == They are hopeful that at least he can maximize medical treatment, and recover from a bit. == However if there is another major setback, they are open to comfort measures in the future. Advance Directives Health Care Surrogate: Completed, but not made available Objective Vital Signs Date Time Temp Pulse Resp B/P (MAP) Pulse Ox O2 Delivery O2 Flow Rate FiO2 05/29/17 10:06 99.0 05/29/17 10:05 98 30 105/51 100 05/29/17 09:32 98.3 94 30 96/56 99 05/29/17 08:27 21 05/29/17 08:27 21 05/29/17 07:54 99 Room Air 05/29/17 07:42 98.6 96 30 112/42 (65) 99 05/29/17 07:00 96 05/29/17 06:15 98.4 98 32 116/73 (87) 98 05/29/17 03:02 Room Air 05/29/17 03:00 96 05/29/17 02:00 100 05/29/17 01:42 25 05/29/17 01:00 108 05/29/17 00:35 98.6 108 28 113/60 (77) 97 05/29/17 00:35 Room Air 05/29/17 00:10 106 05/28/17 23:00 108 05/28/17 22:00 112 05/28/17 21:22 100.2 112 25 116/58 (77) 98 05/28/17 21:20 Room Air 05/28/17 21:00 110 05/28/17 20:50 100 21 05/28/17 19:55 108 05/28/17 17:00 104 05/28/17 16:00 104 05/28/17 15:11 100 Room Air 05/28/17 15:00 103 05/28/17 14:57 98.0 104 35 125/59 100 05/28/17 14:06 96 05/28/17 14:00 102 05/28/17 13:00 108 05/28/17 12:00 104 05/28/17 11:26 97 Room Air 05/28/17 11:17 97.3 108 30 102/56 100 05/28/17 11:10 30 99 05/28/17 11:00 108 05/28/17 10:57 99.1 108 18 126/63 98 Intake & Output 05/29/17 05/29/17 07:00 19:00 Intake Total 100 ml 189 ml Output Total 100 ml Balance 0 ml 189 ml Intake Oral 100 ml Platelets 189 ml Output Urine Total 100 ml # Voids 1 # Bowel Movements 2 Physical Exam CONSTITUTIONAL/GENERAL: This is an adequately frail gentlemen, fatigued, some tachypnea. TUBES/LINES/DRAINS: SKIN: No jaundice, rashes, or lesions. Ecchymoses on upper extremities. No wounds seen anteriorly. Skin temperature appropriate. Not diaphoretic. HEAD: Atraumatic. Normocephalic. EYES: Pupils equal and round and reactive. Extraocular motions intact. No scleral icterus. No injection or drainage. Fundi not examined. ENT: Hearing grossly normal. Nose without bleeding or purulent drainage. Throat without visible erythema, exudates, masses, or lesions. NECK: Trachea midline. Supple, nontender. No palpable thyroid enlargement or nodularity. CARDIOVASCULAR: Regular rate and rhythm without murmurs, gallops, or rubs. No JVD. Peripheral pulses symmetric. RESPIRATORY/CHEST: Symmetric, . faint rhonchi bilaterally.. GASTROINTESTINAL: Abdomen soft, non-tender, distended. No guarding. Bowel sounds present. GENITOURINARY: Without palpable bladder distension. Hernadez catheter in place. MUSCULOSKELETAL: Extremities without clubbing, cyanosis, or edema. No joint tenderness or effusion noted. No calf tenderness. No mottling or clubbing. LYMPHATICS: No palpable cervical or supraclavicular adenopathy. NEUROLOGICAL: Awake and alert. fatigued Follows commands. Cognitively sharp. Moves all extremities. PSYCHIATRIC: No obvious anxiety/depression. no apparent hallucinations or other psychotic thought process. Diagnostic Tests Laboratory Laboratory Tests Test 05/27/17 04:50 05/27/17 18:15 05/27/17 21:30 05/28/17 06:30 White Blood Count 0.3 TH/MM3 (4.0-11.0) 0.5 TH/MM3 (4.0-11.0) Red Blood Count 2.22 MIL/MM3 (4.50-5.90) 2.49 MIL/MM3 (4.50-5.90) Hemoglobin 7.0 GM/DL (13.0-17.0) 7.7 GM/DL (13.0-17.0) Hematocrit 20.4 % (39.0-51.0) 22.5 % (39.0-51.0) Mean Corpuscular Volume 91.7 FL (80.0-100.0) 90.6 FL (80.0-100.0) Mean Corpuscular Hemoglobin 31.3 PG (27.0-34.0) 30.9 PG (27.0-34.0) Mean Corpuscular Hemoglobin Concent 34.2 % (32.0-36.0) 34.2 % (32.0-36.0) Red Cell Distribution Width 12.9 % (11.6-17.2) 13.3 % (11.6-17.2) Platelet Count 3 TH/MM3 (150-450) 23 TH/MM3 (150-450) 16 TH/MM3 (150-450) Mean Platelet Volume 8.5 FL (7.0-11.0) 7.6 FL (7.0-11.0) CBC Comment AUTO DIFF AUTO DIFF Differential Total Cells Counted 100 100 Neutrophils % (Manual) 21 % (16-70) 30 % (16-70) Band Neutrophils % 21 % (0-6) 28 % (0-6) Lymphocytes % 36 % (9-44) 19 % (9-44) Monocytes % 14 % (0-8) 13 % (0-8) Eosinophils % 6 % (0-4) 9 % (0-4) Neutrophils # (Manual) 0.1 TH/MM3 (1.8-7.7) 0.3 TH/MM3 (1.8-7.7) Metamyelocytes 1 % (0-1) 1 % (0-1) Myelocytes 1 % (0-0) Differential Comment FINAL DIFF MANUAL FINAL DIFF MANUAL Toxic Granulation 2+ (NORMAL) 1+ (NORMAL) Dohle Bodies PRESENT (NONE SEEN) PRESENT (NONE SEEN) Platelet Estimate RARE (NORMAL) RARE (NORMAL) Platelet Morphology Comment NORMAL (NORMAL) NORMAL (NORMAL) Rouleau PRESENT (NORMAL) PRESENT (NORMAL) Blood Urea Nitrogen 65 MG/DL (7-18) 51 MG/DL (7-18) Creatinine 1.54 MG/DL (0.60-1.30) 1.51 MG/DL (0.60-1.30) Random Glucose 133 MG/DL (74-106) 143 MG/DL (74-106) Total Protein 4.6 GM/DL (6.4-8.2) Albumin 1.9 GM/DL (3.4-5.0) Calcium Level 7.9 MG/DL (8.5-10.1) 8.3 MG/DL (8.5-10.1) Magnesium Level 2.4 MG/DL (1.5-2.5) Alkaline Phosphatase 42 U/L (45-117) Aspartate Amino Transf (AST/SGOT) 12 U/L (15-37) Alanine Aminotransferase (ALT/SGPT) 46 U/L (12-78) Total Bilirubin 0.5 MG/DL (0.2-1.0) Sodium Level 155 MEQ/L (136-145) 157 MEQ/L (136-145) Potassium Level 2.7 MEQ/L (3.5-5.1) 2.5 MEQ/L (3.5-5.1) Chloride Level 127 MEQ/L (98-107) 130 MEQ/L (98-107) Carbon Dioxide Level 15.4 MEQ/L (21.0-32.0) 17.4 MEQ/L (21.0-32.0) Anion Gap 13 MEQ/L (5-15) 10 MEQ/L (5-15) Estimat Glomerular Filtration Rate 44 ML/MIN (>89) 45 ML/MIN (>89) Urine Color YELLOW (YELLW/STRAW) Urine Turbidity CLEAR (CLEAR) Urine pH 5.5 (5.0-8.5) Urine Specific [place] 1.013 (1.002-1.035) Urine Protein TRACE mg/dL (NEG-TRACE) Urine Glucose (UA) NEG mg/dL (NEG) Urine Ketones NEG mg/dL (NEG) Urine Occult Blood NEG (NEG) Urine Nitrite NEG (NEG) Urine Bilirubin NEG (NEG) Urine Urobilinogen LESS THAN 2.0 MG/DL (LESS Urine Leukocyte Esterase NEG (NEG) Urine RBC 1 /hpf (0-3) Urine WBC 2 /hpf (0-5) Urine Squamous Epithelial Cells 1 /hpf (0-5) Urine Amorphous Sediment RARE Urine Mucus FEW /lpf (OCC) Toxic Vacuolation PRESENT (NONE SEEN) Test 05/29/17 06:07 White Blood Count 1.6 TH/MM3 (4.0-11.0) Red Blood Count 2.88 MIL/MM3 (4.50-5.90) Hemoglobin 8.8 GM/DL (13.0-17.0) Hematocrit 25.5 % (39.0-51.0) Mean Corpuscular Volume 88.5 FL (80.0-100.0) Mean Corpuscular Hemoglobin 30.4 PG (27.0-34.0) Mean Corpuscular Hemoglobin Concent 34.4 % (32.0-36.0) Red Cell Distribution Width 14.8 % (11.6-17.2) Platelet Count 7 TH/MM3 (150-450) Mean Platelet Volume 7.8 FL (7.0-11.0) CBC Comment AUTO DIFF Differential Total Cells Counted 100 Neutrophils % (Manual) 39 % (16-70) Band Neutrophils % 44 % (0-6) Lymphocytes % 9 % (9-44) Monocytes % 2 % (0-8) Eosinophils % 5 % (0-4) Neutrophils # (Manual) 1.3 TH/MM3 (1.8-7.7) Metamyelocytes 1 % (0-1) Nucleated Red Blood Cells 1 /100 WBC (0-0) Differential Comment FINAL DIFF MANUAL Toxic Granulation 2+ (NORMAL) Platelet Estimate RARE (NORMAL) Platelet Morphology Comment NORMAL (NORMAL) Blood Urea Nitrogen 49 MG/DL (7-18) Creatinine 1.79 MG/DL (0.60-1.30) Random Glucose 151 MG/DL (74-106) Total Protein 5.0 GM/DL (6.4-8.2) Albumin 1.9 GM/DL (3.4-5.0) Calcium Level 8.2 MG/DL (8.5-10.1) Alkaline Phosphatase 46 U/L (45-117) Aspartate Amino Transf (AST/SGOT) 12 U/L (15-37) Alanine Aminotransferase (ALT/SGPT) 52 U/L (12-78) Total Bilirubin 0.4 MG/DL (0.2-1.0) Sodium Level 159 MEQ/L (136-145) Potassium Level 3.2 MEQ/L (3.5-5.1) Chloride Level 132 MEQ/L (98-107) Carbon Dioxide Level 16.8 MEQ/L (21.0-32.0) Anion Gap 10 MEQ/L (5-15) Estimat Glomerular Filtration Rate 37 ML/MIN (>89) Result Diagram: 05/29/17 0607 05/29/17 0607 Microbiology Microbiology Date/Time Source Procedure Growth Status 05/27/17 21:30 Blood Line Aerobic Blood Culture - Preliminary NO GROWTH IN 1 DAY Resulted 05/27/17 21:30 Blood Line Anaerobic Blood Culture - Preliminary NO GROWTH IN 1 DAY Resulted 05/27/17 15:06 Blood Peripheral Aerobic Blood Culture - Preliminary NO GROWTH IN 1 DAY Resulted 05/27/17 15:06 Blood Peripheral Anaerobic Blood Culture - Preliminary NO GROWTH IN 1 DAY Resulted 05/27/17 11:15 Blood Peripheral Aerobic Blood Culture - Preliminary NO GROWTH IN 1 DAY Resulted 05/27/17 11:15 Blood Peripheral Anaerobic Blood Culture - Preliminary NO GROWTH IN 1 DAY Resulted Assessment and Plan Disease Oriented Problem List: (1) Neutropenia (2) Pleural effusion (3) Lung cancer (4) Renal insufficiency (5) Paroxysmal A-fib (6) Hypernatremia (7) Thrombocytopenia (8) Diarrhea Symptom Scale: (1) Dyspnea (2) Pain Pertinent Non-Medical Issues Psychosocial:selina Sanabria Spiritual: Legal: Ethical issues impacting care: Important Contacts Louie Cain (son) [phone] Gerry Cain (daughter in law) [phone] Prognosis Metastatic lung cancer. Appropriate for hospice if goals are comfort measures only. Code Status: No Code Plan == capacity- no capacity today. == symptoms- dyspnea- 2nd to lung cancer burden, copd, pleural effusion.- defer to by pulmonology. pain- denies pain, but when present describe it mostly bony pain, mets. Cont fentanyl, dilaudid for breakthrough, I will d/c morphine given renal function. == Decision maker is : selina Acosta. == Code: DNR. but Amenable to Bipap == Goals of care: Spoke to oncology prior to family meeting today. Met with pt's son Elly who is health care surrogate, and met with pt's leannjuan josetroy. Discussed the underlying challenges he has besides cancer such has his copd. Discucced his cancer, and the chemo Spoke about code status. At this point in time the goals are as follows. = family would like to put off transition to comfort measures for the time being. = They would like to give him some time to recover a bit from his chemotherapy, and from lorri of the side/effects he is having from it. =They understand because there are other complications going on such as his underlying copd, this poses a challenge to his recovery. == Should there be a respiratory decline, pt has had expressed DNR in the past. Family would like to honor that, however they would like to still buy some time if he gets into respiratory failure. They are amenable to the alternative of Bipap, no intubation. Code status is DNR, but amenable to Bipap. == They are hopeful that at least we can maximize medical treatment, and recover a bit. == However if there is another major setback, they are open to comfort measures in the future. == palliative care will follow as clinical condition evolves. case d/w with oncology. Attestation To help prompt me to consider important information that might be impacting today's encounter and assessment, information from prior notes written by myself or my colleagues may have been "brought forward" into today's note. My signature on this note, however, is an attestation that I personally performed the exam, history, and/or decision-making noted today, and, unless otherwise indicated, the interactions with patient, family, and staff as well as the review of records all occurred today. I also attest that the listed assessment and stated plan reflect my best clinical judgment today based on the combination of historical information, prior notes, and today's exam/ interactions. When time spent is documented, it refers only to time spent today by the signer, or if indicated, combined time spent today by collaborating physician/nurse practitioner. David Nugent MD May 29, 2017 10:46
--- NOTE | 2017-05-29 11:44 | PD.ONC.PN ---
Subjective Subjective Remarks Late entry, patient seen at 8AM. Afebrile overnight. Patient coughed up bloody sputum this AM. He remains confused. Objective Data Date Time Temp Pulse Resp B/P (MAP) Pulse Ox O2 Delivery O2 Flow Rate FiO2 05/29/17 10:06 99.0 05/29/17 10:05 98 30 105/51 100 05/29/17 10:00 94 05/29/17 09:32 98.3 94 30 96/56 99 05/29/17 09:00 94 05/29/17 08:27 21 05/29/17 08:27 21 05/29/17 08:00 96 05/29/17 07:54 99 Room Air 05/29/17 07:42 98.6 96 30 112/42 (65) 99 05/29/17 07:00 96 05/29/17 06:15 98.4 98 32 116/73 (87) 98 05/29/17 03:02 Room Air 05/29/17 03:00 96 05/29/17 02:00 100 05/29/17 01:42 25 05/29/17 01:00 108 05/29/17 00:35 98.6 108 28 113/60 (77) 97 05/29/17 00:35 Room Air 05/29/17 00:10 106 05/28/17 23:00 108 05/28/17 22:00 112 05/28/17 21:22 100.2 112 25 116/58 (77) 98 05/28/17 21:20 Room Air 05/28/17 21:00 110 05/28/17 20:50 100 21 05/28/17 19:55 108 05/28/17 17:00 104 05/28/17 16:00 104 05/28/17 15:11 100 Room Air 05/28/17 15:00 103 05/28/17 14:57 98.0 104 35 125/59 100 05/28/17 14:06 96 05/28/17 14:00 102 05/28/17 13:00 108 05/28/17 12:00 104 05/29/17 05/29/17 05/29/17 07:00 15:00 23:00 Intake Total 289 ml Balance 289 ml Result Diagram: 05/29/1760605/29/17606 Laboratory Results Laboratory Tests Test 05/29/17 06:07 05/29/17 11:20 White Blood Count 1.6 TH/MM3 Red Blood Count 2.88 MIL/MM3 Hemoglobin 8.8 GM/DL Hematocrit 25.5 % Mean Corpuscular Volume 88.5 FL Mean Corpuscular Hemoglobin 30.4 PG Mean Corpuscular Hemoglobin Concent 34.4 % Red Cell Distribution Width 14.8 % Platelet Count 7 TH/MM3 Mean Platelet Volume 7.8 FL CBC Comment AUTO DIFF Differential Total Cells Counted 100 Neutrophils % (Manual) 39 % Band Neutrophils % 44 % Lymphocytes % 9 % Monocytes % 2 % Eosinophils % 5 % Neutrophils # (Manual) 1.3 TH/MM3 Metamyelocytes 1 % Nucleated Red Blood Cells 1 /100 WBC Differential Comment FINAL DIFF MANUAL Toxic Granulation 2+ Platelet Estimate RARE Platelet Morphology Comment NORMAL Blood Urea Nitrogen 49 MG/DL Creatinine 1.79 MG/DL Random Glucose 151 MG/DL Total Protein 5.0 GM/DL Albumin 1.9 GM/DL Calcium Level 8.2 MG/DL Alkaline Phosphatase 46 U/L Aspartate Amino Transf (AST/SGOT) 12 U/L Alanine Aminotransferase (ALT/SGPT) 52 U/L Total Bilirubin 0.4 MG/DL Sodium Level 159 MEQ/L Potassium Level 3.2 MEQ/L Chloride Level 132 MEQ/L Carbon Dioxide Level 16.8 MEQ/L Anion Gap 10 MEQ/L Estimat Glomerular Filtration Rate 37 ML/MIN Culture Results Microbiology Date/Time Source Procedure Growth Status 05/27/17 21:30 Blood Line Aerobic Blood Culture - Preliminary NO GROWTH IN 2 DAYS Resulted 05/27/17 21:30 Blood Line Anaerobic Blood Culture - Preliminary NO GROWTH IN 2 DAYS Resulted 05/27/17 15:06 Blood Peripheral Aerobic Blood Culture - Preliminary NO GROWTH IN 2 DAYS Resulted 05/27/17 15:06 Blood Peripheral Anaerobic Blood Culture - Preliminary NO GROWTH IN 2 DAYS Resulted 05/27/17 11:15 Blood Peripheral Aerobic Blood Culture - Preliminary NO GROWTH IN 2 DAYS Resulted 05/27/17 11:15 Blood Peripheral Anaerobic Blood Culture - Preliminary NO GROWTH IN 2 DAYS Resulted Administered Medications Medications (Trade) Dose Ordered Sig/Javier Route PRN Reason Start Time Stop Time Status Last Admin Dose Admin Sodium Chloride (NS Flush) 2 ml UNSCH PRN IV FLUSH FLUSH AFTER USING IV ACCESS 05/22/17 13:45 05/26/17 06:28 Sodium Chloride (NS Flush) 2 ml BID IV FLUSH 05/22/17 21:00 05/29/17 07:56 Ondansetron HCl (Zofran Inj) 4 mg Q6H PRN IVP NAUSEA OR VOMITING 05/22/17 13:45 05/24/17 02:19 Guaifenesin (Mucinex Er) 1,200 mg BID PO 05/22/17 14:30 05/29/17 07:55 Folic Acid (Folate) 1 mg DAILY PO 05/23/17 09:00 05/29/17 07:56 Filgrastim (Neupogen Inj) 480 mcg DAILY@14 SQ 05/22/17 18:00 05/28/17 14:33 Hydromorphone HCl (Dilaudid) 2 mg Q4H PRN PO PAIN SCALE 4 TO 7 05/22/17 19:45 05/29/17 00:42 Heparin Sodium (Porcine) (Heparin Central Flush) 250 units UNSCH PRN IV FLUSH SEE PROTOCOL TABLE 05/23/17 05:30 05/23/17 05:59 Heparin Sodium (Porcine) (Heparin Central Flush) 500 units UNSCH IV FLUSH 05/23/17 05:30 05/28/17 06:45 Sodium Chloride (NS Flush) 5 ml UNSCH PRN IV FLUSH FLUSH AFTER USING IV ACCESS 05/23/17 05:30 05/28/17 06:45 Alteplase, Recombinant (Cathflo Activase Inj) 2 mg Q2H PRN INTRACATH clotted catheter 05/23/17 10:00 05/23/17 10:42 Finasteride (Proscar) 5 mg DAILY PO 05/23/17 11:00 05/29/17 07:56 Tamsulosin HCl (Flomax) 0.4 mg DAILY PO 05/23/17 11:00 05/29/17 07:56 Albuterol/ Ipratropium (Duoneb Neb) 1 ampule Q6HR NEB PRN INH sob 05/23/17 13:00 05/28/17 09:17 Megestrol Acetate (Megace Liq) 400 mg DAILY PO 05/24/17 09:00 05/29/17 07:56 Metoprolol Tartrate (Lopressor) 25 mg Q8HR PO 05/23/17 22:00 05/29/17 05:55 Pantoprazole Sodium (Protonix Inj) 40 mg Q24H IV PUSH 05/24/17 12:00 05/28/17 12:21 Diltiazem HCl (Cardizem) 60 mg Q6HR PO 05/24/17 12:00 05/29/17 05:55 Amiodarone HCl (Cordarone) 200 mg DAILY PO 05/25/17 09:00 05/29/17 07:56 Lactobacillus Acidophilus (Lactinex) 1 tab Q12HR PO 05/24/17 21:00 05/29/17 07:55 Potassium Bicarb/ Potassium Chloride (K-Lyte Cl Eff) 25 meq Q12HR NG 05/28/17 21:00 05/29/17 07:55 Potassium Chloride 40 meq/ Dextrose 1,020 ml @ 42 mls/hr Q24H IV 05/28/17 20:30 05/29/17 20:29 05/28/17 21:55 Objective Remarks GENERAL: Elderly male, sitting up in bed, confused. SKIN: Warm and dry. p HEAD: Normocephalic. EYES: No injection or drainage. NECK: Supple, trachea midline. CARDIOVASCULAR: IRR RESPIRATORY: scattered rhonchi. GASTROINTESTINAL: Abdomen soft, non-tender, nondistended. EXTREMITIES: No cyanosis NEUROLOGICAL: awake. oriented to place, when I ask where he is he states "hospital" unable to tell me his name of the date. Assessment/Plan Problem List: (1) Lung cancer ICD Codes: C34.90 - Malignant neoplasm of unspecified part of unspecified bronchus or lung Status: Acute Plan: --will plan further treatment outpatient once recovered from current hospitalization. History: -- found to have a large pleural based mass in the medial aspect of the right upper lobe with bony metastatic disease. --CT/PET scan shows evidence of metastatic disease to the left adrenal gland in addition to a right pleural effusion and questionable solitary metastatic lesion to the liver. --Biopsy showed a poorly differentiated non-small cell lung cancer, adenocarcinoma histology. EGFR, ALK, PD-L1 are still pending. --was offered palliative chemotherapy with carboplatin and Alimta on April. Neulasta was requested through his insurance company, but was denied given that the stated risk of neutropenic fever associated with Alimta and carboplatin is only 5%. 05/28/17. s/p first cycle Carbo/Alimta. Noted to have significant cytopenia post first tx. Counts appear to have manpreet. No chemo planned until recovery. (2) Pain ICD Codes: R52 - Pain, unspecified Plan: --on PO Dilaudid for breakthrough pain. Pain: --CT abdomen and pelvis showed diffuse mets to the bony structures and a destructive lesion at T10 and 11 that is probably a source of his radiculopathy. other sites are being targeted with radiation. 05/28/17. Fentanyl patch removed due to confusion. Isaac controlled on prn meds. Less confusion (3) Renal insufficiency ICD Codes: N28.9 - Disorder of kidney and ureter, unspecified Status: Acute Plan: 05/29: continuing to worsen, nephrology consulted. 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 on D5W, consult nephrology (5) Thrombocytopenia ICD Codes: D69.6 - Thrombocytopenia, unspecified Plan: --continue to transfuse as needed. (6) Neutropenic fever ICD Codes: D70.9 - Neutropenia, unspecified; R50.81 - Fever presenting with conditions classified elsewhere Plan: --on Neupogen + antibiotics. --BC no growth. Assessment 76y/o male with metastatic NSCLC admitted with chemotherapy induced neutropenia , worsening pleural effusion, worsened renal insufficiency and hypotension. --s/ p thoracentesis. h/o COPD Chronic pain Chronic tobacco use Metastatic [id number] lung cancer adenocarcinoma Histology. Chronic renal insufficiency Chronic anemia Plan 1. continue Neupogen 2. give platelets. 3. consult nephrology 4. increase D5W for worsening hypernatremia Attending Statement The exam, history, and the medical decision-making described in the above note were completed with the assistance of the mid-level provider. I reviewed and agree with the findings presented. I attest that I had a [id number] encounter with the patient on the same day, and personally performed and documented my assessment and findings in the medical record. Clinical worsening, platelet low, hemoptysis, more congestion, weaker. Hypernatremia paraneoplastic process, no response to D5W correction, K still low but better. Pain controlled with prn pain meds but makes him too lethargic. Met with family at bedside, he wants to go home - home hospice, family agree Discussed with Dr. Davison, no chemo planned unless pt recover his KPS but he continues to decline daily Pt still recovering from toxicity of chemo, more likely suffering from progression of his disease. 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 Nephrology consulted. Discussed w/ Dr. Young who concur with palliation. Problem Qualifiers (1) Lung cancer: Qualified Codes: C34.90 - Malignant neoplasm of unspecified part of unspecified bronchus or lung Rosalinda Milian May 29, 2017 11:44 Tavia Gregorio MD May 29, 2017 15:29
[2017-05-29] MEDS ORDERED: FUROSEMIDE 20 MG/2 ML VIAL IV PUSH ONE (12:45)
[2017-05-29] MEDS ORDERED: MORPHINE SULFATE 2 MG/ML INJ IV PUSH ONE (13:00)
[2017-05-29] MEDS ORDERED: HYOSCYAMINE 0.125 MG TAB PO PRN (13:00)
--- NOTE | 2017-05-29 13:44 | PD.CONS ---
HPI Service Nephrology Consult Requested By Dr. 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 T10-L1 and possible liver, he has received chemotherapy and radiation and has been feeling sick he has vomiting and diarrhea and feeling weak and tired lethargic with increasing shortness of breath the crackles and she was given Lasix he is getting IV fluids his sodium is 159 and creatinine is slowly rising, patient is being treated for pneumonia as well Review of Systems Constitutional: COMPLAINS OF: Fatigue Respiratory: COMPLAINS OF: Cough, Wheezing, Sputum production, Shortness of breath Cardiovascular: COMPLAINS OF: Dyspnea on Exertion, Lower Extremity Edema Musculoskeletal: COMPLAINS OF: Joint pain, Back pain Neurologic: COMPLAINS OF: Abnormal gait Past Family Social History Allergies: Coded Allergies: No Known Allergies (Unverified , 05/06/14) Past Medical History Non-small cell lung cancer with metastases to the bone Hypertension Tobacco dependence Past Surgical History Left knee arthroscopically Cholecystectomy Biopsy of the lungs Reported Medications Reported Meds & Active Scripts Active Reported Pomegranate (Pomegranate Fruit Extract) 250 Mg Capsule 250 Mg PO DAILY Resveratrol 250 Mg Cap 250 Mg PO DAILY Coq-10 Tr (Coenzyme Q10 (Ubidecarenone)) 100 Mg Cap 100 Mg PO DAILY Oceanic Selenium (Selenium) 50 Mcg Tab 50 Mcg PO DAILY Vitamin E (Vitamin E Acid Succinate) 400 Unit Tablet 400 Units PO DAILY Vitamin C (Ascorbic Acid) 250 Mg Tab 500 Mg PO DAILY Vitamin A 25,000 Unit Capsule 25,000 Units PO DAILY Imodium A-D (Loperamide HCl) 2 Mg Capsule 2 Mg PO DIRECTED PRN One capsule after each loose stool. Not to exceed 4 tablets per day. Lactulose Liq (Lactulose) 10 Gm/15 Ml Soln 15 Ml PO Q6H PRN Prochlorperazine Maleate 10 Mg Tab 10 Mg PO HS Zofran (Ondansetron HCl) 8 Mg Tab 8 Mg PO TID [place] (Hydrocodone-Acetaminophen) 7.5-325 mg Tab 1 Tab PO Q4-6H PRN Duragesic Patch 72 HR (Fentanyl) 12 Mcg/Hr Patch 24 Mcg T-DERMAL Q72H Remove old patch when new one placed. Dexamethasone 1 Mg Tab 1 Mg PO DIRECTED Take 1 tablet (1mg) 2 days before & day after Chemo Folic Acid 1 Mg Tablet 1 Mg PO DAILY Spironolactone 50 Mg Tab 50 Mg PO DAILY Finasteride 5 Mg Tab 5 Mg PO DAILY Do not crush. Amlodipine (Amlodipine Besylate) 5 Mg Tab 5 Mg PO DAILY Metoprolol Tartrate 50 Mg Tab 50 Mg PO DAILY Lisinopril 40 Mg Tab 40 Mg PO DAILY Anoro Ellipta Inh (Umeclidinium/Vilanterol) 62.5-25 Mcg/Act Aero 1 Puff INH DAILY Active Ordered Medications Current Medications Medications (Trade) Dose Ordered Sig/Javier Route Start Time Stop Time Status Last Admin (NS Flush) 2 ml UNSCH PRN IV FLUSH 05/22/17 13:45 05/26/17 06:28 (NS Flush) 2 ml BID IV FLUSH 05/22/17 21:00 05/29/17 07:56 (Tylenol) 650 mg Q4H PRN PO 05/22/17 13:45 (Zofran Inj) 4 mg Q6H PRN IVP 05/22/17 13:45 05/24/17 02:19 (Narcan Inj) 0.4 mg UNSCH PRN IV PUSH 05/22/17 13:45 (Mucinex Er) 1,200 mg BID PO 05/22/17 14:30 05/29/17 07:55 (Folate) 1 mg DAILY PO 05/23/17 09:00 05/29/17 07:56 (Neupogen Inj) 480 mcg DAILY@14 SQ 05/22/17 18:00 05/28/17 14:33 (Dilaudid) 2 mg Q4H PRN PO 05/22/17 19:45 05/29/17 00:42 (Heparin Central Flush) 250 units UNSCH PRN IV FLUSH 05/23/17 05:30 05/23/17 05:59 (Heparin Central Flush) 500 units UNSCH IV FLUSH 05/23/17 05:30 05/28/17 06:45 (NS Flush) 5 ml UNSCH PRN IV FLUSH 05/23/17 05:30 05/28/17 06:45 (Cathflo Activase Inj) 2 mg Q2H PRN INTRACATH 05/23/17 10:00 05/23/17 10:42 (Proscar) 5 mg DAILY PO 05/23/17 11:00 05/29/17 07:56 (Flomax) 0.4 mg DAILY PO 05/23/17 11:00 05/29/17 07:56 (Duoneb Neb) 1 ampule Q6HR NEB PRN INH 05/23/17 13:00 05/28/17 09:17 (Megace Liq) 400 mg DAILY PO 05/24/17 09:00 05/29/17 07:56 (Lopressor) 25 mg Q8HR PO 05/23/17 22:00 05/29/17 05:55 (Protonix Inj) 40 mg Q24H IV PUSH 05/24/17 12:00 05/28/17 12:21 (Cardizem) 60 mg Q6HR PO 05/24/17 12:00 05/29/17 05:55 (Cordarone) 200 mg DAILY PO 05/25/17 09:00 05/29/17 07:56 (Lactinex) 1 tab Q12HR PO 05/24/17 21:00 05/29/17 07:55 (K-Lyte Cl Eff) 25 meq Q12HR NG 05/28/17 21:00 05/29/17 07:55 Potassium Chloride 40 meq/ Dextrose 1,020 ml @ 42 mls/hr Q24H IV 05/28/17 20:30 05/29/17 20:29 05/28/17 21:55 (Tylenol) 650 mg Q4H PRN PO 05/28/17 18:30 (Benadryl) 25 mg Q4H PRN PO 05/28/17 18:30 Potassium Chloride 40 meq/ Dextrose 1,020 ml @ 100 mls/hr [id number] IV 05/29/17 09:45 05/29/17 19:56 Cefepime HCl 2000 mg/Dextrose 100 ml @ 200 mls/hr Q12H IV 05/29/17 15:00 Diltiazem HCl 125 mg/Dextrose 125 ml @ 5 mls/hr TITRATE PRN IV 05/29/17 10:15 (Levsin) 0.125 mg Q4H PRN PO 05/29/17 13:00 Family History Noncontributory Social History Smokes half pack per day denies alcohol use or illicit drug Physical Exam Vital Signs Vital Signs Date Time Temp Pulse Resp B/P (MAP) Pulse Ox O2 Delivery O2 Flow Rate FiO2 05/29/17 12:56 100 Room Air 05/29/17 12:47 98.2 104 18 107/62 (77) 99 05/29/17 10:06 99.0 05/29/17 10:05 98 30 105/51 100 05/29/17 10:00 94 05/29/17 09:32 98.3 94 30 96/56 99 05/29/17 09:00 94 05/29/17 08:27 21 05/29/17 08:27 21 05/29/17 08:00 96 05/29/17 07:54 99 Room Air 05/29/17 07:42 98.6 96 30 112/42 (65) 99 05/29/17 07:00 96 05/29/17 06:15 98.4 98 32 116/73 (87) 98 05/29/17 03:02 Room Air 05/29/17 03:00 96 05/29/17 02:00 100 05/29/17 01:42 25 05/29/17 01:00 108 05/29/17 00:35 98.6 108 28 113/60 (77) 97 05/29/17 00:35 Room Air 05/29/17 00:10 106 05/28/17 23:00 108 05/28/17 22:00 112 05/28/17 21:22 100.2 112 25 116/58 (77) 98 05/28/17 21:20 Room Air 05/28/17 21:00 110 05/28/17 20:50 100 21 05/28/17 19:55 108 05/28/17 17:00 104 05/28/17 16:00 104 05/28/17 15:11 100 Room Air 05/28/17 15:00 103 05/28/17 14:57 98.0 104 35 125/59 100 05/28/17 14:06 96 05/28/17 14:00 102 Laboratory Laboratory Tests Test 05/29/17 06:07 05/29/17 11:20 White Blood Count 1.6 Red Blood Count 2.88 Hemoglobin 8.8 Hematocrit 25.5 Mean Corpuscular Volume 88.5 Mean Corpuscular Hemoglobin 30.4 Mean Corpuscular Hemoglobin Concent 34.4 Red Cell Distribution Width 14.8 Platelet Count 7 28 Mean Platelet Volume 7.8 CBC Comment AUTO DIFF Differential Total Cells Counted 100 Neutrophils % (Manual) 39 Band Neutrophils % 44 Lymphocytes % 9 Monocytes % 2 Eosinophils % 5 Neutrophils # (Manual) 1.3 Metamyelocytes 1 Nucleated Red Blood Cells 1 Differential Comment FINAL DIFF MANUAL Toxic Granulation 2+ Platelet Estimate RARE Platelet Morphology Comment NORMAL Blood Urea Nitrogen 49 Creatinine 1.79 Random Glucose 151 Total Protein 5.0 Albumin 1.9 Calcium Level 8.2 Alkaline Phosphatase 46 Aspartate Amino Transf (AST/SGOT) 12 Alanine Aminotransferase (ALT/SGPT) 52 Total Bilirubin 0.4 Sodium Level 159 Potassium Level 3.2 Chloride Level 132 Carbon Dioxide Level 16.8 Anion Gap 10 Estimat Glomerular Filtration Rate 37 Date/Time Source Procedure Growth Status 05/27/17 21:30 Blood Line Aerobic Blood Culture - Preliminary NO GROWTH IN 2 DAYS Resulted 05/27/17 21:30 Blood Line Anaerobic Blood Culture - Preliminary NO GROWTH IN 2 DAYS Resulted 05/24/17 17:15 Nasal Washing Influenza Types A,B Antigen (MONTY) - Final NEGATIVE FOR FLU A AND B ANTIGEN.... Complete Result Diagram: 05/29/17 1120 05/29/17 0607 Assessment and Plan Problem List: (1) KELLIE (acute kidney injury) ICD Codes: N17.9 - Acute kidney failure, unspecified Status: Acute Plan: Patient has progressive renal failure going into multiorgan failure complication of pneumonia with respiratory distress, sepsis with pancytopenia Possible ARDS Lung cancer stage IV poorly differentiated non-small cell Prognosis guarded to poor Continue with IV fluid D5 with potassium supplements Avoid nephrotoxins Avoid dye studies Follow BMP (2) Lung cancer ICD Codes: C34.90 - Malignant neoplasm of unspecified part of unspecified bronchus or lung Status: Acute Plan: Prognosis guarded (3) Hypernatremia ICD Codes: E87.0 - Hyperosmolality and hypernatremia Plan: Due to dehydration (4) Diarrhea ICD Codes: R19.7 - Diarrhea, unspecified Plan: Continue to monitor (5) Thrombocytopenia ICD Codes: D69.6 - Thrombocytopenia, unspecified Plan: Due to septicemia Problem Qualifiers (1) Lung cancer: Qualified Codes: C34.90 - Malignant neoplasm of unspecified part of unspecified bronchus or lung Sudeep Nunes MD May 29, 2017 13:43
[2017-05-29] MEDS: RESP: ALBUTEROL 2.5 MG/IPRATROPIUM 0.5 MG NEB (PRN) INH (13:47)
[2017-05-29] MEDS: FILGRASTIM 480 MCG/1.6 ML VIAL SQ SCH (13:55)
[2017-05-29] MEDS: PANTOPRAZOLE SODIUM 40 MG VIAL IV PUSH SCH (13:55)
--- NOTE | 2017-05-29 14:26 | HHI.PR ---
Subjective Remarks Patient is in bed, appears chronically ill, deteriorating. He is coughing up blood. Shortness of breath. Not able to eat, or family he is coughing when he is trying to eat we'll keep nothing by mouth and asked cause therapy reevaluation. No fever or chills. No abdominal pain. No nausea or vomiting. Objective Vitals Vital Signs Date Time Temp Pulse Resp B/P (MAP) Pulse Ox O2 Delivery O2 Flow Rate FiO2 05/29/17 12:56 100 Room Air 05/29/17 12:47 98.2 104 18 107/62 (77) 99 05/29/17 10:06 99.0 05/29/17 10:05 98 30 105/51 100 05/29/17 10:00 94 05/29/17 09:32 98.3 94 30 96/56 99 05/29/17 09:00 94 05/29/17 08:27 21 05/29/17 08:27 21 05/29/17 08:00 96 05/29/17 07:54 99 Room Air 05/29/17 07:42 98.6 96 30 112/42 (65) 99 05/29/17 07:00 96 05/29/17 06:15 98.4 98 32 116/73 (87) 98 05/29/17 03:02 Room Air 05/29/17 03:00 96 05/29/17 02:00 100 05/29/17 01:42 25 05/29/17 01:00 108 05/29/17 00:35 98.6 108 28 113/60 (77) 97 05/29/17 00:35 Room Air 05/29/17 00:10 106 05/28/17 23:00 108 05/28/17 22:00 112 05/28/17 21:22 100.2 112 25 116/58 (77) 98 05/28/17 21:20 Room Air 05/28/17 21:00 110 05/28/17 20:50 100 21 05/28/17 19:55 108 05/28/17 17:00 104 05/28/17 16:00 104 05/28/17 15:11 100 Room Air 05/28/17 15:00 103 05/28/17 14:57 98.0 104 35 125/59 100 I/O 1/3105/28/17 05/28/17 05/29/17 05/29/17 05/29/17 07:00 15:00 23:00 07:00 15:00 23:00 Intake Total 250 ml 400 ml 1160 ml 289 ml Output Total 300 ml 1300 ml Balance -50 ml 400 ml -140 ml 289 ml Intake Oral 250 ml 1060 ml IV Total 100 ml 100 ml Packed Cells 400 ml Platelets 189 ml Output Urine Total 300 ml 1300 ml # Voids 4 1 # Bowel Movements 2 1 4 1 Result Diagram: 05/29/17 1120 05/29/17 0607 Imaging Last Impressions Lower Extremity Ultrasound 05/27/17 0000 Signed Impressions: Service Date/Time: Saturday, May 27, 2017 07:56 - CONCLUSION: Negative examination. No evidence of DVT. Randolph Haert MD ADDENDUM: Thrombus is present in the right greater saphenous vein. Randolph Heart MD Chest X-Ray 05/27/17 0000 Signed Impressions: Service Date/Time: Saturday, May 27, 2017 10:44 - CONCLUSION: 1. Right basilar pleural-parenchymal density which is more prominent on current study. Yung Lim MD Abdomen X-Ray 05/24/17 0000 Signed Impressions: Service Date/Time: Wednesday, May 24, 2017 15:55 - CONCLUSION: Nonspecific bowel gas pattern with moderately distended loops of small bowel in the left upper quadrant. Most likely to represent ileus. Gerald Preciado MD Venous Access Device Injection 05/23/17 0000 Signed Impressions: Service Date/Time: Tuesday, May 23, 2017 17:18 - CONCLUSION: 1. Port catheter and tubing are intact. 2. Port tip projects over the central venous system. There appears to be a persistent fibrin sheath at the catheter tip despite recent TPA infusion. Derek Davis MD Thoracentesis Ultrasound 05/22/17 0000 Signed Impressions: Service Date/Time: April 14:56 - CONCLUSION: Uncomplicated ultrasound guided right thoracentesis. Sampling was not requested. Quinn Huang Jr., MD Abdomen/Pelvis CT 05/22/17 0000 Signed Impressions: Service Date/Time: April 13:32 - CONCLUSION: 1. Diffuse metastatic disease to the visualized bony structures, left adrenal gland, and visualized lung parenchyma. Special note is made of destructive lesions involving the T10 and L1 levels that involve the left neural foramen and could be possible source of the left radiculopathy. 2. Large right-sided pleural effusion. 3. Prior cholecystectomy. Quinn Huang Jr., MD Objective Remarks GENERAL: in NAD CARDIOVASCULAR: Tachycardic in the 110s rate and rhythm without murmurs, gallops , or rubs. RESPIRATORY: Decreased breath sounds in the right lower area. Otherwise clear to auscultation. Dressing in place on the right side. No accessory muscle use. GASTROINTESTINAL: Abdomen soft,neg TTP, nondistended. Negative for any peritoneal signs. MUSCULOSKELETAL: No cyanosis, or edema. BACK: Nontender without obvious deformity. No CVA tenderness. 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 Chest x-ray shows right-sided pleural effusion that was reviewed by me. -Status post therapeutic thoracentesis on 05/22 by IR. -Drastic improvement in his respiratory after thoracentesis. Maintenance Technician Dr. Young consulted stated that patient is stable can follow up as outpatient. Paroxysmal atrial fibrillation with RVR -Rate better control. Status post Cardizem drip and amiodarone drip. -Now on Cardizem and amiodarone by mouth. Per hide washer would attempt to eventually wean off amiodarone in the next 1-2 weeks. Patient is also not candidate for anticoagulation or aspirin due to thrombocytopenia. On discharge Cardizem can be changed to long-acting. -Echo reviewed with EF of 60-65%. Non-small cell lung cancer with metastases to the bone Hemoptysis 2/2 lung CA -Dr. Gregorio consulted and following. - Pulm also ff Dr Young Pancytopenia secondary to chemotherapy -Status post chemotherapy on Friday -Oncologist managing. - Continue Neupogen -Transfusion per oncologist. Hypotension on admission. -Review labs. Patient is third spacing with low albumin. Decrease oral intake along with diarrhea. -Improved on IV fluids. Status post albumin given. -Resolved. Hypokalemia Worsening Hypernatremia Poss DI -Patient has decreased oral intake and he has been on fluids. DC IVF. Start D5 withKcL supplement as with low K. Give extra potassium bicarb as willgib=ve lasix with blood transfusion . Continue to trend and monitor sodium. Consult nephrology for evaluation, appreciate recommendations. Diarrhea, resolving -Mostly secondary to chemotherapy. C. difficile negative. -Reviewed CT scan of the abdomen which shows metastases to the bones, left adrenal gland, and lungs. -on Lactinex. Abdominal pain -Today abdominal pain resolved. Pain was more in the epigastric area. -Patient on Protonix. -KUB on 05/24 shows ileus. Patient is asymptomatic. Education given to patient that ileus most likely secondary to pain medication in which patient is in a difficult situation since since does have metastases to the bones. Acute on chronic pain secondary to metastatic disease -Pain medication adjusted by oncologist. Patient now on PO Dilaudid. Acute on chronic renal failure -Patient was recently taken off of ibuprofen due to worsening renal function. -Most likely secondary to combination of hypotension and ibuprofen use. Not recommend NSAID use. - Urologist was consulted and stated very unlikely due to BPH. Patient was started on Flomax and Proscar. -Chronic continues to improve. Avoid nephrotoxins. Continue trend creatinine and strict ins and outs. Hypertension -Patient on multiple medication due to age fibrillation with RVR. Failure to thrive -Secondary to cancer and chemotherapy treatment. -On Megace. Dietitian consulted. Tobacco dependence -Patient has decreased amount of cigarettes he is smoking. Smoking cessation. DVT prophylaxis -Chemoprophylaxis held secondary to anticipating thoracentesis. Discharge Planning Poor prognosis. Transfusing 1U pRBCs 05/28/17 Patient is deteriorating consult palliative care Code status DNR Discussed with the patient, nurse, family at bedside, Dr Gregorio, Cris Mccollum MD May 29, 2017 14:26
[2017-05-29] MEDS: WATER IV SCH ×4 (15:00→15:09)
[2017-05-29] MEDS: CEFEPIME IV SCH ×4 (15:00→15:09)
[2017-05-29] MEDS ORDERED: POTASSIUM BICARBONATE 25 MEQ EFFERVESCENT TAB PO ONE (15:00)
[2017-05-29] MEDS: DEXTROSE 5% IV SCH ×4 (15:00→15:09)
[2017-05-29] MEDS ORDERED: MORPHINE SULFATE 2 MG/ML INJ IV PUSH PRN ×2 (15:15→15:30)
--- NOTE | 2017-05-29 19:00 | PD.CARD.PN ---
Subjective Subjective Remarks Patient was seen earlier today, late entry note Patient is weak and tired Heart rates mostly controlled, mildly elevated with pain all over body Objective Medications Current Medications Medications (Trade) Dose Ordered Sig/Javier Route Start Time Stop Time Status Last Admin (NS Flush) 2 ml UNSCH PRN IV FLUSH 05/22/17 13:45 05/26/17 06:28 (NS Flush) 2 ml BID IV FLUSH 05/22/17 21:00 05/29/17 07:56 (Tylenol) 650 mg Q4H PRN PO 05/22/17 13:45 (Zofran Inj) 4 mg Q6H PRN IVP 05/22/17 13:45 05/24/17 02:19 (Narcan Inj) 0.4 mg UNSCH PRN IV PUSH 05/22/17 13:45 (Mucinex Er) 1,200 mg BID PO 05/22/17 14:30 05/29/17 07:55 (Folate) 1 mg DAILY PO 05/23/17 09:00 05/29/17 07:56 (Neupogen Inj) 480 mcg DAILY@14 SQ 05/22/17 18:00 05/29/17 13:55 (Heparin Central Flush) 250 units UNSCH PRN IV FLUSH 05/23/17 05:30 05/23/17 05:59 (Heparin Central Flush) 500 units UNSCH IV FLUSH 05/23/17 05:30 05/28/17 06:45 (NS Flush) 5 ml UNSCH PRN IV FLUSH 05/23/17 05:30 05/28/17 06:45 (Cathflo Activase Inj) 2 mg Q2H PRN INTRACATH 05/23/17 10:00 05/23/17 10:42 (Proscar) 5 mg DAILY PO 05/23/17 11:00 05/29/17 07:56 (Flomax) 0.4 mg DAILY PO 05/23/17 11:00 05/29/17 07:56 (Duoneb Neb) 1 ampule Q6HR NEB PRN INH 05/23/17 13:00 05/29/17 13:47 (Megace Liq) 400 mg DAILY PO 05/24/17 09:00 05/29/17 07:56 (Lopressor) 25 mg Q8HR PO 05/23/17 22:00 2/1/18 15:09 (Protonix Inj) 40 mg Q24H IV PUSH 05/24/17 12:00 05/29/17 13:55 (Cardizem) 60 mg Q6HR PO 05/24/17 12:00 05/29/17 18:27 (Cordarone) 200 mg DAILY PO 05/25/17 09:00 05/29/17 07:56 (Lactinex) 1 tab Q12HR PO 05/24/17 21:00 05/29/17 07:55 (K-Lyte Cl Eff) 25 meq Q12HR NG 05/28/17 21:00 05/29/17 07:55 Potassium Chloride 40 meq/ Dextrose 1,020 ml @ 42 mls/hr Q24H IV 05/28/17 20:30 05/29/17 20:29 05/28/17 21:55 (Tylenol) 650 mg Q4H PRN PO 05/28/17 18:30 (Benadryl) 25 mg Q4H PRN PO 05/28/17 18:30 Potassium Chloride 40 meq/ Dextrose 1,020 ml @ 42 mls/hr Q24H IV 05/29/17 09:45 05/30/17 03:36 05/29/17 15:09 Cefepime HCl 2000 mg/Dextrose 100 ml @ 200 mls/hr Q12H IV 05/29/17 15:00 Diltiazem HCl 125 mg/Dextrose 125 ml @ 5 mls/hr TITRATE PRN IV 05/29/17 10:15 (Levsin) 0.125 mg Q4H PRN PO 05/29/17 13:00 (Morphine Inj) 1 mg Q2HR PRN IV PUSH 05/29/17 15:30 05/29/17 15:27 (Morphine Inj) 2 mg Q2HR PRN IV PUSH 05/29/17 15:45 Vital Signs / I&O Vital Signs Date Time Temp Pulse Resp B/P (MAP) Pulse Ox O2 Delivery O2 Flow Rate FiO2 05/29/17 18:00 104 05/29/17 17:00 100 05/29/17 16:07 100 Room Air 05/29/17 16:00 100 05/29/17 15:05 96.9 108 30 113/56 (75) 99 05/29/17 15:00 110 05/29/17 14:00 102 05/29/17 13:00 102 05/29/17 12:56 100 Room Air 05/29/17 12:47 98.2 104 18 107/62 (77) 99 05/29/17 12:00 100 05/29/17 11:00 98 05/29/17 10:06 99.0 05/29/17 10:05 98 30 105/51 100 05/29/17 10:00 94 05/29/17 09:32 98.3 94 30 96/56 99 05/29/17 09:00 94 05/29/17 08:27 21 05/29/17 08:27 21 05/29/17 08:00 96 05/29/17 07:54 99 Room Air 05/29/17 07:42 98.6 96 30 112/42 (65) 99 05/29/17 07:00 96 05/29/17 06:15 98.4 98 32 116/73 (87) 98 05/29/17 03:02 Room Air 05/29/17 03:00 96 05/29/17 02:00 100 05/29/17 01:42 25 05/29/17 01:00 108 05/29/17 00:35 98.6 108 28 113/60 (77) 97 05/29/17 00:35 Room Air 05/29/17 00:10 106 05/28/17 23:00 108 05/28/17 22:00 112 05/28/17 21:22 100.2 112 25 116/58 (77) 98 05/28/17 21:20 Room Air 05/28/17 21:00 110 05/28/17 20:50 100 21 05/28/17 19:55 108 I/O 05/28/17 05/28/17 05/28/17 05/29/17 05/29/17 05/29/17 07:00 15:00 23:00 07:00 15:00 23:00 Intake Total 250 ml 400 ml 1160 ml 289 ml 50 ml Output Total 300 ml 1300 ml 1400 ml Balance -50 ml 400 ml -140 ml 289 ml -1350 ml Intake Oral 250 ml 1060 ml 50 ml IV Total 100 ml 100 ml Packed Cells 400 ml Platelets 189 ml Output Urine Total 300 ml 1300 ml 1400 ml # Voids 4 1 # Bowel Movements 2 1 4 1 3 Physical Exam GENERAL: NAD, AAOx3 SKIN: Warm and dry. HEAD: Atraumatic. Normocephalic. EYES: Pupils equal and round. No scleral icterus. No injection or drainage. ENT: No nasal bleeding or discharge. Mucous membranes pink and moist. NECK: Trachea midline. No JVD. CARDIOVASCULAR: Irregularly irregular RESPIRATORY: No accessory muscle use. Clear to auscultation. Breath sounds equal bilaterally. GASTROINTESTINAL: Abdomen soft, non-tender, nondistended. Hepatic and splenic margins not palpable. MUSCULOSKELETAL: Extremities without clubbing, cyanosis, or edema. No obvious deformities. NEUROLOGICAL: Awake and alert. No obvious cranial nerve deficits. Motor grossly within normal limits. Five out of 5 muscle strength in the arms and legs. Normal speech. PSYCHIATRIC: Appropriate mood and affect; insight and judgment normal. Laboratory Laboratory Tests Test 05/29/17 06:07 05/29/17 11:20 White Blood Count 1.6 TH/MM3 Red Blood Count 2.88 MIL/MM3 Hemoglobin 8.8 GM/DL Hematocrit 25.5 % Mean Corpuscular Volume 88.5 FL Mean Corpuscular Hemoglobin 30.4 PG Mean Corpuscular Hemoglobin Concent 34.4 % Red Cell Distribution Width 14.8 % Platelet Count 7 TH/MM3 28 TH/MM3 Mean Platelet Volume 7.8 FL CBC Comment AUTO DIFF Differential Total Cells Counted 100 Neutrophils % (Manual) 39 % Band Neutrophils % 44 % Lymphocytes % 9 % Monocytes % 2 % Eosinophils % 5 % Neutrophils # (Manual) 1.3 TH/MM3 Metamyelocytes 1 % Nucleated Red Blood Cells 1 /100 WBC Differential Comment FINAL DIFF MANUAL Toxic Granulation 2+ Platelet Estimate RARE Platelet Morphology Comment NORMAL Blood Urea Nitrogen 49 MG/DL Creatinine 1.79 MG/DL Random Glucose 151 MG/DL Total Protein 5.0 GM/DL Albumin 1.9 GM/DL Calcium Level 8.2 MG/DL Alkaline Phosphatase 46 U/L Aspartate Amino Transf (AST/SGOT) 12 U/L Alanine Aminotransferase (ALT/SGPT) 52 U/L Total Bilirubin 0.4 MG/DL Sodium Level 159 MEQ/L Potassium Level 3.2 MEQ/L Chloride Level 132 MEQ/L Carbon Dioxide Level 16.8 MEQ/L Anion Gap 10 MEQ/L Estimat Glomerular Filtration Rate 37 ML/MIN Assessment and Plan Problem List: (1) Paroxysmal A-fib ICD Codes: I48.0 - Paroxysmal atrial fibrillation (2) Lung cancer ICD Codes: C34.90 - Malignant neoplasm of unspecified part of unspecified bronchus or lung Status: Acute (3) Pleural effusion ICD Codes: J90 - Pleural effusion, not elsewhere classified Status: Acute (4) Neutropenia ICD Codes: D70.9 - Neutropenia, unspecified Status: Acute (5) Weakness generalized ICD Codes: R53.1 - Weakness Status: Acute (6) Renal insufficiency ICD Codes: N28.9 - Disorder of kidney and ureter, unspecified Status: Acute (7) Pain ICD Codes: R52 - Pain, unspecified Assessment and Plan 1) Afib with RVR Now more controlled, con't Cardizem/Amiodarone PO If further episodes of Afib with RVR, may need to increase medications but will have to watch with blood pressure Would attempt to eventually wean off Amiodarone if possible over next 1-2 weeks, would prefer not to stay on prison Cardizem can be changed to long acting on discharge Not a candidate for anti-coagulation, not a candidate for ASA 2) EF 60-65% 3) Lung cancer with mets per Heme/Onc 4) Pancytopenia secondary to chemotherapy Receiving platelets 5) Will see PRN, call with questions Problem Qualifiers (1) Lung cancer: Qualified Codes: C34.90 - Malignant neoplasm of unspecified part of unspecified bronchus or lung (2) Neutropenia: Qualified Codes: D70.9 - Neutropenia, unspecified Louie Fox DO May 29, 2017 19:00
[2017-05-29] MEDS: MORPHINE SULFATE 2 MG/ML INJ IV PUSH PRN ×2 (20:32→23:50)
[2017-05-30] VITALS (17 sets, daily range): BP systolic 96–108; BP diastolic 45–59; PULSE 92–118; RESP 25–28; TEMP 97.3–98.8; O2SAT 95–100
[2017-05-30] MEDS: DEXTROSE 5% IV SCH ×4 (03:34→13:58)
[2017-05-30] MEDS: CEFEPIME IV SCH ×4 (03:34→13:58)
[2017-05-30] MEDS: WATER IV SCH ×4 (03:34→13:58)
[2017-05-30] MEDS: DILTIAZEM HCL 60 MG TAB PO SCH ×2 (05:05→12:00)
[2017-05-30] MEDS: METOPROLOL TARTRATE 25 MG TAB PO SCH ×2 (05:05→13:59)
[2017-05-30 05:52] LABS: HEMATOCRIT 23.8 % (39.0-51.0); HEMOGLOBIN 8.2 GM/DL (13.0-17.0); MEAN CELL VOLUME 88.2 FL (80.0-100.0); MEAN CORPUSCULAR HEMOGLOBIN 30.5 PG (27.0-34.0); MEAN CORPUSCULAR HGB CONC 34.6 % (32.0-36.0); MEAN PLATELET VOLUME 7.5 FL (7.0-11.0); WHITE BLOOD COUNT 3.9 TH/MM3 (4.0-11.0)
[2017-05-30 06:12] LABS: PLATELET COUNT 12 TH/MM3 (150-450)
[2017-05-30 06:21] LABS: BICARBONATE 18.4 MEQ/L (21.0-32.0); CALCIUM 7.8 MG/DL (8.5-10.1); CREATININE 1.8 MG/DL (0.60-1.30)
[2017-05-30] MEDS: MORPHINE SULFATE 2 MG/ML INJ IV PUSH PRN ×4 (06:31→13:59)
[2017-05-30 08:07] LABS: BANDS 14 % (0-6); DOHLE BODIES PRESENT (NONE SEEN); LYMPHOCYTES 13 % (9-44); MONOCYTES 2 % (0-8); MYELOCYTES 1 % (0-0); POLYS (SEG NEUTROPHILS) 63 % (16-70)
[2017-05-30] MEDS: UMECLIDINIUM 62.5 MCG/VILANTEROL 25 MCG INHALER INH SCH (08:18)
[2017-05-30] MEDS: LACTOBACILLUS ACIDOPHILUS TAB PO SCH (08:18)
[2017-05-30] MEDS: FOLIC ACID 1 MG TAB PO SCH (08:18)
[2017-05-30] MEDS: TAMSULOSIN HCL 0.4 MG CAP PO SCH (08:18)
[2017-05-30] MEDS: POTASSIUM CHLORIDE 25 MEQ EFFERVESCENT TAB NG SCH (08:18)
[2017-05-30] MEDS: FINASTERIDE 5 MG TAB PO SCH (08:19)
[2017-05-30] MEDS: guaiFENesin E.R. 600 MG TAB PO SCH (08:19)
[2017-05-30] MEDS: MEGESTROL ACETATE SUSP 400 MG/10 ML CUP PO SCH (08:19)
[2017-05-30] MEDS: AMIODARONE 200 MG TAB PO SCH (08:41)
--- NOTE | 2017-05-30 10:45 | HHI.DS ---
Discharge Summary Admission Date May 22, 2017 at 13:45 Discharge Date: May 30, 2017 Admitting Diagnosis Weakness, pleural effusion, lung cancer, neutropenia (1) Lung mass ICD Code: R91.8 - Other nonspecific abnormal finding of lung field (2) Weakness generalized ICD Code: R53.1 - Weakness Status: Acute (3) Neutropenia ICD Code: D70.9 - Neutropenia, unspecified Status: Acute (4) Pleural effusion ICD Code: J90 - Pleural effusion, not elsewhere classified Status: Acute (5) Lung cancer ICD Code: C34.90 - Malignant neoplasm of unspecified part of unspecified bronchus or lung Status: Acute (6) KELLIE (acute kidney injury) ICD Code: N17.9 - Acute kidney failure, unspecified Status: Acute (7) Paroxysmal A-fib ICD Code: I48.0 - Paroxysmal atrial fibrillation (8) Thrombocytopenia ICD Code: D69.6 - Thrombocytopenia, unspecified (9) Hypernatremia ICD Code: E87.0 - Hyperosmolality and hypernatremia (10) Neutropenic fever ICD Code: D70.9 - Neutropenia, unspecified; R50.81 - Fever presenting with conditions classified elsewhere (11) Renal insufficiency ICD Code: N28.9 - Disorder of kidney and ureter, unspecified Status: Acute Procedures none Brief History - From Admission This is a 76-year-old male past medical history of hypertension and 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 History mostly taken from patient's [id number] Gerry. Patient was short of breath and did not want to give a history. Per [id number] patient had chemotherapy on Friday in which yesterday he developed diarrhea, shortness of breathing, generalized weakness, and emesis. Patient has had decreased appetite recently. Positive for chills but denies any fevers. Daughter in law stated that she also checked his blood pressure yesterday in which his blood pressure was in the lower 100s. She stated that on his antihypertensive medication is usually normal. She also stated that patient had increase in his pain medication doses. She patient does complain of pain. Pain is located in the back. Daughter stated that pain has worsened and that is the reason why he had a recent increase and his [place]. Patient was seen in radiation with Leslie Nowak. He stated that they did vitals and he was sent to the emergency department because his vitals. Per ED provider she was told systolic blood pressure was in the 70s. During my interview the patient systolic blood pressure in the low 100s. Patient also asking for his Mucinex and pain medication. Per [id number] patient saw Dr. Young stewardess supervisor and also sees Dr. Gregorio oncologist. Patient continues to smoke about 1-1/2 pack per day which is a lot less from his 3-4 packs a day. Occasionally drinks alcohol. Denies any illicit drug use. All other review system reviewed and negative. All other review system reviewed and negative. CBC/BMP: 05/30/17 0440 05/30/17 0440 Significant Findings Laboratory Tests Test 05/27/17 18:15 05/27/17 21:30 05/28/17 06:30 05/29/17 06:07 Urine Mucus FEW /lpf (OCC) Platelet Count 23 TH/MM3 (150-450) 16 TH/MM3 (150-450) 7 TH/MM3 (150-450) White Blood Count 0.5 TH/MM3 (4.0-11.0) 1.6 TH/MM3 (4.0-11.0) Red Blood Count 2.49 MIL/MM3 (4.50-5.90) 2.88 MIL/MM3 (4.50-5.90) Hemoglobin 7.7 GM/DL (13.0-17.0) 8.8 GM/DL (13.0-17.0) Hematocrit 22.5 % (39.0-51.0) 25.5 % (39.0-51.0) Band Neutrophils % 28 % (0-6) 44 % (0-6) Monocytes % 13 % (0-8) Eosinophils % 9 % (0-4) 5 % (0-4) Neutrophils # (Manual) 0.3 TH/MM3 (1.8-7.7) 1.3 TH/MM3 (1.8-7.7) Toxic Granulation 1+ (NORMAL) 2+ (NORMAL) Toxic Vacuolation PRESENT (NONE SEEN) Dohle Bodies PRESENT (NONE SEEN) Platelet Estimate RARE (NORMAL) RARE (NORMAL) Rouleau PRESENT (NORMAL) Blood Urea Nitrogen 51 MG/DL (7-18) 49 MG/DL (7-18) Creatinine 1.51 MG/DL (0.60-1.30) 1.79 MG/DL (0.60-1.30) Random Glucose 143 MG/DL (74-106) 151 MG/DL (74-106) Calcium Level 8.3 MG/DL (8.5-10.1) 8.2 MG/DL (8.5-10.1) Sodium Level 157 MEQ/L (136-145) 159 MEQ/L (136-145) Potassium Level 2.5 MEQ/L (3.5-5.1) 3.2 MEQ/L (3.5-5.1) Chloride Level 130 MEQ/L (98-107) 132 MEQ/L (98-107) Carbon Dioxide Level 17.4 MEQ/L (21.0-32.0) 16.8 MEQ/L (21.0-32.0) Estimat Glomerular Filtration Rate 45 ML/MIN (>89) 37 ML/MIN (>89) Nucleated Red Blood Cells 1 /100 WBC (0-0) Total Protein 5.0 GM/DL (6.4-8.2) Albumin 1.9 GM/DL (3.4-5.0) Aspartate Amino Transf (AST/SGOT) 12 U/L (15-37) Test 05/29/17 11:20 05/30/17 04:40 Platelet Count 28 TH/MM3 (150-450) 12 TH/MM3 (150-450) White Blood Count 3.9 TH/MM3 (4.0-11.0) Red Blood Count 2.70 MIL/MM3 (4.50-5.90) Hemoglobin 8.2 GM/DL (13.0-17.0) Hematocrit 23.8 % (39.0-51.0) Band Neutrophils % 14 % (0-6) Eosinophils % 7 % (0-4) Myelocytes 1 % (0-0) Dohle Bodies PRESENT (NONE SEEN) Platelet Estimate RARE (NORMAL) Blood Urea Nitrogen 51 MG/DL (7-18) Creatinine 1.80 MG/DL (0.60-1.30) Random Glucose 141 MG/DL (74-106) Calcium Level 7.8 MG/DL (8.5-10.1) Sodium Level 161 MEQ/L (136-145) Potassium Level 3.3 MEQ/L (3.5-5.1) Chloride Level 133 MEQ/L (98-107) Carbon Dioxide Level 18.4 MEQ/L (21.0-32.0) Estimat Glomerular Filtration Rate 37 ML/MIN (>89) Imaging Last Impressions Lower Extremity Ultrasound 05/27/17 0000 Signed Impressions: Service Date/Time: Saturday, May 27, 2017 07:56 - CONCLUSION: Negative examination. No evidence of DVT. Randolph Heart MD ADDENDUM: Thrombus is present in the right greater saphenous vein. Randolph Heart MD Chest X-Ray 05/27/17 0000 Signed Impressions: Service Date/Time: Saturday, May 27, 2017 10:44 - CONCLUSION: 1. Right basilar pleural-parenchymal density which is more prominent on current study. Yung Lim MD Abdomen X-Ray 05/24/17 0000 Signed Impressions: Service Date/Time: Wednesday, May 24, 2017 15:55 - CONCLUSION: Nonspecific bowel gas pattern with moderately distended loops of small bowel in the left upper quadrant. Most likely to represent ileus. Gerald Preciado MD Venous Access Device Injection 05/23/17 0000 Signed Impressions: Service Date/Time: Tuesday, May 23, 2017 17:18 - CONCLUSION: 1. Port catheter and tubing are intact. 2. Port tip projects over the central venous system. There appears to be a persistent fibrin sheath at the catheter tip despite recent TPA infusion. Derek Davis MD Thoracentesis Ultrasound 05/22/17 0000 Signed Impressions: Service Date/Time: April 14:56 - CONCLUSION: Uncomplicated ultrasound guided right thoracentesis. Sampling was not requested. Quinn Huang Jr., MD Abdomen/Pelvis CT 05/22/17 0000 Signed Impressions: Service Date/Time: April 13:32 - CONCLUSION: 1. Diffuse metastatic disease to the visualized bony structures, left adrenal gland, and visualized lung parenchyma. Special note is made of destructive lesions involving the T10 and L1 levels that involve the left neural foramen and could be possible source of the left radiculopathy. 2. Large right-sided pleural effusion. 3. Prior cholecystectomy. Quinn Huang Jr., MD PE at Discharge GENERAL: in NAD CARDIOVASCULAR: Tachycardic in the 110s rate and rhythm without murmurs, gallops , or rubs. RESPIRATORY: Decreased breath sounds in the right lower area. Otherwise clear to auscultation. Dressing in place on the right side. No accessory muscle use. GASTROINTESTINAL: Abdomen soft,neg TTP, nondistended. Negative for any peritoneal signs. MUSCULOSKELETAL: No cyanosis, or edema. BACK: Nontender without obvious deformity. No CVA tenderness. Hospital Course This is a 76-year-old male with 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 Chest x-ray shows right-sided pleural effusion that was reviewed by me. -Status post therapeutic thoracentesis on 05/22 by IR. -Drastic improvement in his respiratory after thoracentesis. Raw Sampler Dr. Young consulted stated that patient is stable can follow up as outpatient. Paroxysmal atrial fibrillation with RVR -Rate better control. Status post Cardizem drip and amiodarone drip. -Now on Cardizem and amiodarone by mouth. Per excel specialist would attempt to eventually wean off amiodarone in the next 1-2 weeks. Patient is also not candidate for anticoagulation or aspirin due to thrombocytopenia. On discharge Cardizem can be changed to long-acting. -Echo reviewed with EF of 60-65%. Non-small cell lung cancer with metastases to the bone Hemoptysis 2/2 lung CA -Dr. Gregorio consulted and following. - Pulm also ff Dr Young Pancytopenia secondary to chemotherapy -Status post chemotherapy on Friday -Oncologist managing. - Continue Neupogen -Transfusion per oncologist. Hypotension on admission. -Review labs. Patient is third spacing with low albumin. Decrease oral intake along with diarrhea. -Improved on IV fluids. Status post albumin given. -Resolved. Hypokalemia Worsening Hypernatremia Poss DI -Patient has decreased oral intake and he has been on fluids. DC IVF. Start D5 with KCl supplement as with low K. Give extra potassium bicarb as willgib=ve lasix with blood transfusion Continue to trend and monitor sodium. Consult nephrology for evaluation, appreciate recommendations. Diarrhea, resolving -Mostly secondary to chemotherapy. C. difficile negative. -Reviewed CT scan of the abdomen which shows metastases to the bones, left adrenal gland, and lungs. -on Lactinex. Abdominal pain -Today abdominal pain resolved. Pain was more in the epigastric area. -Patient on Protonix. -KUB on 05/24 shows ileus. Patient is asymptomatic. Education given to patient that ileus most likely secondary to pain medication in which patient is in a difficult situation since since does have metastases to the bones. Acute on chronic pain secondary to metastatic disease -Pain medication adjusted by oncologist. Patient now on PO Dilaudid. Acute on chronic renal failure -Patient was recently taken off of ibuprofen due to worsening renal function. -Most likely secondary to combination of hypotension and ibuprofen use. Not recommend NSAID use. - Urologist was consulted and stated very unlikely due to BPH. Patient was started on Flomax and Proscar. -Chronic continues to improve. Avoid nephrotoxins. Continue trend creatinine and strict ins and outs. Hypertension -Patient on multiple medication due to age fibrillation with RVR. Failure to thrive -Secondary to cancer and chemotherapy treatment. -On Megace. Dietitian consulted. NPO at this time per ST Tobacco dependence -Patient has decreased amount of cigarettes he is smoking. Smoking cessation. DVT prophylaxis -Chemoprophylaxis held secondary to anticipating thoracentesis. Discharge Planning Poor prognosis. Transfusing 1U pRBCs 05/28/17 Patient is deteriorating consult palliative care, family /patient decided for home with hospice. Code status DNR Discharged home with hospice, patient deteriorating Pt Condition on Discharge: Deteriorating Discharge Disposition: Hospice/ Home Discharge Time: > 30 minutes Discharge Instructions Speech Therapy-Diet Recommends: Mechanical Soft, Shively Thickened Liquids Continued Medications: Amlodipine (Amlodipine) 5 Mg Tab 5 MG PO DAILY for Blood Pressure Management, #30 TAB 0 Refills Ascorbic Acid (Vitamin C) 250 Mg Tab 500 MG PO DAILY for Nutritional Supplement, TAB 0 Refills Coenzyme Q10 (Ubidecarenone) (Coq-10 Tr) 100 Mg Cap 100 MG PO DAILY Dexamethasone (Dexamethasone) 1 Mg Tab 1 MG PO DIRECTED, TAB 0 Refills Take 1 tablet (1mg) 2 days before & day after Chemo Fentanyl Patch 72 HR (Duragesic Patch 72 HR) 12 Mcg/Hr Patch 24 MCG T-DERMAL Q72H for Pain Management, #10 PATCH 0 Refills Remove old patch when new one placed. Finasteride (Finasteride) 5 Mg Tab 5 MG PO DAILY for Manage Prostate Problems, #30 TAB 0 Refills Do not crush. Folic Acid (Folic Acid) 1 Mg Tablet 1 MG PO DAILY for Nutritional Supplement Hydrocodone-Acetaminophen ([place]) 7.5-325 mg Tab 1 TAB PO Q4-6H PRN for PAIN, TAB 0 Refills Lactulose Liq (Lactulose Liq) 10 Gm/15 Ml Soln 15 ML PO Q6H PRN for CONSTIPATION, ML 0 Refills Lisinopril (Lisinopril) 40 Mg Tab 40 MG PO DAILY for Blood Pressure Management, #30 TAB 0 Refills Loperamide (Imodium A-D) 2 Mg Capsule 2 MG PO DIRECTED PRN for DIARRHEA, CAP 0 Refills One capsule after each loose stool. Not to exceed 4 tablets per day. Metoprolol Tartrate (Metoprolol Tartrate) 50 Mg Tab 50 MG PO DAILY, #30 TAB 0 Refills Ondansetron (Zofran) 8 Mg Tab 8 MG PO TID for Nausea/Vomiting, TAB 0 Refills Pomegranate Fruit Extract (Pomegranate) 250 Mg Capsule 250 MG PO DAILY for Nutritional Supplement Prochlorperazine Maleate (Prochlorperazine Maleate) 10 Mg Tab 10 MG PO HS, TAB 0 Refills Resveratrol (Resveratrol) 250 Mg Cap 250 MG PO DAILY for Nutritional Supplement Selenium (Oceanic Selenium) 50 Mcg Tab 50 MCG PO DAILY for Nutritional Supplement Spironolactone (Spironolactone) 50 Mg Tab 50 MG PO DAILY, #30 TAB 0 Refills Umeclidinium-Vilanterol Inh (Anoro Ellipta Inh) 62.5-25 Mcg/Act Aero 1 PUFF INH DAILY for COPD, #1 INHALER 0 Refills Vitamin A (Vitamin A) 25,000 Unit Capsule 35128 UNITS PO DAILY for Nutritional Supplement Vitamin E Acid Succinate (Vitamin E) 400 Unit Tablet 400 UNITS PO DAILY for Nutritional Supplement Cris Chappell MD May 30, 2017 10:45
--- NOTE | 2017-05-30 10:45 | HHI.PR ---
Subjective Remarks Patient is in bed appears in acute distress with shortness of breath. Her blood overnight. No fever or chills. Is nothing by mouth as he is deteriorating. He is recognizing his son at bedside. No abdominal pain. Says she doesn't feel good, not able to specify, moaning at times. Objective Vitals Vital Signs Date Time Temp Pulse Resp B/P (MAP) Pulse Ox O2 Delivery O2 Flow Rate FiO2 05/30/17 08:33 98.1 97 25 108/59 (75) 95 05/30/17 08:00 92 05/30/17 05:00 98 05/30/17 04:36 98.8 118 28 106/45 (65) 97 05/30/17 04:00 103 05/30/17 03:00 100 05/30/17 02:00 102 05/30/17 01:00 94 05/30/17 00:02 97 05/29/17 23:31 97.6 108 27 107/58 (74) 96 05/29/17 23:00 98 05/29/17 22:00 98 05/29/17 21:00 104 05/29/17 20:07 106 05/29/17 19:48 99.6 105 25 118/59 (78) 99 05/29/17 18:00 104 05/29/17 17:00 100 05/29/17 16:07 100 Room Air 05/29/17 16:00 100 05/29/17 15:05 96.9 108 30 113/56 (75) 99 05/29/17 15:00 110 05/29/17 14:00 102 05/29/17 13:00 102 05/29/17 12:56 100 Room Air 05/29/17 12:47 98.2 104 18 107/62 (77) 99 05/29/17 12:00 100 05/29/17 11:00 98 I/O 05/29/17 05/29/17 05/29/17 05/30/17 05/30/17 05/30/17 07:00 15:00 23:00 07:00 15:00 23:00 Intake Total 289 ml 50 ml Output Total 1400 ml 400 ml Balance 289 ml -1350 ml -400 ml Intake Oral 50 ml IV Total 100 ml Platelets 189 ml Output Urine Total 1400 ml 400 ml # Voids 1 # Bowel Movements 1 3 1 Result Diagram: 05/30/17 0440 05/30/17 0440 Imaging Last Impressions Lower Extremity Ultrasound 05/27/17 0000 Signed Impressions: Service Date/Time: Saturday, May 27, 2017 07:56 - CONCLUSION: Negative examination. No evidence of DVT. Randolph Heart MD ADDENDUM: Thrombus is present in the right greater saphenous vein. Randolph Heart MD Chest X-Ray 05/27/17 0000 Signed Impressions: Service Date/Time: Saturday, May 27, 2017 10:44 - CONCLUSION: 1. Right basilar pleural-parenchymal density which is more prominent on current study. Yung Lim MD Abdomen X-Ray 05/24/17 0000 Signed Impressions: Service Date/Time: Wednesday, May 24, 2017 15:55 - CONCLUSION: Nonspecific bowel gas pattern with moderately distended loops of small bowel in the left upper quadrant. Most likely to represent ileus. Gerald Preciado MD Venous Access Device Injection 05/23/17 0000 Signed Impressions: Service Date/Time: Tuesday, May 23, 2017 17:18 - CONCLUSION: 1. Port catheter and tubing are intact. 2. Port tip projects over the central venous system. There appears to be a persistent fibrin sheath at the catheter tip despite recent TPA infusion. Derek Davis MD Thoracentesis Ultrasound 05/22/17 0000 Signed Impressions: Service Date/Time: April 14:56 - CONCLUSION: Uncomplicated ultrasound guided right thoracentesis. Sampling was not requested. Quinn Huang Jr., MD Abdomen/Pelvis CT 05/22/17 0000 Signed Impressions: Service Date/Time: April 13:32 - CONCLUSION: 1. Diffuse metastatic disease to the visualized bony structures, left adrenal gland, and visualized lung parenchyma. Special note is made of destructive lesions involving the T10 and L1 levels that involve the left neural foramen and could be possible source of the left radiculopathy. 2. Large right-sided pleural effusion. 3. Prior cholecystectomy. Quinn Huang Jr., MD Objective Remarks GENERAL: in NAD CARDIOVASCULAR: Tachycardic in the 110s rate and rhythm without murmurs, gallops , or rubs. RESPIRATORY: Decreased breath sounds in the right lower area. Otherwise clear to auscultation. Dressing in place on the right side. No accessory muscle use. GASTROINTESTINAL: Abdomen soft,neg TTP, nondistended. Negative for any peritoneal signs. MUSCULOSKELETAL: No cyanosis, or edema. BACK: Nontender without obvious deformity. No CVA tenderness. 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 Chest x-ray shows right-sided pleural effusion that was reviewed by me. -Status post therapeutic thoracentesis on 05/22 by IR. -Drastic improvement in his respiratory after thoracentesis. Pyroglazer Dr. Young consulted stated that patient is stable can follow up as outpatient. Paroxysmal atrial fibrillation with RVR -Rate better control. Status post Cardizem drip and amiodarone drip. -Now on Cardizem and amiodarone by mouth. Per freezer operator would attempt to eventually wean off amiodarone in the next 1-2 weeks. Patient is also not candidate for anticoagulation or aspirin due to thrombocytopenia. On discharge Cardizem can be changed to long-acting. -Echo reviewed with EF of 60-65%. Non-small cell lung cancer with metastases to the bone Hemoptysis 2/2 lung CA -Dr. Gregorio consulted and following. - Pulm also ff Dr Young Pancytopenia secondary to chemotherapy -Status post chemotherapy on Friday -Oncologist managing. - Continue Neupogen -Transfusion per oncologist. Hypotension on admission. -Review labs. Patient is third spacing with low albumin. Decrease oral intake along with diarrhea. -Improved on IV fluids. Status post albumin given. -Resolved. Hypokalemia Worsening Hypernatremia Poss DI -Patient has decreased oral intake and he has been on fluids. DC IVF. Start D5 with KCl supplement as with low K. Give extra potassium bicarb as willgib=ve lasix with blood transfusion . Continue to trend and monitor sodium. Consult nephrology for evaluation, appreciate recommendations. Diarrhea, resolving -Mostly secondary to chemotherapy. C. difficile negative. -Reviewed CT scan of the abdomen which shows metastases to the bones, left adrenal gland, and lungs. -on Lactinex. Abdominal pain -Today abdominal pain resolved. Pain was more in the epigastric area. -Patient on Protonix. -KUB on 05/24 shows ileus. Patient is asymptomatic. Education given to patient that ileus most likely secondary to pain medication in which patient is in a difficult situation since since does have metastases to the bones. Acute on chronic pain secondary to metastatic disease -Pain medication adjusted by oncologist. Patient now on PO Dilaudid. Acute on chronic renal failure -Patient was recently taken off of ibuprofen due to worsening renal function. -Most likely secondary to combination of hypotension and ibuprofen use. Not recommend NSAID use. - Urologist was consulted and stated very unlikely due to BPH. Patient was started on Flomax and Proscar. -Chronic continues to improve. Avoid nephrotoxins. Continue trend creatinine and strict ins and outs. Hypertension -Patient on multiple medication due to age fibrillation with RVR. Failure to thrive -Secondary to cancer and chemotherapy treatment. -On Megace. Dietitian consulted. NPO at this time per ST Tobacco dependence -Patient has decreased amount of cigarettes he is smoking. Smoking cessation. DVT prophylaxis -Chemoprophylaxis held secondary to anticipating thoracentesis. Discharge Planning Poor prognosis. Transfusing 1U pRBCs 05/28/17 Patient is deteriorating consult palliative care, poss DC to hospice Code status DNR Discussed with the patient, nurse, family at bedside, Cris Morejon MD May 30, 2017 10:45
--- NOTE | 2017-05-30 10:52 | HHI.NPPN ---
Subjective History of Present Illness 76 year old male with history of smoking and lung cancer stage IV Additional Remarks Lethargic and confused Objective Data Data Vital Signs Date Time Temp Pulse Resp B/P (MAP) Pulse Ox O2 Delivery O2 Flow Rate FiO2 05/30/17 08:33 98.1 97 25 108/59 (75) 95 05/30/17 08:00 92 05/30/17 05:00 98 05/30/17 04:36 98.8 118 28 106/45 (65) 97 05/30/17 04:00 103 05/30/17 03:00 100 05/30/17 02:00 102 05/30/17 01:00 94 05/30/17 00:02 97 05/29/17 23:31 97.6 108 27 107/58 (74) 96 05/29/17 23:00 98 05/29/17 22:00 98 05/29/17 21:00 104 05/29/17 20:07 106 05/29/17 19:48 99.6 105 25 118/59 (78) 99 05/29/17 18:00 104 05/29/17 17:00 100 05/29/17 16:07 100 Room Air 05/29/17 16:00 100 05/29/17 15:05 96.9 108 30 113/56 (75) 99 05/29/17 15:00 110 05/29/17 14:00 102 05/29/17 13:00 102 05/29/17 12:56 100 Room Air 05/29/17 12:47 98.2 104 18 107/62 (77) 99 05/29/17 12:00 100 05/29/17 11:00 98 -: 05/30/17 0440 05/30/17 0440 Physical Exam General Appearance: Pale Neck Neck Exam: Neck Supple Pulmonary Resp Exam: Rhonchi, Decreased Bases Cardiology CV Exam: Tachycardia Gastrointestinal/Abdomen GI Exam: Soft, Non-Tender Extremeties Extremities Exam: No Edema Neurologic Neuro Exam: Stuporous Assessment/Plan Problem List: (1) KELLIE (acute kidney injury) ICD Codes: N17.9 - Acute kidney failure, unspecified Status: Acute Plan: Patient has progressive renal failure going into multiorgan failure complication of pneumonia with respiratory distress, sepsis with pancytopenia Possible ARDS Lung cancer stage IV poorly differentiated non-small cell Prognosis guarded to poor Continue with IV fluid D5 with potassium supplements 5% 500 cc of IV albumin Sodium is higher replace potassium Creatinine 1.9 Discussed with family advice palliative care poor prognosis (2) Lung cancer ICD Codes: C34.90 - Malignant neoplasm of unspecified part of unspecified bronchus or lung Status: Acute Plan: Prognosis guarded (3) Hypernatremia ICD Codes: E87.0 - Hyperosmolality and hypernatremia Plan: Due to dehydration (4) Diarrhea ICD Codes: R19.7 - Diarrhea, unspecified Plan: Continue to monitor (5) Thrombocytopenia ICD Codes: D69.6 - Thrombocytopenia, unspecified Plan: Due to septicemia Problem Qualifiers (1) Lung cancer: Qualified Codes: C34.90 - Malignant neoplasm of unspecified part of unspecified bronchus or lung Sudeep Nunes MD May 30, 2017 10:52
--- NOTE | 2017-05-30 11:18 | PD.ONC.PN ---
Subjective Subjective Remarks Afebrile overnight. Patient resting in bed with son in law at bedside. He is recently medicated with morphine and is somnolent/confused. I ask him if he is having any pain and he states "no." I ask him if he feels short of breath and he states, "no." Objective Data Date Time Temp Pulse Resp B/P (MAP) Pulse Ox O2 Delivery O2 Flow Rate FiO2 05/30/17 08:33 98.1 97 25 108/59 (75) 95 05/30/17 08:00 92 05/30/17 05:00 98 05/30/17 04:36 98.8 118 28 106/45 (65) 97 05/30/17 04:00 103 05/30/17 03:00 100 05/30/17 02:00 102 05/30/17 01:00 94 05/30/17 00:02 97 05/29/17 23:31 97.6 108 27 107/58 (74) 96 05/29/17 23:00 98 05/29/17 22:00 98 05/29/17 21:00 104 05/29/17 20:07 106 05/29/17 19:48 99.6 105 25 118/59 (78) 99 05/29/17 18:00 104 05/29/17 17:00 100 05/29/17 16:07 100 Room Air 05/29/17 16:00 100 05/29/17 15:05 96.9 108 30 113/56 (75) 99 05/29/17 15:00 110 05/29/17 14:00 102 05/29/17 13:00 102 05/29/17 12:56 100 Room Air 05/29/17 12:47 98.2 104 18 107/62 (77) 99 05/29/17 12:00 100 05/30/17 05/30/17 05/30/17 07:00 15:00 23:00 Output Total 400 ml Balance -400 ml Result Diagram: 05/30/1743905/30/17 044 Laboratory Results Laboratory Tests Test 05/29/17 11:20 05/30/17 04:40 Platelet Count 28 TH/MM3 12 TH/MM3 White Blood Count 3.9 TH/MM3 Red Blood Count 2.70 MIL/MM3 Hemoglobin 8.2 GM/DL Hematocrit 23.8 % Mean Corpuscular Volume 88.2 FL Mean Corpuscular Hemoglobin 30.5 PG Mean Corpuscular Hemoglobin Concent 34.6 % Red Cell Distribution Width 15.0 % Mean Platelet Volume 7.5 FL CBC Comment AUTO DIFF Differential Total Cells Counted 100 Neutrophils % (Manual) 63 % Band Neutrophils % 14 % Lymphocytes % 13 % Monocytes % 2 % Eosinophils % 7 % Neutrophils # (Manual) 3.0 TH/MM3 Myelocytes 1 % Differential Comment FINAL DIFF MANUAL Dohle Bodies PRESENT Platelet Estimate RARE Platelet Morphology Comment NORMAL Red Cell Morphology Comment NORMAL Blood Urea Nitrogen 51 MG/DL Creatinine 1.80 MG/DL Random Glucose 141 MG/DL Calcium Level 7.8 MG/DL Sodium Level 161 MEQ/L Potassium Level 3.3 MEQ/L Chloride Level 133 MEQ/L Carbon Dioxide Level 18.4 MEQ/L Anion Gap 10 MEQ/L Estimat Glomerular Filtration Rate 37 ML/MIN Culture Results Microbiology Date/Time Source Procedure Growth Status 05/27/17 21:30 Blood Line Aerobic Blood Culture - Preliminary NO GROWTH IN 3 DAYS Resulted 05/27/17 21:30 Blood Line Anaerobic Blood Culture - Preliminary NO GROWTH IN 3 DAYS Resulted 05/27/17 15:06 Blood Peripheral Aerobic Blood Culture - Preliminary NO GROWTH IN 3 DAYS Resulted 05/27/17 15:06 Blood Peripheral Anaerobic Blood Culture - Preliminary NO GROWTH IN 3 DAYS Resulted 05/27/17 11:15 Blood Peripheral Aerobic Blood Culture - Preliminary NO GROWTH IN 3 DAYS Resulted 05/27/17 11:15 Blood Peripheral Anaerobic Blood Culture - Preliminary NO GROWTH IN 3 DAYS Resulted Administered Medications Medications (Trade) Dose Ordered Sig/Javier Route PRN Reason Start Time Stop Time Status Last Admin Dose Admin Sodium Chloride (NS Flush) 2 ml UNSCH PRN IV FLUSH FLUSH AFTER USING IV ACCESS 05/22/17 13:45 05/26/17 06:28 Sodium Chloride (NS Flush) 2 ml BID IV FLUSH 05/22/17 21:00 05/29/17 20:33 Ondansetron HCl (Zofran Inj) 4 mg Q6H PRN IVP NAUSEA OR VOMITING 05/22/17 13:45 05/24/17 02:19 Guaifenesin (Mucinex Er) 1,200 mg BID PO 05/22/17 14:30 05/29/17 20:32 Folic Acid (Folate) 1 mg DAILY PO 05/23/17 09:00 05/29/17 07:56 Filgrastim (Neupogen Inj) 480 mcg DAILY@14 SQ 05/22/17 18:00 05/29/17 13:55 Heparin Sodium (Porcine) (Heparin Central Flush) 250 units UNSCH PRN IV FLUSH SEE PROTOCOL TABLE 05/23/17 05:30 05/23/17 05:59 Heparin Sodium (Porcine) (Heparin Central Flush) 500 units UNSCH IV FLUSH 05/23/17 05:30 05/28/17 06:45 Sodium Chloride (NS Flush) 5 ml UNSCH PRN IV FLUSH FLUSH AFTER USING IV ACCESS 05/23/17 05:30 05/28/17 06:45 Alteplase, Recombinant (Cathflo Activase Inj) 2 mg Q2H PRN INTRACATH clotted catheter 05/23/17 10:00 05/23/17 10:42 Finasteride (Proscar) 5 mg DAILY PO 05/23/17 11:00 05/29/17 07:56 Tamsulosin HCl (Flomax) 0.4 mg DAILY PO 05/23/17 11:00 05/29/17 07:56 Albuterol/ Ipratropium (Duoneb Neb) 1 ampule Q6HR NEB PRN INH sob 05/23/17 13:00 05/29/17 13:47 Megestrol Acetate (Megace Liq) 400 mg DAILY PO 05/24/17 09:00 05/29/17 07:56 Metoprolol Tartrate (Lopressor) 25 mg Q8HR PO 05/23/17 22:00 05/30/17 05:05 Pantoprazole Sodium (Protonix Inj) 40 mg Q24H IV PUSH 05/24/17 12:00 05/29/17 13:55 Diltiazem HCl (Cardizem) 60 mg Q6HR PO 05/24/17 12:00 05/30/17 05:05 Amiodarone HCl (Cordarone) 200 mg DAILY PO 05/25/17 09:00 05/30/17 08:41 Lactobacillus Acidophilus (Lactinex) 1 tab Q12HR PO 05/24/17 21:00 05/29/17 07:55 Potassium Bicarb/ Potassium Chloride (K-Lyte Cl Eff) 25 meq Q12HR NG 05/28/17 21:00 05/29/17 07:55 Cefepime HCl 2000 mg/Dextrose 100 ml @ 200 mls/hr Q12H IV 05/29/17 15:00 05/30/17 03:34 Morphine Sulfate (Morphine Inj) 1 mg Q2HR PRN IV PUSH air hunger or pain 1-4 05/29/17 15:30 05/29/17 15:27 Morphine Sulfate (Morphine Inj) 2 mg Q2HR PRN IV PUSH pain greater than 5 05/29/17 15:45 05/30/17 08:41 Objective Remarks GENERAL: Elderly male, disheveled, somnolent, lying in bed resting. SKIN: Warm and dry. HEAD: Normocephalic. EYES: No injection or drainage. NECK: Supple, trachea midline. CARDIOVASCULAR: +S1/S2 RESPIRATORY: anterior eldridge with scattered rhonchi GASTROINTESTINAL: Abdomen soft, non-tender, nondistended. EXTREMITIES: No cyanosis NEUROLOGICAL: somnolent but awake. answers some questions "yes" or "no" Assessment/Plan Problem List: (1) Lung cancer ICD Codes: C34.90 - Malignant neoplasm of unspecified part of unspecified bronchus or lung Status: Acute Plan: --family is considering hospice. History: -- found to have a large pleural based mass in the medial aspect of the right upper lobe with bony metastatic disease. --CT/PET scan shows evidence of metastatic disease to the left adrenal gland in addition to a right pleural effusion and questionable solitary metastatic lesion to the liver. --Biopsy showed a poorly differentiated non-small cell lung cancer, adenocarcinoma histology. EGFR, ALK, PD-L1 are still pending. --was offered palliative chemotherapy with carboplatin and Alimta on April. Neulasta was requested through his insurance company, but was denied given that the stated risk of neutropenic fever associated with Alimta and carboplatin is only 5%. (2) Pain ICD Codes: R52 - Pain, unspecified Plan: --on PRN morphine Pain: --CT abdomen and pelvis showed diffuse mets to the bony structures and a destructive lesion at T10 and 11 that is probably a source of his radiculopathy. other sites are being targeted with radiation. (3) Thrombocytopenia ICD Codes: D69.6 - Thrombocytopenia, unspecified Plan: --continue to transfuse as needed. (4) Neutropenic fever ICD Codes: D70.9 - Neutropenia, unspecified; R50.81 - Fever presenting with conditions classified elsewhere (5) Renal insufficiency ICD Codes: N28.9 - Disorder of kidney and ureter, unspecified Status: Acute (6) Hypernatremia ICD Codes: E87.0 - Hyperosmolality and hypernatremia Assessment 76y/o male with metastatic NSCLC admitted with chemotherapy induced neutropenia , worsening pleural effusion, worsened renal insufficiency and hypotension. --s/ p thoracentesis. h/o COPD Chronic pain Chronic tobacco use Metastatic [id number]-[id number]-plry lung cancer adenocarcinoma Histology. Chronic renal insufficiency Chronic anemia Plan 1. continue supportive care with IVF, PRN morphine. 2. patient declining. family considering home with hospice versus care center with hospice. Problem Qualifiers (1) Lung cancer: Qualified Codes: C34.90 - Malignant neoplasm of unspecified part of unspecified bronchus or lung Rosalinda Milian May 30, 2017 11:18
[2017-05-30] MEDS ORDERED: POTASSIUM CHLOR 20 MEQ PREMIX 100 ML IV ONE (11:45)
[2017-05-30] MEDS: PANTOPRAZOLE SODIUM 40 MG VIAL IV PUSH SCH (12:00)
[2017-05-30] MEDS ORDERED: ALBUMIN 5% INJ 500 ML IV ONE (12:00)
[2017-05-30] MEDS ORDERED: POTASSIUM CHLORIDE 8 MEQ CONTROLLED RELEASE TAB PO ONE (12:00)
[2017-05-30] MEDS: FILGRASTIM 480 MCG/1.6 ML VIAL SQ SCH (13:58)
== END 2017-05-30 16:10 | disposition hospice, home (50) | DRG 189 ==
LOC: NEPC 12:09 → NEDA 13:45 → NEDH 18:58 → HCIN 22:10
PROVIDERS: ADMIT Family Medicine; ATTEND Hospitalist
PROC: 0W993ZZ Drainage of Right Pleural Cavity, Percutaneous Approach (ICD-10-PCS; principal; 2017-05-22)
PROC: 3C1ZX8Z Irrigation of Indwelling Device using Irrigating Substance, External Approach (ICD-10-PCS; 2017-05-23)
PROC: 30233R1 Transfusion of Nonautologous Platelets into Peripheral Vein, Percutaneous Approach (ICD-10-PCS; 2017-05-27)
PROC: 30233N1 Transfusion of Nonautologous Red Blood Cells into Peripheral Vein, Percutaneous Approach (ICD-10-PCS; 2017-05-27)
DX: J96.01 Acute respiratory failure with hypoxia (principal); N17.9 Acute kidney failure, unspecified; J91.0 Malignant pleural effusion; D61.810 Antineoplastic chemotherapy induced pancytopenia; E23.2 Diabetes insipidus; E87.0 Hyperosmolality and hypernatremia; C79.51 Secondary malignant neoplasm of bone; K52.1 Toxic gastroenteritis and colitis; C79.72 Secondary malignant neoplasm of left adrenal gland; C34.11 Malignant neoplasm of upper lobe, right bronchus or lung; R04.2 Hemoptysis; K56.7 Ileus, unspecified; D70.1 Agranulocytosis secondary to cancer chemotherapy; I95.9 Hypotension, unspecified; R62.7 Adult failure to thrive; T45.1X5A Adverse effect of antineoplastic and immunosuppressive drugs, initial encounter; F17.210 Nicotine dependence, cigarettes, uncomplicated; G89.3 Neoplasm related pain (acute) (chronic); R53.1 Weakness; N40.1 Benign prostatic hyperplasia with lower urinary tract symptoms; I12.9 Hypertensive chronic kidney disease with stage 1 through stage 4 chronic kidney disease, or unspecified chronic kidney disease; N18.9 Chronic kidney disease, unspecified; J43.9 Emphysema, unspecified; I48.0 Paroxysmal atrial fibrillation; E87.6 Hypokalemia; E86.0 Dehydration; R35.1 Nocturia; R39.14 Feeling of incomplete bladder emptying; Z51.5 Encounter for palliative care; Z66 Do not resuscitate
CPT/HCPCS: 32555; 36430; 36591; 36598; 71045; 74018; 74176; 77336; 77412; 77427; 80048; 80053; 81001; 83690; 83735; 83880; 84100; 84132; 85007; 85027; 85049; 85384; 85610; 85730; 86850; 86900; 86901; 86920; 87040; 87493; 87804; 93005; 93306; 93970; 94150; 94640; 94664; 96360; 99214; C1729; C9113; J0153; J0282; J0692; J1160; J1170; J1442; J1642; J1940; J2270; J2405; J2997; J3475; J3480; J7030; J7050; J7070; P9016; P9035; P9037; P9045; P9047; Q9967